=== PATIENT | female | born 1950 | race Caucasian/White ===

== ENCOUNTER → 2021-09-14 12:34 | Outpatient (CLI) | payer MEDICARE, MEDICAID, SELFPAY ==
[2021-09-14 13:04] LABS: Basophils # 0.1 K/mm3 (0-0.2); Basophils % 1.1 % (0.1-2.0); Eosinophils # 0.4 K/mm3 (0.0-0.4); Eosinophils % 4.3 % (0.1-12.0); Hemoglobin 15.9 g/dL (12.2-16.2); Lymphocytes # 2.3 K/mm3 (0.7-4.5); Lymphocytes % 23.9 % (10-50); Mean Corpuscular HGB Conc 31.3 g/dL (31.8-35.4); Mean Corpuscular Hemoglobin 30.2 pg (27.0-31.2); Mean Corpuscular Volume 96.7 fl (81-99); Mean Platelet Volume 10.1 fl (7.4-10.4); Monocytes # 0.4 K/mm3 (0.1-1.0); Neutrophils # 6.5 K/mm3 (1.8-7.8); Neutrophils % 66.7 % (37.0-80.0); Platelet Count 211 K/mm3 (142-424); Red Blood Count 5.28 M/mm3 (4.20-5.40); Red Cell Distribution Width 14.6 % (11.5-17.5); White Blood Count 9.8 K/mm3 (4.8-10.8)
[2021-09-14 14:06] LABS: Alanine Aminotransferase 13 U/L (12-78); Albumin Level 3.9 g/dl (3.5-5.0); Albumin/Globulin Ratio 1.6 (1.1-1.8); Alkaline Phosphatase 129 U/L (38-126); Aspartate Amino Transferase 21 U/L (14-36); Bilirubin,Total 0.5 mg/dl (0.2-1.3); Blood Urea Nitrogen 9 mg/dl (7-17); Calcium 9.7 mg/dl (8.4-10.2); Carbon Dioxide 24 mmol/L (22.0-30.0); Chloride 109 mmol/L (98-107); Chol/HDL Ratio 5.3 (1-3.5); Cholesterol 187 mg/dl (140-200); Estimated Glomerular Filt Rate 49 ml/min (>60); GFR (African American) 59 ML/MIN (>60); Globulin 2.4 g/dL (1.3-3.2); Glucose 119 mg/dl (74-100); HDL Cholesterol 35 mg/dl (40-60); Sodium 140 mmol/L (136-145); Total Protein,Serum 6.3 g/dl (6.3-8.2); Triglycerides 149 mg/dl (30-150); VLDL Cholesterol 30 mg/dL (0-40)
[2021-09-14 14:17] LABS: Direct LDL Cholesterol 124.01 mg/dL (100-129)
[2021-09-14 14:34] LABS: Hemoglobin A1C 5.7 % (4.0-6.0)
[2021-09-18 17:18] LABS: Thyroid Stimulating Immunoglob <0.10 IU/L (0.00-0.55)
[2021-09-19 10:49] LABS: Free Thyroxine Index 4.6 ug/dL (5.93-13.13); Triiodothryronine (T3) Uptake 35 % (23.5-40.5)
[2021-09-19 11:03] LABS: Thyroid Stimulating Hormone 2.06 uIU/mL (0.465-4.68)
== END ==
PROVIDERS: PCP Internal Medicine Adolescent Medicine; Visit Provider Internal Medicine Adolescent Medicine
DX: I50.22 Chronic systolic (congestive) heart failure (principal); E11.9 Type 2 diabetes mellitus without complications; E78.2 Mixed hyperlipidemia; E05.90 Thyrotoxicosis, unspecified without thyrotoxic crisis or storm; N18.30 Chronic kidney disease, stage 3 unspecified; Z79.84 Long term (current) use of oral hypoglycemic drugs
CPT/HCPCS: 36415; 80053; 80061; 83036; 84436; 84443; 84445; 84479; 85025

== ENCOUNTER 2021-10-17 13:30 | Inpatient (IN) | payer MEDICARE, MEDICAID, SELFPAY ==
[2021-10-17] VITALS (13 sets, daily range): BP systolic 96–142; BP diastolic 53–91; PULSE 70–97; RESP 18–24; TEMP 36.4–37.5; O2SAT 72–97; BMI 31.1; BMI 29.9
[2021-10-17 14:05] LABS: POC Glucose,Bedside 170 (70-110)
--- NOTE | 2021-10-17 14:37 | XR_ITS ---
FINAL REPORT CLINICAL HISTORY: weakness,soa, ssmoker FINDINGS: The heart size is normal. The mediastinum is normal. There are bibasilar pulmonary opacities likely representing bilateral pneumonia. There are no pleural effusions. There is no pneumothorax. There is no osseous abnormality. IMPRESSION: Bibasilar pulmonary opacities likely representing bilateral pneumonia. Reviewed, Interpreted and Dictated by Juliocesar Sanchez III, MD Transcribed by Pedro Hernandez Authenticated by Juliocesar Sanchez III, MD on 10/17/2021 03:53:15 PM [facility]
[2021-10-17 14:49] LABS: Influenza A, PCR Not Detected (NotDetected); Influenza B, PCR Not Detected (NotDetected)
[2021-10-17 14:50] LABS: Basophils # 0.1 K/mm3 (0-0.2); Basophils % 1.2 % (0.1-2.0); Eosinophils # 0.2 K/mm3 (0.0-0.4); Eosinophils % 2.6 % (0.1-12.0); Hematocrit 42.6 % (37.0-47.0); Hemoglobin 13.5 g/dL (12.2-16.2); Lymphocytes # 1.7 K/mm3 (0.7-4.5); Lymphocytes % 18.4 % (10-50); Mean Corpuscular HGB Conc 31.6 g/dL (31.8-35.4); Mean Corpuscular Hemoglobin 30.4 pg (27.0-31.2); Mean Platelet Volume 10.3 fl (7.4-10.4); Monocytes # 0.5 K/mm3 (0.1-1.0); Neutrophils # 6.7 K/mm3 (1.8-7.8); Neutrophils % 72.8 % (37.0-80.0); Platelet Count 141 K/mm3 (142-424); Red Blood Count 4.44 M/mm3 (4.20-5.40); White Blood Count 9.1 K/mm3 (4.8-10.8)
[2021-10-17 14:58] LABS: Alanine Aminotransferase 20 U/L (12-78); Albumin Level 2.9 g/dl (3.5-5.0); Albumin/Globulin Ratio 1.1 (1.1-1.8); Alkaline Phosphatase 53 U/L (38-126); Anion Gap 8.2 mEq/L (5-15); Aspartate Amino Transferase 29 U/L (14-36); Bilirubin,Total 0.7 mg/dl (0.2-1.3); Blood Urea Nitrogen 28 mg/dl (7-17); Calcium 8.8 mg/dl (8.4-10.2); Carbon Dioxide 33 mmol/L (22.0-30.0); Chloride 106 mmol/L (98-107); Creatinine Clearance Estimated 44 mL/min (50-200); Estimated Glomerular Filt Rate 37 ml/min (>60); GFR (African American) 45 ML/MIN (>60); Globulin 2.6 g/dL (1.3-3.2); Glucose 150 mg/dl (74-100); Potassium 3.2 mmoL/L (3.5-5.1); Sodium 144 mmol/L (136-145); Total Protein,Serum 5.5 g/dl (6.3-8.2)
[2021-10-17 15:05] LABS: Microscopic, Urine URINE MICROSCOPIC (MICROSCOPIC)
[2021-10-17 15:07] LABS: Appearance,Urine CLEAR (Clear); Bilirubin,Urine Negative (Negative); Blood, Urine Negative (Negative); Color,Urine YELLOW (Yellow); Glucose,Urine (UA) Negative (Negative); Ketones,Urine Negative (Negative); Leukocyte Esterase,Urine Negative (Negative); Nitrate,Urine Negative (Negative); Protein,Urine Negative (Negative); Urobilinogen,Urine 0.2 EU/dl (0.2)
[2021-10-17 15:10] LABS: Troponin I 0.07 ng/ml (0.00-0.034)
--- NOTE | 2021-10-17 15:11 | HMH.EDGENADL ---
ED Disposition Clinical Impression: Pneumonia due to COVID-19 virus Respiratory failure with hypoxia Qualifiers: Chronicity: acute on chronic Qualified Code(s): J96.21 - Acute and chronic respiratory failure with hypoxia Disposition: Admitted As Inpatient Condition on Discharge: Fair Referrals: Neto Stephen MD [Primary Care Provider] - - Critical Care Critical Care Time: No Attestation: On 10/17/21, the high probability of a clinically significant, sudden or life threatening deterioration of the following system(s) required my full and direct attention, intervention and personal management. The time I documented below is in addition to time spent performing reported procedures but includes the following listed in this critical care notation. Medical Decision Making - [place] Inquiry Pt receiving controlled substance: No Vital Signs: 10/17/21 13:31 10/17/21 13:33 10/17/21 14:00 Temperature 99.5 F Temperature Source Oral Pulse Rate 94 H Pulse Rate [Left Radial] 97 H Respiratory Rate 24 18 Blood Pressure 102/65 L Blood Pressure [Right Arm] 102/65 L Blood Pressure Mean Blood Pressure Mean [Right Arm] 77 Blood Pressure Source Automatic Cuff Blood Pressure Source [Right Arm] Automatic Cuff Blood Pressure Position Sitting Blood Pressure Position [Right Arm] Sitting 02 Sat by Pulse Oximetry 72 L 96 96 Oxygen Delivery Method Room Air Nasal Cannula Nasal Cannula Oxygen Flow Rate (LPM) 5 4 10/17/21 14:15 10/17/21 15:14 10/17/21 16:15 Temperature Temperature Source Pulse Rate 94 H 91 H 84 Pulse Rate [Left Radial] Respiratory Rate 18 18 24 Blood Pressure 110/64 110/70 124/67 Blood Pressure [Right Arm] Blood Pressure Mean Blood Pressure Mean [Right Arm] Blood Pressure Source Automatic Cuff Blood Pressure Source [Right Arm] Blood Pressure Position Sitting Sitting Blood Pressure Position [Right Arm] 02 Sat by Pulse Oximetry 94 L 97 97 Oxygen Delivery Method Nasal Cannula Nasal Cannula Nasal Cannula Oxygen Flow Rate (LPM) 4 4 4 10/17/21 16:30 10/17/21 17:01 Temperature Temperature Source Pulse Rate 80 82 Pulse Rate [Left Radial] Respiratory Rate 18 21 Blood Pressure 121/70 96/59 L Blood Pressure [Right Arm] Blood Pressure Mean 87 Blood Pressure Mean [Right Arm] Blood Pressure Source Blood Pressure Source [Right Arm] Blood Pressure Position Blood Pressure Position [Right Arm] 02 Sat by Pulse Oximetry 96 97 Oxygen Delivery Method Nasal Cannula Oxygen Flow Rate (LPM) 4 - Lab Data Lab Results 10/17/21 13:56: POC Glucose 170 H 10/17/21 14:37: Urine Color Yellow, Urine Appearance Clear, Urine pH 6.0, Ur Specific [place] 1.010, Urine Protein Negative, Urine Glucose (UA) Negative, Urine Ketones Negative, Urine Blood Negative, Urine Nitrate Negative, Urine Bilirubin Negative, Urine Urobilinogen 0.2, Ur Leukocyte Esterase Negative, Urine RBC None, Urine WBC Occasional, Ur Squamous Epith Cells 5-10, Urine Bacteria None 10/17/21 14:37: SARS-CoV-2 (PCR) Detected A, Influenza A Untype (PCR) Not detected, Influenza Type B (PCR) Not detected 10/17/21 14:38: WBC 9.1, RBC 4.44, Hgb 13.5, Hct 42.6, MCV 96.0, MCH 30.4, MCHC 31.6 L, RDW 15.0, Plt Count 141 L, MPV 10.3, Neut % (Auto) 72.8, Lymph % (Auto) 18.4, [place] % (Auto) 5.0, Eos % (Auto) 2.6, Baso % (Auto) 1.2, Neut # (Auto) 6.7, Lymph # (Auto) 1.7, [place] # (Auto) 0.5, Eos # (Auto) 0.2, Baso # (Auto) 0.1 10/17/21 14:38: Sodium 144, Potassium 3.2 L, Chloride 106, Carbon Dioxide 33 H, Anion Gap 8.2, BUN 28 H, Creatinine 1.40 H, Estimated Creat Clear 44, Estimated GFR 37 L, Est GFR ( Amer) 45 L, Glucose 150 H, Calcium 8.8, Total Bilirubin 0.7, AST 29, ALT 20, Alkaline Phosphatase 53, Troponin I 0.07 H, Total Protein 5.5 L, Albumin 2.9 L, Globulin 2.6, Albumin/Globulin Ratio 1.1 10/17/21 15:23: Specimen Source Left brachial, O2 % 4, ABG pH 7.40, ABG pCO2 51.5 H, ABG pO2 72.4 L, ABG HCO3 30.8 H, ABG
[2021-10-17 15:14] LABS: Coronavirus 19, PCR Detected (NotDetected)
[2021-10-17 15:19] LABS: WBC,Urine Occasional #/hpf (0-3)
--- NOTE | 2021-10-17 15:19 | ECG_ITS ---
APPROVED REPORT Exam: Resting ECG HR:87 bpm ECG Measurements Heart Rate 87 AXES [place] 151 P 81 QRSd 80 QRS 50 QT 439 T 35 QTc 483 Conclusion SINUS RHYTHM WITH OCCASIONAL VENTRICULAR PREMATURE COMPLEXES NONSPECIFIC ST & T-WAVE ABNORMALITY PROLONGED QT INTERVAL ABNORMAL ECG UNCONFIRMED REPORT Electronically signed by : Angel Zhong MD 10/17/2021 17:42:58
--- NOTE | 2021-10-17 15:23 | CT_ITS ---
FINAL REPORT TECHNIQUE: Then section axial CT images of the chest were obtained with contrast. Three-D reformatted images were also obtained.This study was performed with techniques to keep radiation doses as low as reasonably achievable (ALARA). Individualized dose reduction techniques using automated exposure control or adjustment of mA and/or kV according to the patient''s size were employed. CLINICAL HISTORY: covid, hypoxia COMPARISON: PE protocol from [facility] dated September 30, 2021 FINDINGS: There is a stable right thyroid nodule. There is no evidence of pulmonary embolism. There is no evidence of thoracic aortic aneurysm or dissection. There is enlargement of the central pulmonary arteries of uncertain significance that may represent pulmonary hypertension. 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 There is worsening mediastinal and hilar adenopathy that is favored to be reactive. There are worsening bilateral pulmonary opacities consistent with bilateral pneumonia. Limited images of the upper abdomen demonstrate prior cholecystectomy. IMPRESSION: No evidence of pulmonary embolism. Worsening bilateral pulmonary opacities consistent with bilateral pneumonia that may represent a viral pneumonia. Worsening mediastinal and hilar adenopathy is favored to be reactive. Enlarged central pulmonary arteries of uncertain significance that may represent pulmonary hypertension. Reviewed, Interpreted and Dictated by Juliocesar Sanchez III, MD Transcribed by Pedro Hernandez Authenticated by Juliocesar Sanchez III, MD on 10/17/2021 04:30:[address] [facility]
[2021-10-17 15:45] LABS: ABG Base Excess 5.9 mmol/L (-2.4-2.3); ABG HCO3 30.8 mmhg (22.0-26.0); ABG Oxygen Saturation 95 % (90-100); ABG PO2 72.4 mmhg (80-100); ABG TCO2 32.4 mmhg (23-27); Oxygen 4 %
[2021-10-17 15:46] LABS: ABG PCO2 51.5 mmhg (35.0-45.0); Source Left Brachial
[2021-10-17 18:25] LABS: Troponin I 0.07 ng/ml (0.00-0.034)
--- NOTE | 2021-10-17 20:41 | PC.NURSE ---
PT ARRIVED TO FLOOR VIA STRETCHER FROM ED W/STAFF @ 2039
[2021-10-17 22:13] LABS: Troponin I 0.06 ng/ml (0.00-0.034)
[2021-10-18] VITALS (11 sets, daily range): BP systolic 101–122; BP diastolic 59–76; PULSE 60–80; RESP 16–22; TEMP 36.4–37.2; O2SAT 93–100; BMI 29.8
--- NOTE | 2021-10-18 07:08 | PC.NURSE ---
Pt alert x3. When patient arrived to floor, pt was very drowsy. Pt would wake up when shaken and would answer yes/no question and fall back asleep. 2100 meds were held due to pt unable to stay awake/drink. Pt has become more alert t/o night and will now open her eyes when you say her name. Cam in place draining clear yellow urine. Pt is very excoriated t/o her bottom/coccyx, she has been washed and a new brief was applied. Pt has been provided oral care and turned q2h. Bed alarm on for safety. Call light in reach.
--- NOTE | 2021-10-18 07:15 | HMH.PHAVTE ---
[facility] VTE Monitoring - Patient Demographics Admission date: 10/17/21 Report Date: 10/18/21 Time: 07:15 Allergies/Adverse Reactions: Patient Allergies No Known Allergies Allergy (Verified 10/17/21 14:36) Height: 1.57 m Weight: 73.652 kg Patient Problems: Current Active Problems Pneumonia due to COVID-19 virus (Acute) Respiratory failure with hypoxia (Acute) - VTE Risk Labs: VTE Related Lab Results Hgb 13.5 g/dL (12.2-16.2) 10/17/21 14:38 Hct 42.6 % (37.0-47.0) 10/17/21 14:38 Plt Count 141 K/mm3 (142-424) L 10/17/21 14:38 BUN 28 mg/dl (7-17) H 10/17/21 14:38 Creatinine 1.40 mg/dl (0.52-1.04) H 10/17/21 14:38 Estimated Creat Clear 44 mL/min (50-200) 10/17/21 14:38 - Prophylaxis VTE Prophylaxis Ordered?: Yes Types of VTE Prophylaxis: TEDS Knee High Location of Applied Device: Bilateral Lower Extremeties
--- NOTE | 2021-10-18 07:32 | HMH.PHAINT ---
MEDICATION RECONCILIATION COMPLETED ON PATIENT USING EXTERNAL FILL HISTORY FROM PHARMACY. -TIMMY OROSCO, JESIKAD
[2021-10-18 08:53] LABS: Basophils % 0.3 % (0.1-2.0); Eosinophils % 0.6 % (0.1-12.0); Hematocrit 39.9 % (37.0-47.0); Hemoglobin 12.6 g/dL (12.2-16.2); Lymphocytes # 0.7 K/mm3 (0.7-4.5); Lymphocytes % 10.4 % (10-50); Mean Corpuscular HGB Conc 31.6 g/dL (31.8-35.4); Mean Corpuscular Hemoglobin 30.3 pg (27.0-31.2); Mean Corpuscular Volume 95.9 fl (81-99); Monocytes # 0.1 K/mm3 (0.1-1.0); Neutrophils # 5.5 K/mm3 (1.8-7.8); Neutrophils % 86.6 % (37.0-80.0); Platelet Count 123 K/mm3 (142-424); Red Blood Count 4.16 M/mm3 (4.20-5.40); Red Cell Distribution Width 14.9 % (11.5-17.5); White Blood Count 6.3 K/mm3 (4.8-10.8)
[2021-10-18 08:56] LABS: Chloride 107 mmol/L (98-107); Sodium 140 mmol/L (136-145)
[2021-10-18 08:57] LABS: Potassium 4.2 mmoL/L (3.5-5.1)
--- NOTE | 2021-10-18 08:57 | HMH.HP ---
*Admission Date: 10/17/21 *Chief complaint: Weakness/cough/congestion/community-acquired pneumonia *History of present illness: 71-year-old white female with history of COPD, who was diagnosed with COVID-19 on September 28 and admitted overnight at the [facility] in [place], [place]. She was diagnosed with staph epi in her blood based on 2 blood cultures and was discharged on October 02 with cefdinir to complete antibiotic course after being treated in the hospital with remdesivir, vitamins and oxygen therapy as well as steroids. She has been at home, staying with her son and has apparently not gotten better with continued coughing, worsening oxygen requirement and weakness. Her daughter brought her to the emergency department yesterday. She was found to be weak, slightly hyponatremic, pneumonic infiltrates on chest x-ray was admitted to hospital. Apparently according to ER notes there is some discord in relationship issue between the daughter and the son with whom she lives. This morning patient is not really clear about details of her medical history and states that she still feels tired. [facility] History I have reviewed the patient's past medical history: Yes Medical History: Reports:: Chronic Obstructive Pulmonary Disease (COPD) (Farhad comes hardcore this day along get a lookup in my system open her oka) *Have you ever received a pneumonia vaccine?: No *Have you received a flu vaccine this season?: No Comment:: Patient is unable to give a detailed history. Unsure why she is on Xarelto. Office records are currently unavailable. - *Social History Smoking Status: Current every day smoker Tobacco Type: cigarettes # Packs/Day (cigarettes): 1 Alcohol Intake: never *Occupational Status:: unemployed Housing: house Household Members: children *Travel in the last 8 weeks: None Family Hx:: Unable to obtain Review of Systems - Review of Systems Review of systems:: pertinent systems reviewed and negative unless documented below Shortness of air, weakness. Denies cardiac symptoms. Meds Home Medications Medication Instructions Recorded Confirmed Type Albuterol Sulfate [Proair 2 puffs IH Q4HP PRN 10/17/21 10/18/21 History Respiclick] Aspirin [Aspirin 81mg chewable 81 mg PO DAILY 10/17/21 10/17/21 History tab] Cyclobenzaprine HCl 5 mg PO TIDP PRN 10/17/21 10/17/21 History [Cyclobenzaprine 5mg Tab*] Furosemide [Furosemide 40MG tAB*] 20 mg PO DAILY 10/17/21 10/18/21 History Gabapentin 300 mg PO TID 10/17/21 10/17/21 History Glimepiride 1 mg PO DAILY 10/17/21 10/17/21 History Guaifenesin/Dextromethorphan 1 each PO DAILY 10/17/21 10/17/21 History [Mucus Relief Dm Cough Tablet] Metoprolol Succinate [Toprol XL 25 mg PO DAILY 10/17/21 10/17/21 History 25mg tablet] Montelukast Sodium 10 mg PO PM 10/17/21 10/18/21 History Ondansetron [Zofran 4mg ODT] 4 mg PO TIDP PRN 10/17/21 10/17/21 History Potassium Chloride 10 meq PO DAILY 10/17/21 10/17/21 History Pravastatin Sodium 80 mg PO HS 10/17/21 10/17/21 History Rivaroxaban [Xarelto 20mg Tablet*] 20 mg PO QPMWITHMEAL 10/17/21 10/18/21 History Sertraline HCl 50 mg PO DAILY 10/17/21 10/17/21 History allopurinoL [Allopurinol 100mg 50 mg PO DAILY 10/17/21 10/18/21 History tablet] Ergocalciferol (Vitamin D2) 50,000 unit PO WEEKLY 10/18/21 10/18/21 History [Vitamin D2] Fluticasone/Vilanterol [Breo 1 puff IH DAILY 10/18/21 10/18/21 History Ellipta 100-25 Mcg INH] Allergies Allergy/AdvReac Type Severity Reaction Status Date / Time No Known Allergies Allergy Verified 10/17/21 14:36 Exam Vital signs and Labs for Last 24 Hours: Temp Pulse Resp BP Pulse Ox 97.5 F L 60 16 122/67 95 10/18/21 08:00 10/18/21 08:00 10/18/21 08:00 10/18/21 08:00 10/18/21 08:00 Laboratory Results - last 24 hr 10/17/21 13:56: POC Glucose 170 H 10/17/21 14:37: Urine Color Yellow, Urine Appearance Clear, Urine pH 6.0, Ur Specific [place] 1.010,
[2021-10-18 08:59] LABS: Blood Urea Nitrogen 31 mg/dl (7-17); Creatinine Clearance Estimated 45 mL/min (50-200); Estimated Glomerular Filt Rate 40 ml/min (>60); GFR (African American) 49 ML/MIN (>60)
[2021-10-18 09:00] LABS: Anion Gap 9.2 mEq/L (5-15); Carbon Dioxide 28 mmol/L (22.0-30.0); Glucose 176 mg/dl (74-100); MANUAL DIFFERENTIAL MANUAL DIFFERENTIAL (MANUAL DIFF)
--- NOTE | 2021-10-18 09:14 | HMH.PTEV ---
Physical Therapy Evaluation Rehab PT IP Evaluation Start: 10/18/21 09:02 Freq: ONCE Status: Active Protocol: Document 10/18/21 09:03 PHOJENELLE (Rec: 10/18/21 09:14 PHORNE [id number]) Subjective/History History History 71 yowf adm to [facility] with generalized weakness and malaise, COVID-19 positive upon admission with likely viral PNA. She reports living with her son in mobile home with 2-3 steps to enter and using a cane for all mobility prior to adm. Subjective Subjective She has no c/o pain this am, but reports feeling very tired . Rehab PT IP Eval Objective Appearance Patient Behavior Appropriate Patient Orientation Person,Time Difficulty following instructions none Speech Pattern Clear Ambulation Patient Able to Ambulate Yes Ambulation Observation IP General Gait Pattern Observation Wide Based Gait,Shuffling Step Ambulation Distance (feet) 3 Ambulation Assistive Device None Ambulation Ability Minimal x 1 (25% assist) Balance Ability to Arise Able, uses arms to help Sitting Balance Steady, safe Standing Balance Steady, wide stance Dynamic Sitting Balance Ability Good Dynamic Standing Balance Ability Fair Transfers Bed Transfer Ability Contact Guard/Hand Hold Chair Transfer Ability Minimal x 1 (25% assist) Sit to Stand Bed Transfer Ability Minimal x 1 (25% assist) Sit to Stand Chair Transfer Ability Minimal x 1 (25% assist) ROM All Extremities PT ROM Status WFL MMT All Extremities PT MMT WFL Rehab PT IP prob,goals,plan Problems Date of Evaluation: 10/18/21 PT IP Problems Transfers,Gait Rehab Potential Rehab Potential Good Plan PT Intervention Plan Bed Mobility,Transfers,Gait, Self care,Therapeutic Exercise PT Plan Frequency BID Duration LOS Discharge Goals Bed Transfer Ability Contact Guard/Hand Hold Sit to Stand Chair Transfer Ability Contact Guard/Hand Hold Ambulation Assistive Device Straight Cane Ambulation Distance (feet) 30 Discharge Plan PT Discharge Plan Pt is currently appropriate to return hoem with family assist once medically stable. Recommend Home health therapy upon d/c. G -code Requ
[2021-10-18 10:06] LABS: Lymphocytes % 14 % (10-50); Monocytes % 1 % (2-9); Neutrophils % 85 % (42-76); Platelet Estimate Slight Decrease; RBC Morphology Normal; Total Cells Counted 100
[2021-10-18 10:07] LABS: POC Glucose,Bedside 139 (70-110)
[2021-10-19] VITALS (9 sets, daily range): BP systolic 102–135; BP diastolic 52–71; PULSE 55–85; RESP 16–22; TEMP 36.4–36.9; O2SAT 92–99; BMI 31.1
[2021-10-19 06:53] LABS: Basophils % 0.3 % (0.1-2.0); Eosinophils % 0.1 % (0.1-12.0); Hematocrit 37.7 % (37.0-47.0); Hemoglobin 11.8 g/dL (12.2-16.2); Lymphocytes % 14.8 % (10-50); Mean Corpuscular HGB Conc 31.3 g/dL (31.8-35.4); Mean Corpuscular Hemoglobin 30.1 pg (27.0-31.2); Mean Corpuscular Volume 95.9 fl (81-99); Mean Platelet Volume 10.6 fl (7.4-10.4); Monocytes # 0.3 K/mm3 (0.1-1.0); Monocytes % 3.9 % (1.7-9.3); Neutrophils # 5.6 K/mm3 (1.8-7.8); Neutrophils % 80.9 % (37.0-80.0); Platelet Count 133 K/mm3 (142-424); Red Blood Count 3.93 M/mm3 (4.20-5.40); Red Cell Distribution Width 15.1 % (11.5-17.5); White Blood Count 6.9 K/mm3 (4.8-10.8)
[2021-10-19 06:56] LABS: Chloride 113 mmol/L (98-107); Potassium 4.1 mmoL/L (3.5-5.1); Sodium 140 mmol/L (136-145)
[2021-10-19 06:59] LABS: Alanine Aminotransferase 14 U/L (12-78); Albumin Level 2.5 g/dl (3.5-5.0); Alkaline Phosphatase 55 U/L (38-126); Anion Gap 4.1 mEq/L (5-15); Aspartate Amino Transferase 25 U/L (14-36); Bilirubin,Total 0.2 mg/dl (0.2-1.3); Blood Urea Nitrogen 31 mg/dl (7-17); Carbon Dioxide 27 mmol/L (22.0-30.0); Creatinine Clearance Estimated 51 mL/min (50-200); Estimated Glomerular Filt Rate 44 ml/min (>60); GFR (African American) 53 ML/MIN (>60); Globulin 2.5 g/dL (1.3-3.2)
[2021-10-19 07:00] LABS: Glucose 94 mg/dl (74-100)
--- NOTE | 2021-10-19 08:42 | HMH.ACPN2 ---
Internal Medicine - PN: Subj *Date: 10/19/21 *Time: 08:42 Interval history: I reviewed PT/OT notes from yesterday. They felt patient would do well with a home health environment with some type of support program. Unfortunately, patient states that she has nowhere to go home to. She was living with her son and she states he does not want me back. Her daughter brought her to the emergency department, has not been here at the hospital when I have made rounds, but patient states that her daughter cannot take her back home because she lives with her girlfriend and her boyfriend and they do not have any space. Exam Vital signs and Labs for Last 24 Hours: Temp Pulse Resp BP Pulse Ox 97.7 F 57 L 16 104/52 L 99 10/19/21 04:00 10/19/21 06:40 10/19/21 04:00 10/19/21 04:00 10/19/21 06:40 Laboratory Results - last 24 hr 10/17/21 21:20: POC Glucose 139 H 10/18/21 08:41: WBC 6.3 D, RBC 4.16 L, Hgb 12.6, Hct 39.9, MCV 95.9, MCH 30.3, MCHC 31.6 L, RDW 14.9, Plt Count 123 L, MPV 10.0, Neut % (Auto) 86.6 H, Lymph % (Auto) 10.4, [place] % (Auto) 2.0, Eos % (Auto) 0.6, Baso % (Auto) 0.3, Neut # (Auto) 5.5, Lymph # (Auto) 0.7, [place] # (Auto) 0.1, Eos # (Auto) 0.0, Baso # (Auto) 0.0, Total Counted 100, Neutrophils % (Manual) 85 H, Lymphocytes % (Manual) 14, Monocytes % (Manual) 1 L, Platelet Estimate Slight decrease, RBC Morphology Normal 10/18/21 08:41: Sodium 140, Potassium 4.2 D, Chloride 107, Carbon Dioxide 28, Anion Gap 9.2, BUN 31 H, Creatinine 1.30 H, Estimated Creat Clear 45, Estimated GFR 40 L, Est GFR ( Amer) 49 L, Glucose 176 H, Calcium 8.0 L 10/19/21 06:25: WBC 6.9, RBC 3.93 L, Hgb 11.8 L, Hct 37.7, MCV 95.9, MCH 30.1, MCHC 31.3 L, RDW 15.1, Plt Count 133 L, MPV 10.6 H, Neut % (Auto) 80.9 H, Lymph % (Auto) 14.8, [place] % (Auto) 3.9, Eos % (Auto) 0.1, Baso % (Auto) 0.3, Neut # (Auto) 5.6, Lymph # (Auto) 1.0, [place] # (Auto) 0.3, Eos # (Auto) 0.0, Baso # (Auto) 0.0 10/19/21 06:25: Sodium 140, Potassium 4.1, Chloride 113 H, Carbon Dioxide 27, Anion Gap 4.1 L, BUN 31 H, Creatinine 1.20 H, Estimated Creat Clear 51, Estimated GFR 44 L, Est GFR ( Amer) 53 L, Glucose 94 D, Calcium 7.0 L, Total Bilirubin 0.2, AST 25, ALT 14 D, Alkaline Phosphatase 55, Total Protein 5.0 L, Albumin 2.5 L, Globulin 2.5, Albumin/Globulin Ratio 1.0 L I & O for Last 24 hours: Intake & Output 10/16/21 10/17/21 10/18/21 10/19/21 11:59 11:59 11:59 11:59 Intake Total 270 / 270 240 / 240 Output Total 1080 / 1080 Balance -810 / -810 240 / 240 Weight 162 lb 4.163 oz 169 lb 6 oz Narrative: Alert, much more talkative than yesterday. Wearing 2 L nasal cannula oxygen and is comfortable. Loose rhonchi in the chest, otherwise much better air entry. Heart rate regular. Abdomen soft, oropharynx clear, neurologically intact except for some memory issues. NT exam clear. Extremities warm and well-perfused. Assessment and Plan (1) Pneumonia due to COVID-19 virus Status: Acute Category: Medical Code(s): U07.1 - COVID-19; J12.82 - Pneumonia due to coronavirus disease 2019 (2) Respiratory failure with hypoxia Status: Acute Qualifiers: Chronicity: acute on chronic Qualified Code(s): J96.21 - Acute and chronic respiratory failure with hypoxia Category: Medical Code(s): J96.91 - Respiratory failure, unspecified with hypoxia - Assessment and plan all Dx Assessment and Plan for all problems:: Patient would be a reasonable candidate for discharge but apparently there are significant social concerns. Care management consult for possible long-term care/personal care bed versus consulting with family to see the veracity of the patient's report.
--- NOTE | 2021-10-19 10:12 | SW/DCPLANNER ---
Addendum entered by Janessa Lau 10/19/21 12:26: Elizabeth hernandez/ [facility] has stated that she is reviewing patient information. Roselyn hernandez/ [facility] has stated they are currently not accepting admissions at this time. Addendum entered by Janessa Lau 10/19/21 10:46: I was able to contact patients POA (Shey Key) at [phone]. Shey has stated that patient was living with her son prior to hospital admission but they are interested in short term placement once medically stable for discharge. I explained that PT stated that patient could return home with home health but I will search for placement. I also explained that due to having a managed Medicare ([employer]) they may not approve patient for SNF level of care due to PT stating patient can return home. I then had discussion if [employer] denies skilled care then patient could go under Medicaid pending: Shey was quick to deny Medicaid due to payment being all of monthly income but $40. Shey has asked that I search for a skilled bed then follow up with her. I have faxed patient information to [facility] and [facility] at this time. I have left a message for Ben hernandez/ [facility] to contact me regarding bed availability. Shey did not have a preference for a facility for this patient. Original Note: This patient is currently medically stable for discharge but stating that she has nowhere to go. Patient was living with her son prior to admission and now states that he does not want her back at his house. Patient also stated that her daughter is her POA but does not have room for her to discharge to her house. I have attempted to call number listed under patients name in chart ([phone]) w/ no answer at this hortensia. There are no other name or numbers listed for this patient. Patients nurse (Saritha Vincent) is fixing to see if patient has a cell phone in her room w/ contact numbers. I will continue trying to get ahold of patients family: if unsuccessful then [facility] referral will be considered.
[2021-10-19 12:33] LABS: POC Glucose,Bedside 86 (70-110)
[2021-10-19 17:54] LABS: POC Glucose,Bedside 90 (70-110)
--- NOTE | 2021-10-19 20:39 | SW/DCPLANNER ---
Addendum entered by Eusebia Will 10/20/21 10:34: PATIENT CAN DISCHARGE TO [facility] TODAY, WILL NOTIFY HER SON AND DAUGHTER... Addendum entered by Eusebia iWll 10/20/21 10:23: SPOKE WITH [facility] TODAY AND SHE SAID THEY ARE WAITING ON AUTHORIZATION FROM THE INSURANCE COMPANY... SHE STATED THEY ARE ATTEMPTING TO DO THE WAIVER SO HOPEFULLY SHE CAN GO TODAY.... Original Note: PATIENT INFORMATION WAS FAXED TO [facility] AND [facility]. PATIENTS SON WISHES FOR HER TO STAY IN [place] IF A BED IS OBTAINABLE. [facility] CAME TO SEE PATIENT AND APPEARS TO BE INTERESTED, IF ACCEPTED SHE MAY D/C THERE POSSIBLY [facility]. THERE IS ALSO A MEDICAID BED AVAILABLE THIS MAY ALSO BE AN OPTION IF DENIED BY HER [employer].
[2021-10-20] VITALS: BP 125/67; PULSE 70; PULSE 78; RESP 24; TEMP 36.9; O2SAT 92
[2021-10-20 03:56] VITALS: BP 160/70; PULSE 73; RESP 20; TEMP 36.9; O2SAT 95
[2021-10-20 06:00] VITALS: BMI 32.1
[2021-10-20 06:30] VITALS: PULSE 64; O2SAT 98
[2021-10-20 07:22] LABS: Chloride 111 mmol/L (98-107); Potassium 3.9 mmoL/L (3.5-5.1); Sodium 136 mmol/L (136-145)
[2021-10-20 07:25] LABS: Alanine Aminotransferase 14 U/L (12-78); Albumin Level 2.4 g/dl (3.5-5.0); Albumin/Globulin Ratio 1.1 (1.1-1.8); Alkaline Phosphatase 53 U/L (38-126); Anion Gap 4.9 mEq/L (5-15); Aspartate Amino Transferase 30 U/L (14-36); Bilirubin,Total 0.3 mg/dl (0.2-1.3); Blood Urea Nitrogen 22 mg/dl (7-17); Carbon Dioxide 24 mmol/L (22.0-30.0); Creatinine Clearance Estimated 64 mL/min (50-200); Estimated Glomerular Filt Rate 55 ml/min (>60); GFR (African American) 66 ML/MIN (>60); Globulin 2.2 g/dL (1.3-3.2); Glucose 85 mg/dl (74-100); Total Protein,Serum 4.6 g/dl (6.3-8.2)
[2021-10-20 07:26] LABS: Calcium 6.9 mg/dl (8.4-10.2)
--- NOTE | 2021-10-20 07:31 | P.PN_ITS ---
Internal Medicine - PN: Subj *Date: 10/20/21 *Time: 07:31 Exam Vital signs and Labs for Last 24 Hours: Temp Pulse Resp BP Pulse Ox 98.4 F 64 20 160/70 H 98 10/20/21 03:56 10/20/21 06:30 10/20/21 03:56 10/20/21 03:56 10/20/21 06:30 Laboratory Results - last 24 hr 10/19/21 12:25: POC Glucose 86 10/19/21 17:30: POC Glucose 90 10/20/21 06:43: Sodium 136, Potassium 3.9, Chloride 111 H I & O for Last 24 hours: Intake & Output 10/17/21 10/18/21 10/19/21 10/20/21 23:59 23:59 23:59 23:59 Intake Total 150 / 150 360 / 360 600 / 600 Output Total 780 / 780 300 / 300 Balance -630 / -630 60 / 60 600 / 600 Weight 73.652 kg 73.6 kg 76.827 kg 79.107 kg Assessment and Plan (1) Pneumonia due to COVID-19 virus Status: Acute Category: Medical Code(s): U07.1 - COVID-19; J12.82 - Pne umonia due to coronavirus disease 2019 (2) Respiratory failure with hypoxia Status: Acute Qualifiers: Chronicity: acute on chronic Qualified Code(s): J96.21 - Acute and chronic respiratory failure with hypoxia Category: Medical Code(s): J96.91 - Respiratory failure, unspecified with hypoxia
[2021-10-20 08:00] VITALS: BP 122/65; PULSE 75; PULSE 81; RESP 22; TEMP 36.7; O2SAT 96
[2021-10-20 10:28] LABS: POC Glucose,Bedside 118 (70-110)
[2021-10-20 10:28] LABS: POC Glucose,Bedside 231 (70-110)
[2021-10-20 10:28] LABS: POC Glucose,Bedside 107 (70-110)
[2021-10-20 10:28] LABS: POC Glucose,Bedside 162 (70-110)
[2021-10-20 10:28] LABS: POC Glucose,Bedside 112 (70-110)
[2021-10-20 10:28] LABS: POC Glucose,Bedside 95 (70-110)
--- NOTE | 2021-10-20 10:36 | HMH.DCSUM ---
General - General Admission date:: 10/17/21 Discharge date: 10/20/21 HPI HPI: 71-year-old white female with history of COPD, who was diagnosed with COVID-19 on September 28 and admitted overnight at the [facility] in [place], [place]. She was diagnosed with staph epi in her blood based on 2 blood cultures and was discharged on October 02 with cefdinir to complete antibiotic course after being treated in the hospital with remdesivir, vitamins and oxygen therapy as well as steroids. She has been at home, staying with her son and has apparently not gotten better with continued coughing, worsening oxygen requirement and weakness. Her daughter brought her to the emergency department yesterday. She was found to be weak, slightly hyponatremic, pneumonic infiltrates on chest x-ray was admitted to hospital. Apparently according to ER notes there is some discord in relationship issue between the daughter and the son with whom she lives. This morning patient is not really clear about details of her medical history and states that she still feels tired. Hospital Course Hospital Course: 71-year-old female with multiple comorbidities admitted for Covid pneumonia and concern for community-acquired pneumonia as she has had COVID for over 2 weeks. On arrival she was found to be more hypoxic than baseline. Also had RISHI and mild dehydration. Admitted for management of these conditions. Improved with rehydration. Kidney function normalized. Treated with remdesivir during admission. Started on treatment for COVID with vitamins, Lovenox, and breathing treatments. Antibiotics initiated with levofloxacin. Received 4 days of IV antibiotics while inpatient. Will need to complete 3 more days for total of 7 days of levofloxacin. Back to baseline oxygen requirement prior to discharge. Will discharge to nursing facility for continued skilled care as well as possible transition to long-term care. Exam on day of discharge. Medically [facility] Objective Vital signs: Temp Pulse Resp BP Pulse Ox 98.0 F 81 22 122/65 96 10/20/21 08:00 10/20/21 08:00 10/20/21 08:00 10/20/21 08:00 10/20/21 08:00 no acute distress, obese, chronically ill appearing Comments: on 2L NC O2 - *Routine HEENT Exam Head: Present: normocephalic Eye: Present: EOMI, PERRL ENT: Present: mucous membranes moist - *Routine Neck Exam Present: supple - *Routine Respiratory Exam Present: CTA bilaterally, diminished air movement. Absent: wheezes, crackles - *Routine Cardiovascular Exam Present: RRR - *Routine Abdominal Exam Present: soft, normoactive bowel sounds. Absent: tenderness - *Routine Extremities Exam Present: edema. Absent: cyanosis, clubbing - *Routine Skin Exam Present: warm. Absent: rash Results Labs on day of discharge: Labs from last 24 hours 10/20/21 10/20/21 10/19/21 06:43 06:01 21:41 Sodium 136 Potassium 3.9 Chloride 111 H Carbon Dioxide 24 Anion Gap 4.9 L BUN 22 H D Creatinine 1.00 Estimated Creat Clear 64 Estimated GFR 55 L Est GFR ( Amer) 66 D Glucose 85 POC Glucose 112 H 95 Calcium 6.9 L Total Bilirubin 0.3 AST 30 ALT 14 Alkaline Phosphatase 53 Total Protein 4.6 L Albumin 2.4 L Globulin 2.2 Albumin/Globulin Ratio 1.1 10/19/21 10/19/21 10/19/21 17:30 12:25 05:06 Sodium Potassium Chloride Carbon Dioxide Anion Gap BUN Creatinine Estimated Creat Clear Estimated GFR Est GFR ( Amer) Glucose POC Glucose 90 86 107 Calcium Total Bilirubin AST ALT Alkaline Phosphatase Total Protein Albumin Globulin Albumin/Globulin Ratio 10/18/21 10/18/21 10/18/21 21:44 17:31 11:34 Sodium Potassium Chloride Carbon Dioxide Anion Gap BUN Creatinine Estimated Creat Clear Estimated GF
[2021-10-20 12:00] VITALS: BP 158/85; PULSE 70; PULSE 79; RESP 20; TEMP 36.7; O2SAT 98
[2021-10-20 12:19] LABS: POC Glucose,Bedside 105 (70-110)
== END 2021-10-20 15:07 | DRG 177 ==
LOC: ER 18:25 → 2ND 18:50
PROVIDERS: Internal Medicine Adolescent Medicine; Admitting Provider Emergency Medicine; Emergency Provider Emergency Medicine; PCP Internal Medicine Adolescent Medicine; Visit Provider Internal Medicine Adolescent Medicine
DX: U07.1 COVID-19 (principal); J12.82 Pneumonia due to coronavirus disease 2019; J96.01 Acute respiratory failure with hypoxia; J44.0 Chronic obstructive pulmonary disease with (acute) lower respiratory infection; N17.9 Acute kidney failure, unspecified; F17.210 Nicotine dependence, cigarettes, uncomplicated; E86.0 Dehydration
CPT/HCPCS: 36415; 71045; 71275; 80048; 80053; 81001; 82803; 82962; 84484; 85007; 85025; 93005; 94640; 94761; 96365; 96375; 97110; 97116; 97162; 97165; 97530; 99285; C9803; J1956; Q9967; U0003; U0005

== ENCOUNTER → 2021-11-15 14:06 | Outpatient (CLI) | payer MEDICARE, MEDICAID, SELFPAY | PROVIDERS: PCP Emergency Medicine; Visit Provider Emergency Medicine | DX: R06.02 Shortness of breath (principal); R94.31 Abnormal electrocardiogram [ECG] [EKG] | CPT/HCPCS: 93306 ==

== ENCOUNTER → 2021-12-05 06:24 | Outpatient (CLI) | payer MEDICARE, MEDICAID, SELFPAY ==
--- NOTE | 2021-12-05 06:26 | CA_ITS ---
APPROVED REPORT Exam: Pharmacologic Technologist: Sayda Benton, Ht: 5 ft 6 in Wt: 176 lbs BSA: 1.89 m2 HR: 61 bpm BP: 181/93 mmHg Medical History Medications: Aspirin,,,,, Pravastatin,,,,, Gabapentin,,,,, Allopurinol,,,,, Glimepiride,,,,, Zoloft,,,,, XaRELTO,,,,, Albuterol,,,,, Famotidine,,,,, Singulair,,,,, Cyclobenzaprine,,,,, Levofloxacin,,,,, Stress Test Details Test: LEXISCAN HR Resting HR: 61 bpm Max Heart Rate (APMHR): 148.697154 bpm Max HR Achieved: 107 bpm Target HR (85% APMHR): 125.986100 bpm % of APMHR: 72.30 Recovery HR: 74 bpm BP Resting BP: 181.0/93.0 mmHg Max BP: 181.0/93.0 mmHg Recovery BP: 172.0/84.0 mmHg ECG Resting ECG: NSR, rightward axis Clinical Exercise duration: 04:00 min Highest Stage Achieved: Stress ECG Conclusion Pretest Manual BP 170/84 Symptoms: Mild stomach discomfort. No CP. Arrhythmias/Ectopy: Occ PAC, Occ PVC. ST-T Changes: Mild ST-T changes in lead III. Conclusion: Unremarkable Lexiscan stress. Myoview images reported separately. Test Summary RECOVERY 04:09 . . . 172/ 84 . . Stage 1 . . . . . . . Cardiolite injected Stage 1 01:00 . . 81 . . . . Stage 2 01:00 . . 86 . . . . Stage 3 01:00 . . 81 . 154/ 84 . . Stage 4 01:00 . . 78 . 152/ 80 . Stop exercise at 04:00 RECOVERY 01:00 . . 87 . . . . RECOVERY 02:00 . . 80 . 176/ 84 . . RECOVERY 03:00 . . 75 . 172/ 84 . . RECOVERY 04:00 . . 69 . 172/ 84 . . RECOVERY 04:09 . . . 172/ 84 . . Electronically signed by : Rao Rosado MD 12/05/2021 18:56:15
--- NOTE | 2021-12-05 06:26 | NM_ITS ---
APPROVED REPORT Exam: Nuclear Stress Test Indication: Chest pain, SOB, HTN, DM, High cholesterol, Tobacco use, CHF Patient Location: Outpatient Stress Tech: Sayda Carrillo [place] Tech:Deanna Major, ARRT, RT (R)(N) Ht: 5 ft 6 in Wt: 175 lbs Bra Size: 38D HR: 61 bpm BP: 181/93 mmHg BSA: 1.89 m2 BMI: 28.2 History: Chest pain, SOB, HTN, DM, High cholesterol, Tobacco use, CHF Procedure: Patient received a 0.4 mg of intravenous Lexiscan, resting heart rate 61 bpm, resting blood pressure 181/93 mmHg, with Lexiscan maximum heart rate achived was 107 bpm which is Less than 85 % of the maximum predicted heart rate and blood pressure was 181/93 mmHg. With Lexiscan, patient denied any complaint of chest pain. Electrocardiogram Resting electrocardiogram shows sinus rhythm, with Lexiscan there is less than 1.[address] segment depression noted from the baseline EKG. The EKG portion of the Lexiscan is nondiagnostic. Cardiac Stress and Resting SPECT Images: Cardiac Stress and Resting SPECT images were obtained using technetium 99m Myoview 32.4 mCi stress and 10.68 mCi at rest. Patient unable to lay on stomach for prone images. Gated SPECT for analysis of segmental wall motion and calculation of the ejection fraction also done. Cardiac stress and resting SPECT images show uniform myocardial activity without segmental perfusion abnormality, computer derived ejection fraction is 55% with no regional wall motion abnormality, right ventricle is normal size and contractility. Conclusion: 1. The EKG portion of the Lexiscan is nondiagnostic. 2. No scintigraphic evidence of reversible ischemia seen, computer derived ejection fraction 55% with no regional wall motion abnormality, right ventricle is normal size and contractility. 3. Normal Lexiscan Myoview study. Electronically signed by : Rao Rosado MD 12/05/2021 18:59:42
--- NOTE | 2021-12-05 08:38 | HMH.ITSHM ---
Current Home Medications as stated by this patient Grace Key or account services representative. []LISINOPRIL LEVOLOXACIN GABAPENTIN DAPAGLIFLOZIN ALLOPURINOL SERTRALINE RIVAROXABAN PRAVASTATIN POTASSIUM ZOFRAN MONTELUKAST METOPROLOL GLIMEPIRIDE BREO FAMOTIDINE VITAMIN D2 CYCLOBENZAPRINE ASA ALBUTEROL
== END ==
PROVIDERS: PCP Emergency Medicine; Visit Provider Physician Assistant
DX: E78.5 Hyperlipidemia, unspecified (principal); I27.20 Pulmonary hypertension, unspecified; I34.0 Nonrheumatic mitral (valve) insufficiency; I50.9 Heart failure, unspecified; R07.9 Chest pain, unspecified; I11.0 Hypertensive heart disease with heart failure
CPT/HCPCS: 78452; 93017; A9502; J2785

== ENCOUNTER → 2022-01-29 11:39 | Outpatient (CLI) | payer MEDICARE, MEDICAID, SELFPAY ==
[2022-01-29 12:07] LABS: Basophils # 0.2 K/mm3 (0-0.2); Basophils % 1.9 % (0.1-2.0); Eosinophils # 0.5 K/mm3 (0.0-0.4); Eosinophils % 5.8 % (0.1-12.0); Hematocrit 42.9 % (37.0-47.0); Hemoglobin 13.8 g/dL (12.2-16.2); Lymphocytes # 2.1 K/mm3 (0.7-4.5); Lymphocytes % 24.4 % (10-50); Mean Corpuscular HGB Conc 32.1 g/dL (31.8-35.4); Mean Corpuscular Hemoglobin 30.5 pg (27.0-31.2); Mean Corpuscular Volume 95.1 fl (81-99); Mean Platelet Volume 9.1 fl (7.4-10.4); Monocytes # 0.3 K/mm3 (0.1-1.0); Monocytes % 3.8 % (1.7-9.3); Neutrophils # 5.6 K/mm3 (1.8-7.8); Neutrophils % 64.2 % (37.0-80.0); Platelet Count 188 K/mm3 (142-424); Red Blood Count 4.51 M/mm3 (4.20-5.40); Red Cell Distribution Width 15.6 % (11.5-17.5); White Blood Count 8.6 K/mm3 (4.8-10.8)
[2022-01-29 12:41] LABS: Chloride 108 mmol/L (98-107); Potassium 4.8 mmoL/L (3.5-5.1); Sodium 141 mmol/L (136-145)
[2022-01-29 12:43] LABS: Bilirubin,Unconjugated 0.2 mg/dL (0.0-1.1); Blood Urea Nitrogen 16 mg/dl (7-17); Estimated Glomerular Filt Rate 49 ml/min (>60); GFR (African American) 59 ML/MIN (>60)
[2022-01-29 12:44] LABS: Alanine Aminotransferase 19 U/L (12-78); Albumin Level 3.7 g/dl (3.5-5.0); Alkaline Phosphatase 95 U/L (38-126); Anion Gap 7.8 mEq/L (5-15); Aspartate Amino Transferase 23 U/L (14-36); Bilirubin,Direct 0.1 mg/dl (0.0-0.4); Bilirubin,Indirect 0.3 mg/dL (0.0-0.9); Bilirubin,Total 0.4 mg/dl (0.2-1.3); Calcium 9.4 mg/dl (8.4-10.2); Carbon Dioxide 30 mmol/L (22.0-30.0); Cholesterol 137 mg/dl (140-200); Glucose 87 mg/dl (74-100); Magnesium 1.9 mg/dl (1.6-2.3); Total Protein,Serum 6.4 g/dl (6.3-8.2); Triglycerides 115 mg/dl (30-150); VLDL Cholesterol 23 mg/dL (0-40)
[2022-01-29 12:45] LABS: Chol/HDL Ratio 2.7 (1-3.5); HDL Cholesterol 51 mg/dl (40-60)
[2022-01-29 12:55] LABS: Direct LDL Cholesterol 63.96 mg/dL (100-129)
[2022-01-29 13:01] LABS: Free T4 (Free Thyroxine) 1.11 ng/dl (0.78-2.19)
[2022-01-29 13:15] LABS: Thyroid Stimulating Hormone 2.22 uIU/mL (0.465-4.68)
== END ==
PROVIDERS: Visit Provider Nurse Practitioner
DX: E78.5 Hyperlipidemia, unspecified (principal); I10 Essential (primary) hypertension; I27.20 Pulmonary hypertension, unspecified; I34.0 Nonrheumatic mitral (valve) insufficiency; I50.9 Heart failure, unspecified; R07.9 Chest pain, unspecified
CPT/HCPCS: 36415; 80048; 80061; 80076; 83735; 84439; 84443; 85025

== ENCOUNTER → 2022-02-02 13:41 | Outpatient (POV) | payer MEDICARE, MEDICAID, SELFPAY | PROVIDERS: Visit Provider Internal Medicine Nephrology | DX: Z00.00 Encounter for general adult medical examination without abnormal findings (principal) ==

== ENCOUNTER 2022-03-05 17:27 | Emergency (ER) | payer MEDICARE, MEDICAID, SELFPAY ==
[2022-03-05 17:29] VITALS: BP 168/85; PULSE 82; RESP 18; TEMP 37.1; O2SAT 93; BMI 30.7
--- NOTE | 2022-03-05 17:41 | HMH.EDLOEX ---
ED Disposition Clinical Impression: Strain of adductor muscle of thigh, Dermatitis Disposition: Home, Self-Care Condition on Discharge: Fair Instructions: Muscle Strain, Contact Dermatitis, DI for Contact Dermatitis Additional Instructions: Follow-up with your primary care doctor in about 3 to 4 days to have the skin on your genitals checked again. Meanwhile, I would recommend that you apply Desitin cream twice a day. I also recommend that you discuss the possibility for physical therapy for a muscle strain. Turn to the emergency department if you feel worse in any way. - Critical Care Critical Care Time: No Attestation: On , the high probability of a clinically significant, sudden or life threatening deterioration of the following system(s) required my full and direct attention, intervention and personal management. The time I documented below is in addition to time spent performing reported procedures but includes the following listed in this critical care notation. Medical Decision Making - Medical Records Medical records reviewed: Yes: I reviewed the patient's medical records. - [place] Inquiry Pt receiving controlled substance: Yes [place] was queried for this patient: Yes Risks and benefits of using a controlled substance: were discussed with pt by me Vital Signs: 03/05/22 17:29 Temperature 98.7 F Temperature Source Oral Pulse Rate [Left Radial] 82 Respiratory Rate 18 Blood Pressure [Right Arm] 168/85 H Blood Pressure Mean [Right Arm] 112 Blood Pressure Source [Right Arm] Automatic Cuff Blood Pressure Position [Right Arm] Sitting 02 Sat by Pulse Oximetry 93 L Oxygen Delivery Method Room Air Orders (Tests/Meds): ED MEDICATIONS Discontinued Medications Generic Name Dose Route Start Last Admin Trade Name Freq PRN Reason Stop Dose Admin Tramadol HCl 50 mg 03/05/22 17:46 03/05/22 17:51 Tramadol 50mg Tablet PO 03/05/22 17:47 50 mg ONCE ONE Administration Medical Decision Narrative: The patient's physical exam is consistent with an adductor groin strain. There is no evidence of ischemic leg or infectious process. The patient is allergic to Tylenol. Given 1 tablet of Ultram here and will be prescribed 15 tablets of Ultram. Lower Extremity Injury HPI - General Stated Complaint: pAIN LEFT LEG CAN'T WALK Time Seen by Provider: 03/05/22 17:41 Mode of Arrival: Family Vehicle Limitations: No Limitations - History of Present Illness HPI Narrative: The patient complains of medial left sided groin pain for the last 2 weeks. She denies any known injuries. - Related Data Home Medications Medication Instructions Recorded Confirmed Albuterol Sulfate [Proair 2 puffs IH Q4HP PRN 10/17/21 01/29/22 Respiclick] Aspirin [Aspirin 81mg chewable 81 mg PO DAILY 10/17/21 01/29/22 tab] Cyclobenzaprine HCl 5 mg PO TIDP PRN 10/17/21 01/29/22 [Cyclobenzaprine 5mg Tab*] Glimepiride 1 mg PO DAILY 10/17/21 01/29/22 Guaifenesin/Dextromethorphan 1 each PO DAILY 10/17/21 01/29/22 [Mucus Relief Dm Cough Tablet] Montelukast Sodium 10 mg PO PM 10/17/21 01/29/22 Ondansetron [Zofran 4mg ODT] 4 mg PO TIDP PRN 10/17/21 01/29/22 Potassium Chloride 10 meq PO DAILY 10/17/21 01/29/22 Pravastatin Sodium 80 mg PO HS 10/17/21 01/29/22 Rivaroxaban [Xarelto 20mg Tablet*] 20 mg PO QPMWITHMEAL 10/17/21 01/29/22 Sertraline HCl 50 mg PO DAILY 10/17/21 01/29/22 allopurinoL [Allopurinol 100mg 50 mg PO DAILY 10/17/21 01/29/22 tablet] Ergocalciferol (Vitamin D2) 50,000 unit PO WEEKLY 10/18/21 01/29/22 [Vitamin D2] Fluticasone/Vilanterol [Breo 1 puff IH DAILY 10/18/21 01/29/22 Ellipta 100-25 Mcg INH] Previous Rx's Medication Instructions Recorded Famotidine [Pepcid 20mg Tablet] 20 mg PO DAILY tab 10/20/21 levoFLOXacin [Levofloxacin 750MG 750 mg PO DAILY 3 Days #10 tab 10/20/21 Tablet*] dapagliflozin 10 mg tablet 10 mg PO DAILY #30 tab 11/28/21 gabapentin 300 mg capsule 300
[2022-03-05 18:00] VITALS: BP 156/70; PULSE 61; O2SAT 93
[2022-03-05 18:22] VITALS: BP 156/70; PULSE 61; RESP 18; TEMP 37.1; O2SAT 93
== END 2022-03-05 18:25 | disposition home or self-care (01) ==
LOC: ER 17:47
PROVIDERS: Emergency Provider Emergency Medicine
DX: L30.9 Dermatitis, unspecified (principal); S76.212A Strain of adductor muscle, fascia and tendon of left thigh, initial encounter; Z88.6 Allergy status to analgesic agent; Z79.82 Long term (current) use of aspirin; Z79.899 Other long term (current) drug therapy; J44.9 Chronic obstructive pulmonary disease, unspecified; I73.9 Peripheral vascular disease, unspecified; Z72.0 Tobacco use; Z79.01 Long term (current) use of anticoagulants
CPT/HCPCS: 99282

== ENCOUNTER 2022-03-10 12:37 | Inpatient (IN) | payer MEDICARE, MEDICAID, SELFPAY ==
[2022-03-10 12:31] VITALS: BP 122/80; PULSE 75; RESP 15; TEMP 37.2; O2SAT 90; BMI 27.4
[2022-03-10 12:41] VITALS: BP 122/80; PULSE 74; O2SAT 89
--- NOTE | 2022-03-10 12:50 | XR_ITS ---
PROCEDURE INFORMATION: Exam: XR Left Hip Exam date and time: 03/10/2022 1:10 PM Age: 71 years old Clinical indication: Injury or trauma; Fall; Blunt trauma (contusions or hematomas); Left; Hip; Injury date: 03/10/22; Additional info: Rolled out of bed TECHNIQUE: Imaging protocol: Radiologic exam of the Left hip. Views: 2 or 3 views hip with pelvis when performed. COMPARISON: No relevant prior studies available. FINDINGS: Bones/joints: Generalized osteopenia. Nondisplaced fracture left superior pubic ramus. Could not entirely exclude extension into the region of the left acetabulum. Soft tissues: Unremarkable. IMPRESSION: 1. Nondisplaced fracture left superior pubic ramus. Possible extension into the region of the left acetabulum. Consider follow-up with computerized tomography if appropriate. 2. Osteopenia.
--- NOTE | 2022-03-10 13:10 | HMH.EDGENADL ---
ED Disposition Clinical Impression: Pelvic fracture Qualifiers: Encounter type: initial encounter Pelvic bone location: pubis Sublocation of pubis: unspecified portion of pubis Fracture type: closed Laterality: left Qualified Code(s): S32.502A - Unspecified fracture of left pubis, initial encounter for closed fracture Disposition: Admitted As Inpatient Condition on Discharge: [facility] - Critical Care Critical Care Time: No Attestation: On , the high probability of a clinically significant, sudden or life threatening deterioration of the following system(s) required my full and direct attention, intervention and personal management. The time I documented below is in addition to time spent performing reported procedures but includes the following listed in this critical care notation. Medical Decision Making - Medical Records Medical records reviewed: Yes: I reviewed the patient's medical records. MR Comment: Reviewed emergency department note from 03/05/2022. Patient is seen in this emergency department for complaints of pain in her left groin area. Diagnosed with a muscle strain. Prescribed tramadol. No imaging performed at that time. - Chester Inquiry Pt receiving controlled substance: Yes Chester was queried for this patient: Yes Risks and benefits of using a controlled substance: were not discussed with pt by me Vital Signs: 03/10/22 12:31 03/10/22 12:41 03/10/22 14:37 Temperature 98.9 F Temperature Source Oral Pulse Rate 74 68 Pulse Rate [Right Radial] 75 Respiratory Rate 15 Blood Pressure 122/80 147/83 H Blood Pressure [Right Arm] 122/80 Blood Pressure Mean 94 102 Blood Pressure Mean [Right Arm] 94 Blood Pressure Source [Right Arm] Automatic Cuff Blood Pressure Position [Right Arm] Sitting 02 Sat by Pulse Oximetry 90 L 89 L 94 L Oxygen Delivery Method Room Air Oxygen Flow Rate (LPM) 2 - Lab Data Lab Results 03/10/22 12:58: Urine Color Yellow, Urine Appearance Clear, Urine pH 6.0, Ur Specific [place] 1.020, Urine Protein Negative, Urine Glucose (UA) 2+, Urine Ketones Negative, Urine Blood Trace-i, Urine Nitrate Negative, Urine Bilirubin Negative, Urine Urobilinogen 0.2, Ur Leukocyte Esterase Negative, Urine RBC Occasional, Urine WBC 5-10, Ur Squamous Epith Cells 10-20, Urine Bacteria 2+, Urine Mucus Trace 03/10/22 13:49: SARS-CoV-2 (PCR) Not detected, Influenza A Untype (PCR) Not detected, Influenza Type B (PCR) Not detected 03/10/22 13:58: WBC 9.9, RBC 4.88, Hgb 13.6, Hct 45.2, MCV 92.6, MCH 27.8, MCHC 30.0 L, RDW 15.6, Plt Count 191, MPV 10.0, Neut % (Auto) 65.1, Lymph % (Auto) 23.3, [place] % (Auto) 6.2, Eos % (Auto) 3.5, Baso % (Auto) 2.0, Neut # (Auto) 6.4, Lymph # (Auto) 2.3, [place] # (Auto) 0.6, Eos # (Auto) 0.4, Baso # (Auto) 0.2 03/10/22 13:58: Sodium 138, Potassium 4.4, Chloride 106, Carbon Dioxide 30, Anion Gap 6.4, BUN 18 H, Creatinine 1.30 H, Estimated Creat Clear 48, Estimated GFR 40 L, Est GFR ( Amer) 49 L, Glucose 93, Calcium 9.5 03/10/22 15:08: Specimen Source Right radial, O2 % 2 lnc, ABG pH 7.33 L, ABG pCO2 48.5 H, ABG pO2 63.3 L, ABG HCO3 25.1, ABG Total CO2 26.5, ABG O2 Saturation 90, ABG Base Excess -0.9, Valeriy Test Acceptable Result diagrams: 03/10/22 13:58 03/10/22 13:58 Orders (Tests/Meds): ED MEDICATIONS Discontinued Medications Generic Name Dose Route Start Last Admin Trade Name Bill PRN Reason Stop Dose Admin Morphine Sulfate 4 mg 03/10/22 13:43 03/10/22 14:28 Morphine 4mg/Ml Syringe IV 03/10/22 13:44 4 mg ONCE ONE Administration Ondansetron HCl 4 mg 03/10/22 13:43 03/10/22 14:28 Ondansetron 4mg/2ml Vial IV 03/10/22 13:44 4 mg ONCE ONE Administration ORDERS Category Date Time Status Urine Culture Stat Micro 03/10/22 12:58 Received - Radiology Data #1 Image(s): Hip Image Reviewed: Yes I reviewed the patient's radiology image, Yes I have reviewed radiologist's interpretation PROCEDURE INFORMATION: Exam:
[2022-03-10 13:37] LABS: Microscopic, Urine URINE MICROSCOPIC (MICROSCOPIC)
[2022-03-10 13:41] LABS: Appearance,Urine CLEAR (Clear); Bilirubin,Urine Negative (Negative); Blood, Urine TRACE-I (Negative); Color,Urine YELLOW (Yellow); Glucose,Urine (UA) 2+ (Negative); Ketones,Urine Negative (Negative); Leukocyte Esterase,Urine Negative (Negative); Nitrate,Urine Negative (Negative); Protein,Urine Negative (Negative); Urobilinogen,Urine 0.2 EU/dl (0.2)
--- NOTE | 2022-03-10 13:42 | CT_ITS ---
PROCEDURE INFORMATION: Exam: CT Left Lower Extremity Without Contrast, Hip Exam date and time: 03/10/2022 2:01 PM Age: 71 years old Clinical indication: Pain; Hip; Left; Additional info: FX pubic ramus, poss ext into acetabulum TECHNIQUE: Imaging protocol: CT of the Left lower extremity without contrast was performed. Exam focused on the hip. Radiation optimization: All CT scans at this facility use at least one of these dose optimization techniques: automated exposure control; mA and/or kV adjustment per patient size (includes targeted exams where dose is matched to clinical indication); or iterative reconstruction. COMPARISON: CR XR HIP LT 2-3V W/PELVIS 03/10/2022 1:10 PM FINDINGS: Bones/joints: Nondisplaced fracture of the superior pubic ramus. No evidence of extension of the fracture plane into the acetabulum. An extremely subtle fracture of the inferior pubic ramus is also demonstrated (series 4, image number 81). Incomplete visualization of L4 compression fracture deformity. Age indeterminate. Soft tissues: Normal. IMPRESSION: 1. Nondisplaced fracture left superior pubic ramus. No evidence of extension into the acetabulum. 2. Nondisplaced subtle fracture inferior pubic ramus. 3. Incomplete visualization of L4 compression fracture deformity. Age indeterminate.
--- NOTE | 2022-03-10 13:42 | CT_ITS ---
PROCEDURE INFORMATION: Exam: CT Pelvis Without Contrast; Skeletal Exam date and time: 03/10/2022 1:59 PM Age: 71 years old Clinical indication: Hip pain; Left hip; Additional info: FX pubic ramus, poss ext into acetabulum TECHNIQUE: Imaging protocol: Computed tomography of the pelvis without contrast. Exam focused on the skeleton. Radiation optimization: All CT scans at this facility use at least one of these dose optimization techniques: automated exposure control; mA and/or kV adjustment per patient size (includes targeted exams where dose is matched to clinical indication); or iterative reconstruction. COMPARISON: CR XR HIP LT 2-3V W/PELVIS 03/10/2022 1:10 PM, CT left hip 03/10/2022 2:01 p.m. FINDINGS: Stomach and bowel: Colonic diverticulosis involving the sigmoid colon. No evidence of diverticulitis. Bones/joints: Incomplete visualization of L4 compression fracture deformity again demonstrated. Nondisplaced fracture left superior and inferior pubic ramus. Mild osteopenia. Soft tissues: Small bilateral fat filled inguinal hernias. IMPRESSION: 1. Nondisplaced fractures left superior and inferior pubic rami. 2. Incomplete visualization L4 compression fracture deformity again demonstrated. 3. Osteopenia.
--- NOTE | 2022-03-10 13:44 | XR_ITS ---
PROCEDURE INFORMATION: Exam: XR Chest Exam date and time: 03/10/2022 2:07 PM Age: 71 years old Clinical indication: Screening exam; Other screening; Additional info: FX pubic ramus, poss ext into acetabulum. Screening TECHNIQUE: Imaging protocol: Radiologic exam of the chest. Views: 4 or more views. COMPARISON: CR XR CHEST PORTABLE 10/17/2021 2:45 PM FINDINGS: Lungs: See Heart/Mediastinum finding. Pleural spaces: Unremarkable. No pleural effusion. No pneumothorax. Heart/Mediastinum: Mild prominence of the main pulmonary arteries. Clinically correlate regarding pulmonary arterial hypertension. Vasculature: Ectasia of the aortic arch. Atherosclerotic calcification involving the arch again demonstrated. Bones/joints: Unremarkable. IMPRESSION: No evidence of acute cardiopulmonary disease.
[2022-03-10 13:56] LABS: Coronavirus 19, PCR Not Detected (NotDetected); Influenza A, PCR Not Detected (NotDetected); Influenza B, PCR Not Detected (NotDetected)
[2022-03-10 13:56] LABS: Bacteria,Urine 2+ /lpf; Mucus,Urine Trace /lpf; RBC,Urine Occasional #/hpf (0-3)
--- NOTE | 2022-03-10 14:01 | PC.NURSE ---
Pt to rad
[2022-03-10 14:15] LABS: Chloride 106 mmol/L (98-107); Sodium 138 mmol/L (136-145)
[2022-03-10 14:16] LABS: Potassium 4.4 mmoL/L (3.5-5.1)
[2022-03-10 14:18] LABS: Blood Urea Nitrogen 18 mg/dl (7-17); Creatinine Clearance Estimated 48 mL/min (50-200); Estimated Glomerular Filt Rate 40 ml/min (>60); GFR (African American) 49 ML/MIN (>60)
[2022-03-10 14:19] LABS: Anion Gap 6.4 mEq/L (5-15); Calcium 9.5 mg/dl (8.4-10.2); Carbon Dioxide 30 mmol/L (22.0-30.0); Glucose 93 mg/dl (74-100)
[2022-03-10 14:33] LABS: Basophils # 0.2 K/mm3 (0-0.2); Eosinophils # 0.4 K/mm3 (0.0-0.4); Eosinophils % 3.5 % (0.1-12.0); Hematocrit 45.2 % (37.0-47.0); Hemoglobin 13.6 g/dL (12.2-16.2); Lymphocytes # 2.3 K/mm3 (0.7-4.5); Lymphocytes % 23.3 % (10-50); Mean Corpuscular Hemoglobin 27.8 pg (27.0-31.2); Mean Corpuscular Volume 92.6 fl (81-99); Monocytes # 0.6 K/mm3 (0.1-1.0); Monocytes % 6.2 % (1.7-9.3); Neutrophils # 6.4 K/mm3 (1.8-7.8); Neutrophils % 65.1 % (37.0-80.0); Platelet Count 191 K/mm3 (142-424); Red Blood Count 4.88 M/mm3 (4.20-5.40); Red Cell Distribution Width 15.6 % (11.5-17.5); White Blood Count 9.9 K/mm3 (4.8-10.8)
--- NOTE | 2022-03-10 14:34 | PC.NURSE ---
PT now on 2L O2
[2022-03-10 14:37] VITALS: BP 147/83; PULSE 68; O2SAT 94
--- NOTE | 2022-03-10 14:42 | PC.NURSE ---
Update on pt condition given to Alice at [facility]
--- NOTE | 2022-03-10 15:00 | PC.NURSE ---
Pt's daughter arrived, whom states that she is also her POA, and requested to speak with the manager of warehouse regarding dissatisfaction with pt's last ED visit. heavy equipment supervisor notified and on way to speak with person.
[2022-03-10 15:49] VITALS: BMI 30.4
[2022-03-10 16:09] LABS: ABG Base Excess -0.9 mmol/L (-2.4-2.3); ABG HCO3 25.1 mmhg (22.0-26.0); ABG Oxygen Saturation 90 % (90-100); ABG PCO2 48.5 mmhg (35.0-45.0); ABG PH 7.33 mmol/L (7.35-7.45); ABG PO2 63.3 mmhg (80-100); ABG TCO2 26.5 mmhg (23-27)
[2022-03-10 16:10] LABS: Allen's Test Acceptable; Oxygen 2 LNC %; Source Right Radial
--- NOTE | 2022-03-10 16:20 | PC.NURSE ---
Received a call from ED at 1455 that pt's daughter was requesting to speak to the greenhouse grower. I have been down to pt's room 3 times attempting to locate her daughter without success. I talked with the patient and she denied any complaints but did state her daughter wanted to talk to me. Pt is to be admitted so I will check back to see it pt's daughter has came back.
--- NOTE | 2022-03-10 16:29 | PC.NURSE ---
report called to ravinder borrego
--- NOTE | 2022-03-10 16:36 | PC.NURSE ---
PT ASSIGNMENT HAS BEEN CHANGED. REPORT GIVEN TO Luisa DAO RN AT THIS TIME WHO WILL ASSUME CARE OF THIS PT WHEN THEY ARRIVE TO FLOOR. PT HAS NOT ARRIVED FROM ER AT THIS TIME. ER NURSE Antelmo GRIFFIN SAID SHE WOULD CALL WHEN ER MD WAS FINISHED PUTTING IN ORDERS.
--- NOTE | 2022-03-10 17:44 | PC.NURSE ---
Spoke with Rafia Mart in the ER who stated Dr. Zhong said, Dr. Snider does not have to be contacted until the AM.
--- NOTE | 2022-03-10 17:50 | PC.NURSE ---
Pt going to room 211 [id number]
[2022-03-10 17:56] VITALS: BP 135/81; PULSE 70; RESP 17; TEMP 37.2; O2SAT 95
--- NOTE | 2022-03-10 17:57 | PC.NURSE ---
Pt arrived to the floor at this time
[2022-03-10 18:55] VITALS: BP 144/84; PULSE 68; RESP 20; TEMP 36.3; O2SAT 93
[2022-03-10 20:00] VITALS: BP 136/93; PULSE 69; RESP 16; TEMP 36.9; O2SAT 94
[2022-03-10 21:40] LABS: POC Glucose,Bedside 122 (70-110)
[2022-03-11 04:00] VITALS: BP 156/93; PULSE 83; RESP 18; TEMP 37.1; O2SAT 93
--- NOTE | 2022-03-11 04:59 | PC.NURSE ---
Addendum entered by Yue Howard RN 03/11/22 06:18: pt on o2 at 2L pnc, pt noted with bilateral wheezing, o2 sats 93-94% on o2 at 2L PNC Original Note: pt has rested well through the night, no complaints of pain, pt with purewick in place, bilateral pedal pulses and cap refill< 3 sec noted to BLE, no changes from previous assessment
[2022-03-11 05:00] VITALS: BMI 29.9
[2022-03-11 08:00] VITALS: BP 154/82; PULSE 70; RESP 16; TEMP 36.8; O2SAT 93
--- NOTE | 2022-03-11 08:04 | PC.NURSE ---
DR. Snider notified of consult.
--- NOTE | 2022-03-11 08:19 | HMH.ORTHOCON ---
*Admission Date: 03/10/22 *Reason for consult:: Left SPR/IPR fracture *History of present illness: 71-year-old female with complaints of left-sided groin pain for 2 months. She denies antecedent trauma. She is also complaining of back pain. She was admitted overnight after CT scan demonstrated left superior/inferior pubic ramus fracture. [facility] History Medical History: Reports:: Congestive Heart Failure, Chronic Obstructive Pulmonary Disease (COPD), Deep Vein Thrombosis, Diabetes Mellitus Type 2, Hyperlipidemia, Hypertension *Have you ever received a pneumonia vaccine?: Yes *Have you received a flu vaccine this season?: Yes - *Social History Smoking Status: Current every day smoker Tobacco Type: cigarettes # Packs/Day (cigarettes): 1 Alcohol Intake: never *Occupational Status:: retired Housing: assisted living facility Household Members: other *Travel in the last 8 weeks: None Family Hx:: Unable to obtain Review of Systems - *Cardiovascular Denies chest pain - *Respiratory Denies shortness of breath - *Gastrointestinal Denies abdominal pain - *Genitourinary Reports pelvic pain - *Musculoskeletal Reports back pain - *Neurologic Denies abnormal walking, Denies localized weakness, Denies headache(s), Denies weakness Meds Home Medications Medication Instructions Recorded Confirmed Type Albuterol Sulfate [Proair 2 puffs IH Q4HP PRN 10/17/21 03/10/22 History Respiclick] Aspirin [Aspirin 81mg chewable 81 mg PO DAILY 10/17/21 03/10/22 History tab] Cyclobenzaprine HCl 5 mg PO TIDP PRN 10/17/21 03/10/22 History [Cyclobenzaprine 5mg Tab*] Glimepiride 1 mg PO DAILY 10/17/21 03/10/22 History Guaifenesin/Dextromethorphan 1 each PO DAILY 10/17/21 03/10/22 History [Mucus Relief Dm Cough Tablet] Montelukast Sodium 10 mg PO PM 10/17/21 03/10/22 History Potassium Chloride 10 meq PO DAILY 10/17/21 03/10/22 History Pravastatin Sodium 80 mg PO HS 10/17/21 03/10/22 History Rivaroxaban [Xarelto 20mg Tablet*] 20 mg PO QPMWITHMEAL 10/17/21 03/10/22 History Sertraline HCl 50 mg PO DAILY 10/17/21 03/10/22 History allopurinoL [Allopurinol 100mg 50 mg PO DAILY 10/17/21 03/10/22 History tablet] Ergocalciferol (Vitamin D2) 50,000 unit PO WEEKLY 10/18/21 03/10/22 History [Vitamin D2] Fluticasone/Vilanterol [Breo 1 puff IH DAILY 10/18/21 03/10/22 History Ellipta 100-25 Mcg INH] gabapentin 300 mg capsule 300 mg PO TID #90 cap 12/20/21 03/10/22 Rx Dapagliflozin Propanediol [Farxiga] 10 mg PO DAILY 03/10/22 03/10/22 History Famotidine [Pepcid 20mg Tablet] 20 mg PO DAILY 03/10/22 03/10/22 History Metoprolol Succinate [Metoprolol 50 mg PO DAILY 03/10/22 03/10/22 History Succinate 50mg Tablet*] lisinopriL [Lisinopril 30mg Tablet] 30 mg PO DAILY 03/10/22 03/10/22 History Allergies Allergy/AdvReac Type Severity Reaction Status Date / Time No Known Allergies Allergy Verified 01/29/22 11:14 Exam Vital signs and Labs for Last 24 Hours: Temp Pulse Resp BP Pulse Ox 98.8 F 83 18 156/93 H 93 L 03/11/22 04:00 03/11/22 04:00 03/11/22 04:00 03/11/22 04:00 03/11/22 04:00 Laboratory Results - last 24 hr 03/10/22 12:58: Urine Color Yellow, Urine Appearance Clear, Urine pH 6.0, Ur Specific [place] 1.020, Urine Protein Negative, Urine Glucose (UA) 2+, Urine Ketones Negative, Urine Blood Trace-i, Urine Nitrate Negative, Urine Bilirubin Negative, Urine Urobilinogen 0.2, Ur Leukocyte Esterase Negative, Urine RBC Occasional, Urine WBC 5-10, Ur Squamous Epith Cells 10-20, Urine Bacteria 2+, Urine Mucus Trace 03/10/22 13:49: SARS-CoV-2 (PCR) Not detected, Influenza A Untype (PCR) Not detected, Influenza Type B (PCR) Not detected 03/10/22 13:58: WBC 9.9, RBC 4.88, Hgb 13.6, Hct 45.2, MCV 92.6, MCH 27.8, MCHC 30.0 L, RDW 15.6, Plt Count 191, MPV 10.0, Neut % (Auto) 65.1, Lymph % (Auto) 23.3, Thayer % (Auto) 6.2, Eos % (Auto) 3.5, Baso % (Auto) 2.0, Neut # (Auto) 6.4, Lymph # (Auto) 2.3, Thayer # (Auto) 0.6, Eos #
--- NOTE | 2022-03-11 08:30 | HMH.ITSTN ---
Spoke to patients nurse Cathy. patient also has a pubic rami fracture- unable to stand or transfer, she said Tylor wants done at noon today so we have lifting help available. Will bring patient down at noon
--- NOTE | 2022-03-11 09:40 | HMH.PHAVTE ---
[facility] Pharmacy VTE Monitoring - Patient Demographics Admission date: 03/10/22 Report Date: 03/11/22 Time: 09:40 Allergies/Adverse Reactions: Patient Allergies No Known Allergies Allergy (Verified 01/29/22 11:14) Height: 1.68 m Weight: 84.55 kg Patient Problems: Current Active Problems Pelvic fracture (Acute) Fracture of lumbar spine (Acute) - VTE Risk Labs: VTE Related Lab Results Hgb 13.6 g/dL (12.2-16.2) 03/10/22 13:58 Hct 45.2 % (37.0-47.0) 03/10/22 13:58 Plt Count 191 K/mm3 (142-424) 03/10/22 13:58 BUN 18 mg/dl (7-17) H 03/10/22 13:58 Creatinine 1.30 mg/dl (0.52-1.04) H 03/10/22 13:58 Estimated Creat Clear 48 mL/min (50-200) 03/10/22 13:58 Was VTE Risk Assessment Performed: Yes VTE Score: 4 VTE Risk Level: Low Risk - Prophylaxis VTE Prophylaxis Ordered?: Yes Types of VTE Prophylaxis: TEDS Knee High, Pharmacological Location of Applied Device: Bilateral Lower Extremeties Pharmacologic Type: Other (XARELTO)
--- NOTE | 2022-03-11 09:44 | HMH.PHAINT ---
MEDICATION RECONCILIATION COMPLETED ON PATIENT USING EXTERNAL FILL HISTORY FROM PHARMACY. -TIMMY OROSCO, JESIKAD
--- NOTE | 2022-03-11 10:59 | HMH.HP ---
*Admission Date: 03/10/22 *Chief complaint: fall *History of present illness: this patient presented to ed states that she rolled out of bed this AM. Denies any new pain from fall. States that she has chronic left groin pain r/t a pulled muscle. Pt states that she has had some burning with urination x1 month. Patient is brought in by ambulance from [facility]. Complains of pain in her left groin/inguinal area. She says it has been present for 2 months. Pain worsens when she moves her left lower extremity at the hip. States that she has been able to ambulate without difficulty. She says that there was no inciting fall or trauma. However, she says she rolled out of bed today and could not get back up into bed and therefore EMS was called. She denies any other new injuries. Denies head or neck injury. Denies any injury to abdomen or back. She says she otherwise feels well except that she has burning dysuria for 1 month. pt was unable to ambulate and admitted for eval by ortho and treatment [facility] History I have reviewed the patient's past medical history: Yes Medical History: Reports:: Congestive Heart Failure, Chronic Obstructive Pulmonary Disease (COPD), Deep Vein Thrombosis, Diabetes Mellitus Type 2, Hyperlipidemia, Hypertension *Have you ever received a pneumonia vaccine?: Yes *Have you received a flu vaccine this season?: Yes - *Social History Smoking Status: Current every day smoker Tobacco Type: cigarettes # Packs/Day (cigarettes): 1 Alcohol Intake: never *Occupational Status:: retired Housing: assisted living facility Household Members: other *Travel in the last 8 weeks: None Family Hx:: Unable to obtain Review of Systems - Review of Systems Review of systems:: pertinent systems reviewed and negative unless documented below - Constitutional Denies fever(s) - Eyes Denies change in vision - ENT Denies sore throat - *Cardiovascular Denies chest pain - *Respiratory Denies cough - *Gastrointestinal Denies abdominal pain - *Genitourinary Reports pelvic pain, Reports urinary urgency, Denies blood in urine - *Musculoskeletal Denies joint pain, Denies neck pain - Integumentary/Breasts Denies rash - *Neurologic Denies abnormal walking, Denies localized weakness, Denies headache(s), Denies weakness - Psychiatric Reports anxiety Meds Home Medications Medication Instructions Recorded Confirmed Type Albuterol Sulfate [Proair 2 puffs IH Q4HP PRN 10/17/21 03/10/22 History Respiclick] Aspirin [Aspirin 81mg chewable 81 mg PO DAILY 10/17/21 03/10/22 History tab] Cyclobenzaprine HCl 5 mg PO TIDP PRN 10/17/21 03/10/22 History [Cyclobenzaprine 5mg Tab*] Glimepiride 1 mg PO DAILY 10/17/21 03/10/22 History Guaifenesin/Dextromethorphan 1 each PO DAILY 10/17/21 03/10/22 History [Mucus Relief Dm Cough Tablet] Montelukast Sodium 10 mg PO PM 10/17/21 03/10/22 History Potassium Chloride 10 meq PO DAILY 10/17/21 03/10/22 History Pravastatin Sodium 80 mg PO HS 10/17/21 03/10/22 History Rivaroxaban [Xarelto 20mg Tablet*] 20 mg PO QPMWITHMEAL 10/17/21 03/10/22 History Sertraline HCl 50 mg PO DAILY 10/17/21 03/10/22 History allopurinoL [Allopurinol 100mg 50 mg PO DAILY 10/17/21 03/10/22 History tablet] Ergocalciferol (Vitamin D2) 50,000 unit PO WEEKLY 10/18/21 03/10/22 History [Vitamin D2] Fluticasone/Vilanterol [Breo 1 puff IH DAILY 10/18/21 03/10/22 History Ellipta 100-25 Mcg INH] gabapentin 300 mg capsule 300 mg PO TID #90 cap 12/20/21 03/10/22 Rx Dapagliflozin Propanediol [Farxiga] 10 mg PO DAILY 03/10/22 03/10/22 History Famotidine [Pepcid 20mg Tablet] 20 mg PO DAILY 03/10/22 03/10/22 History Metoprolol Succinate [Metoprolol 50 mg PO DAILY 03/10/22 03/10/22 History Succinate 50mg Tablet*] lisinopriL [Lisinopril 30mg Tablet] 30 mg PO DAILY 03/10/22 03/10/22 History Allergies Allergy/AdvReac Type Severity Reaction Status Date / Time No Known Allergies Allergy
[2022-03-11 12:00] VITALS: BP 146/77; PULSE 114; RESP 16; TEMP 36.8; O2SAT 95
--- NOTE | 2022-03-11 12:30 | HMH.PTEV ---
Physical Therapy Evaluation Rehab PT IP Evaluation Start: 03/10/22 16:31 Freq: .once Status: Active Protocol: Document 03/11/22 12:23 PHORNE (Rec: 03/11/22 12:30 PHORNE [id number]) Subjective/History History History 71 yowf adm to [facility] after fall out of bed at home. Pt presents with L sup/inf pubic rami fxs (possibly chronic as she has suffered inguinal pain after previous admission beginning ~ 2 mos ago) and L4 compression fx. Ortho unsure if comp fx is acute or chronic and therefore treating as acute. Pt reports she lives with a roomate, no step to enter the home and she uses a RW for all mobility. She was independent with all ADLs prior to adm. Currently MD orders are to protect pt spine with any mobility, but she does not have LSO at this time and would requires one prior to OOB activity to maintain this protection. Subjective Subjective Pt reports pain in L ingunial area and low back with any movement. She was sleeping upon entering the room, easily aroused, and agrees to treatment. Rehab PT IP Eval Objective Appearance Patient Behavior Appropriate Patient Orientation Person,Place,Time Difficulty following instructions none Speech Pattern Clear Ambulation Patient Able to Ambulate No Transfers Bed Transfer Ability Moderate x 1 (50% assist) MMT All Extremities PT MMT WFL Abnormal MMT Grade tested supine Rehab PT IP prob,goals,plan Problems Date of Evaluation: 03/11/22 PT IP Problems Bed Mobility,Transfers,Gait Rehab Potential Rehab Potential Good Plan PT Intervention Plan Bed Mobility,Transfers,Gait, Self care,Therapeutic Exercise PT Plan Frequency BID Duration LOS Discharge Goals Bed Transfer Ability Minimal x 1 (25% assist) Sit to Stand Chair Transfer Ability Moderate x 1 (50% assist) Ambulation Assistive Device Rolling Walker Ambulation Distance (feet)
--- NOTE | 2022-03-11 13:00 | CT_ITS ---
PROCEDURE INFORMATION: Exam: CT Lumbar Spine Without Contrast Exam date and time: 03/11/2022 12:17 PM Age: 71 years old Clinical indication: Injury or trauma; Fall; Blunt trauma (contusions or hematomas); Additional info: Fracture-- compression fractures TECHNIQUE: Imaging protocol: Computed tomography of the lumbar spine without contrast. Radiation optimization: All CT scans at this facility use at least one of these dose optimization techniques: automated exposure control; mA and/or kV adjustment per patient size (includes targeted exams where dose is matched to clinical indication); or iterative reconstruction. COMPARISON: CT HIP LT WO CON 03/10/2022 2:01 PM FINDINGS: Bones/joints: Osteopenia. T12 compression fracture deformity with retropulsion of the posterosuperior vertebral endplate. Resultant encroachment upon the spinal canal and thoracic cord. Moderate compression deformity involving the anterior mid aspect of L4. Approximate 30% decrease in vertebral body height. Severe hypertrophic facet changes at L5-S1. 3.5-4 mm broad based on lateral combined disc bulge and osteophytic ridge. Mild-moderate bilateral neural foraminal stenosis. Discs/Spinal canal/Neural foramina: Mild developmental tapering of the spinal canal. At L1-2: 2.5-3 mm broad based and left lateral disc bulge. Mild bilateral neural foraminal stenosis. At L2-3: 3.5-4 mm broad-based left greater than right lateral disc protrusion. Mild-moderate spinal stenosis secondary to accompanying ligamentum flavum hypertrophy and developmental tapering. Mild bilateral neural foraminal stenosis. At L3-4: 4 mm broad-based in lateral disc protrusion. AP dimensions of the spinal canal: 8 mm. Mild-moderate left greater than right neural foraminal stenosis. Lungs: Incomplete visualization of regions of subsegmental atelectasis at the lung bases. Kidneys and ureters: Postoperative changes involving the right kidney are also partially visualized. Clinically correlate. Soft tissues: At L4-5: Moderate ligamentum flavum hypertrophy. 4.5-5 mm broad-based left greater than right lateral disc protrusion. Moderately severe left mild right neural foraminal stenosis. Moderate spinal stenosis suggested. IMPRESSION: 1. L4 compression fracture deformity. Approximate 30% decrease in vertebral body height. 2. T12 compression fracture deformity with retropulsion of the posterosuperior vertebral endplate. Findings suggesting thoracic cord effacement. 3. At L2-3: 3.5-4 mm broad-based left greater than right lateral disc protrusion. Mild-moderate spinal stenosis and mild bilateral neural foraminal stenosis. 4. At L5-S1: 3.5-4 mm broad based on lateral combined disc bulge and osteophytic ridge. Mild-moderate bilateral neural foraminal stenosis. 5. At L3-4: 4 mm broad-based in lateral disc protrusion. Mild-moderate left greater than right neural foraminal stenosis. Mild spinal stenosis. 6. At L4-5: 4.5-5 mm broad-based left greater than right lateral disc protrusion. Moderately severe left, mild right neural foraminal stenosis. Moderate spinal stenosis. 7. At L5-S1: 3.5-4 mm broad based on lateral combined disc bulge and osteophytic ridge. Mild-moderate bilateral neural foraminal stenosis.
--- NOTE | 2022-03-11 13:00 | XR_ITS ---
PROCEDURE INFORMATION: Exam: XR Lumbosacral Spine Exam date and time: 03/11/2022 12:23 PM Age: 71 years old Clinical indication: Injury or trauma; Fall; Blunt trauma (contusions or hematomas); Additional info: Fracture- compression - TECHNIQUE: Imaging protocol: Radiologic exam of the lumbosacral spine. Views: 2 or 3 views. COMPARISON: CT LUMBAR SPINE WO CON 03/11/2022 12:17 PM FINDINGS: Bones/joints: Osteopenia. Mild scoliosis of the lumbar spine convexity to the right. Compression fracture deformity T12. L4. Findings suboptimally visualized. Soft tissues: Unremarkable. IMPRESSION: 1. Compression fracture deformities T12 and L4. 2. Osteopenia. 3. Recommendations: Follow-up with magnetic resonance imaging to further evaluate for an acute compression fracture deformity.
[2022-03-11 14:25] LABS: POC Glucose,Bedside 83 (70-110)
[2022-03-11 15:51] VITALS: BP 134/84; PULSE 75; RESP 16; TEMP 36.9; O2SAT 95
--- NOTE | 2022-03-11 16:00 | PC.NURSE ---
Pt had an uneventful day during my shift. She had a good BM using the bedpan. No change since last assessment.
[2022-03-11 17:35] LABS: POC Glucose,Bedside 111 (70-110)
[2022-03-11 20:00] VITALS: BP 146/76; PULSE 75; RESP 16; TEMP 37.5; O2SAT 92
[2022-03-11 21:15] LABS: POC Glucose,Bedside 141 (70-110)
[2022-03-12 03:57] VITALS: BP 139/69; PULSE 76; RESP 17; TEMP 38; O2SAT 92
[2022-03-12 05:00] VITALS: BMI 29.9
[2022-03-12 05:57] LABS: POC Glucose,Bedside 113 (70-110)
--- NOTE | 2022-03-12 06:21 | PC.NURSE ---
Pt a+o. Pt c/o ROQUE, 650 mg tylenol administered. Pt tolerating 2L nc well with sats >90%. Call light within reach.
[2022-03-12 07:42] VITALS: BP 138/83; PULSE 84; RESP 18; TEMP 37; O2SAT 90
--- NOTE | 2022-03-12 09:16 | HMH.ACPN2 ---
Internal Medicine - PN: Subj *Date: 03/13/22 *Time: 06:48 Interval history: more alert but has pain with mov - more on left - Exam Vital signs and Labs for Last 24 Hours: Temp Pulse Resp BP Pulse Ox 98.6 F 84 18 138/83 90 L 03/12/22 07:42 03/12/22 07:42 03/12/22 07:42 03/12/22 07:42 03/12/22 07:42 Laboratory Results - last 24 hr 03/10/22 12:58: Urine Color Yellow, Urine Appearance Clear, Urine pH 6.0, Ur Specific [place] 1.020, Urine Protein Negative, Urine Glucose (UA) 2+, Urine Ketones Negative, Urine Blood Trace-i, Urine Nitrate Negative, Urine Bilirubin Negative, Urine Urobilinogen 0.2, Ur Leukocyte Esterase Negative, Urine RBC Occasional, Urine WBC 5-10, Ur Squamous Epith Cells 10-20, Urine Bacteria 2+, Urine Mucus Trace 03/11/22 11:32: POC Glucose 83 03/11/22 17:01: POC Glucose 111 H 03/11/22 21:04: POC Glucose 141 H 03/12/22 05:43: POC Glucose 113 H I & O for Last 24 hours: Intake & Output 03/09/22 03/10/22 03/11/22 03/12/22 11:59 11:59 11:59 11:59 Intake Total 840 / 840 Output Total 1500 / 1500 Balance -660 / -660 Weight 186 lb 6.4 oz 186 lb 4.65 oz Microbiology Reports for the Last 24 Hours: Microbiology 03/10/22 12:58 Urine,Clean Catch Urine Culture - Preliminary Gram Negative Rods Gram Negative Rods#2 - Constitutional no acute distress - *Routine HEENT Exam Head: Present: normocephalic Eye: Present: EOMI, PERRL ENT: Present: mucous membranes dry - *Routine Neck Exam Absent: JVD - *Routine Respiratory Exam Present: decreased breath sounds - *Routine Cardiovascular Exam Present: RRR - *Routine Abdominal Exam Present: soft - *Routine Extremities Exam Absent: calf tenderness - *Routine Skin Exam Present: intact - *Routine Neurological Exam Present: alert, CN II-XII intact. Absent: motor deficit - Routine Psychiatric Exam Present: cooperative Assessment and Plan (1) Pelvic fracture Status: Acute Qualifiers: Encounter type: initial encounter Pelvic bone location: pubis Sublocation of pubis: unspecified portion of pubis Fracture type: closed Laterality: left Qualified Code(s): S32.502A - Unspecified fracture of left pubis, initial encounter for closed fracture Category: Medical Code(s): S32.9XXA - Fracture of unspecified parts of lumbosacral spine and pelvis, initial encounter for closed fracture (2) Fracture of lumbar spine Status: Acute Category: Medical Code(s): S32.009A - Unspecified fracture of unspecified lumbar vertebra, initial encounter for closed fracture (3) Renal insufficiency Status: Acute Category: Medical Code(s): N28.9 - Disorder of kidney and ureter, unspecified (4) Osteopenia Status: Acute Qualifiers: Osteopenia location: lumbar spine Qualified Code(s): M85.88 - Other specified disorders of bone density and structure, other site Category: Medical Code(s): M85.80 - Other specified disorders of bone density and structure, unspecified site (5) Thoracic spine fracture Status: Acute Qualifiers: Thoracic vertebra fracture level: T12 Fracture type: closed Fracture morphology: wedge compression Fracture healing: with routine healing Category: Medical Code(s): S22.009A - Unspecified fracture of unspecified thoracic vertebra, initial encounter for closed fracture (6) Lumbar compression fracture Status: Acute Qualifiers: Encounter type: initial encounter Lumbar vertebra fracture level: L4 Qualified Code(s): S32.040A - Wedge compression fracture of fourth lumbar vertebra, initial encounter for closed fracture Category: Medical Code(s): S32.000A - Wedge compression fracture of unspecified lumbar vertebra, initial encounter for closed fracture (7) Lumbar facet arthropathy Status: Acute Category: Medical Code(s): M47.816 - Spondylosis without myelopathy or radiculopathy, lumbar reg
[2022-03-12 10:25] LABS: Basophils # 0.1 K/mm3 (0-0.2); Eosinophils # 0.4 K/mm3 (0.0-0.4); Hematocrit 42.1 % (37.0-47.0); Hemoglobin 12.1 g/dL (12.2-16.2); Lymphocytes # 1.6 K/mm3 (0.7-4.5); Lymphocytes % 18.6 % (10-50); Mean Corpuscular HGB Conc 28.8 g/dL (31.8-35.4); Mean Corpuscular Volume 93.9 fl (81-99); Monocytes # 0.5 K/mm3 (0.1-1.0); Monocytes % 6.4 % (1.7-9.3); Neutrophils # 5.7 K/mm3 (1.8-7.8); Platelet Count 161 K/mm3 (142-424); Red Blood Count 4.49 M/mm3 (4.20-5.40); Red Cell Distribution Width 15.5 % (11.5-17.5); White Blood Count 8.3 K/mm3 (4.8-10.8)
[2022-03-12 10:39] LABS: Alanine Aminotransferase 13 U/L (12-78); Albumin/Globulin Ratio 1.1 (1.1-1.8); Alkaline Phosphatase 95 U/L (38-126); Anion Gap 6.9 mEq/L (5-15); Aspartate Amino Transferase 22 U/L (14-36); Blood Urea Nitrogen 20 mg/dl (7-17); Calcium 8.7 mg/dl (8.4-10.2); Carbon Dioxide 32 mmol/L (22.0-30.0); Chloride 104 mmol/L (98-107); Creatinine Clearance Estimated 57 mL/min (50-200); Estimated Glomerular Filt Rate 44 ml/min (>60); GFR (African American) 53 ML/MIN (>60); Globulin 2.8 g/dL (1.3-3.2); Glucose 153 mg/dl (74-100); Potassium 3.9 mmoL/L (3.5-5.1); Sodium 139 mmol/L (136-145); Total Protein,Serum 5.8 g/dl (6.3-8.2)
[2022-03-12 10:45] LABS: Bilirubin,Total 0.1 mg/dl (0.2-1.3)
[2022-03-12 12:11] LABS: POC Glucose,Bedside 150 (70-110)
--- NOTE | 2022-03-12 15:02 | P.PN_ITS ---
Subjective Date: 03/12/22 Time: 15:02 Interval history: Resting comfortably. Working with PT. PN: Obj Ex Vital signs: Temp Pulse Resp BP Pulse Ox 98.6 F 84 18 138/83 90 L 03/12/22 07:42 03/12/22 07:42 03/12/22 07:42 03/12/22 07:42 03/12/22 07:42 - Constitutional no acute distress - Routine HEENT Exam Head: Present: normocephalic, atraumatic Eye: Present: EOMI - Routine Neck Exam Present: supple - Routine Respiratory Exam Absent: accessory muscle use - Routine Cardiovascular Exam Present: RRR - Routine Abdominal Exam Present: soft. Absent: distended - Routine Back/Spine/Pelvis Exam Comments: 5/5 L2-S1. SILT L2-S1. Normal reflexes, no clonus. Progress Note: A&P (1) Pelvic fracture Status: Acute (2) Fracture of lumbar spine Status: Acute (3) Renal insufficiency Status: Acute (4) Osteopenia Status: Acute (5) Thoracic spine fracture Status: Acute (6) Lumbar compression fracture Status: Acute (7) Lumbar facet arthropathy Status: Acute (8) Lumbar foraminal stenosis Status: Acute (9) Lumbar spinal stenosis Status: Acute (10) UTI (urinary tract infection) Status: Acute (11) Tobacco use Status: Acute (12) Fracture of thoracic spine Status: Acute Assessment and Plan for All Diagnoses:: 71 year old female with left SPR/IPR fracture, L4, T12 fracture. When compared to CTA earlier this year, T12 fracture is unchanged. Plan for lumbar MRI. Initially though LSO would be appropriate for isolated L4 fracture. With CT L- spine reult of T12 fracture, suspected she would need TLSO. Given chronicity of fracture when compared to CTA chest, LSO is appropriate. Plan for LSO application when available. MRI lumbar spine to evaluate chronicity of L4 fracture. T/L precautions. Protected WBAT LLE. Plan for 4 week follow up for repeat radiographs. Will follow.
[2022-03-12 16:00] VITALS: BP 152/71; PULSE 79; RESP 18; TEMP 37.3; O2SAT 92
[2022-03-12 17:02] LABS: POC Glucose,Bedside 152 (70-110)
--- NOTE | 2022-03-12 18:17 | PC.NURSE ---
Patient complained of pain when turning, morphine given and relief noted. VS stable and patient remained on 2LNC. No insulin given as patient on borderline of insulin dosage and patient stated she did not want insulin as she was not very hungry at meal times. No other complaints noted.
[2022-03-12 19:55] VITALS: BP 154/86; PULSE 90; RESP 18; TEMP 37.9; O2SAT 90
[2022-03-12 20:00] VITALS: O2SAT 90
[2022-03-12 20:37] LABS: POC Glucose,Bedside 136 (70-110)
[2022-03-13 04:00] VITALS: BP 122/76; PULSE 68; RESP 18; TEMP 36.6; O2SAT 96
[2022-03-13 05:00] VITALS: BMI 29.6
--- NOTE | 2022-03-13 07:17 | PC.NURSE ---
No acute changes. Pt tolerating 2 L nc well with sats >90%. No complaints voiced to staff. Call light within reach.
[2022-03-13 07:29] LABS: Blood Urea Nitrogen 19 mg/dl (7-17); Calcium 8.9 mg/dl (8.4-10.2); Carbon Dioxide 33 mmol/L (22.0-30.0); Chloride 104 mmol/L (98-107); Creatinine Clearance Estimated 45 mL/min (50-200); Estimated Glomerular Filt Rate 34 ml/min (>60); GFR (African American) 41 ML/MIN (>60); Glucose 118 mg/dl (74-100); Potassium 4.5 mmoL/L (3.5-5.1)
[2022-03-13 07:32] LABS: Anion Gap 6.5 mEq/L (5-15); Sodium 139 mmol/L (136-145)
[2022-03-13 07:34] LABS: Basophils % 0.4 % (0.1-2.0); Eosinophils # 0.3 K/mm3 (0.0-0.4); Eosinophils % 4.1 % (0.1-12.0); Hematocrit 38.8 % (37.0-47.0); Hemoglobin 12.3 g/dL (12.2-16.2); Lymphocytes # 1.8 K/mm3 (0.7-4.5); Lymphocytes % 21.1 % (10-50); Mean Corpuscular HGB Conc 31.8 g/dL (31.8-35.4); Mean Corpuscular Hemoglobin 27.7 pg (27.0-31.2); Mean Corpuscular Volume 87.2 fl (81-99); Mean Platelet Volume 9.2 fl (7.4-10.4); Monocytes # 0.7 K/mm3 (0.1-1.0); Monocytes % 8.2 % (1.7-9.3); Neutrophils # 5.5 K/mm3 (1.8-7.8); Neutrophils % 66.3 % (37.0-80.0); Platelet Count 144 K/mm3 (142-424); Red Blood Count 4.45 M/mm3 (4.20-5.40); Red Cell Distribution Width 14.9 % (11.5-17.5); White Blood Count 8.3 K/mm3 (4.8-10.8)
[2022-03-13 08:00] VITALS: BP 123/75; PULSE 73; RESP 20; TEMP 37.2; O2SAT 92
--- NOTE | 2022-03-13 08:00 | MR_ITS ---
FINAL REPORT CLINICAL HISTORY: fracture, FINDINGS: MRI LUMBAR SPINE W/O CONTRAST Multiplanar MR imaging of the lumbar spine was performed without contrast. On the sagittal T2-weighted images, disc degeneration is seen at multiple levels. There is mild anterolisthesis of L5 on S1. There is a moderate chronic T12 compression fracture with about 50% loss of height. There is a mild L4 inferior endplate compression fracture with 30% loss of height, favor subacute. There is bone marrow edema in the inferior L4 and superior L5 vertebral bodies. There is a Schmorl's node at the inferior endplate of L4. The conus has an unremarkable appearance. T12-L1: An annular bulge is present with vertebral osteophytes. There is mild right neural foraminal narrowing. L1-2: No significant central canal stenosis or neural foraminal narrowing. L2-3: There is an annular disc bulge with facet arthropathy. There is a left foraminal disc protrusion. There is mild right and moderate left neural foraminal narrowing. L3-4: There is an annular disc bulge with facet arthropathy. There is a left foraminal disc protrusion. There is mild right and moderate left neural foraminal narrowing. L4-5: There is an annular disc bulge with facet arthropathy and vertebral osteophytes. There is severe bilateral neural foraminal narrowing. L5-S1: There is an annular disc bulge with facet arthropathy. There is mild bilateral neural foraminal narrowing. IMPRESSION: Multilevel disc degeneration and spondylosis with areas of neural foraminal narrowing which is worse at L4-5 level. Moderate chronic T12 compression fracture with about 50% loss of height. Mild L4 inferior endplate compression fracture with 30% loss of height, favor subacute. Left foraminal disc protrusion at L2-3 and L3-4. Reviewed, Interpreted and Dictated by Juliocesar Sanchez III, MD Transcribed by Gypsy De Leon Authenticated and . [facility]
--- NOTE | 2022-03-13 09:21 | HMH.ACPN2 ---
Internal Medicine - PN: Subj *Date: 03/13/22 *Time: 11:46 Interval history: 71-year-old female patient resting quietly in bed with eyes open, she denies any concerns or needs at present. Ortho was seen and ordered MRI of lumbar spine to evaluate L4 fracture. UA culture and sensitivity showing Klebsiella pneumonia and E. coli, both are sensitive to ceftriaxone Exam Vital signs and Labs for Last 24 Hours: Temp Pulse Resp BP Pulse Ox 98.9 F 73 20 123/75 92 L 03/13/22 08:00 03/13/22 08:00 03/13/22 08:00 03/13/22 08:00 03/13/22 08:00 Laboratory Results - last 24 hr 03/12/22 09:35: WBC 8.3, RBC 4.49, Hgb 12.1 L, Hct 42.1, MCV 93.9, MCH 27.0, MCHC 28.8 L, RDW 15.5, Plt Count 161, MPV 10.0, Neut % (Auto) 69.0, Lymph % (Auto) 18.6, [place] % (Auto) 6.4, Eos % (Auto) 5.0, Baso % (Auto) 1.0, Neut # (Auto) 5.7, Lymph # (Auto) 1.6, [place] # (Auto) 0.5, Eos # (Auto) 0.4, Baso # (Auto) 0.1 03/12/22 09:35: Sodium 139, Potassium 3.9, Chloride 104, Carbon Dioxide 32 H, Anion Gap 6.9, BUN 20 H, Creatinine 1.20 H, Estimated Creat Clear 57, Estimated GFR 44 L, Est GFR ( Amer) 53 L, Glucose 153 H, Calcium 8.7, Total Bilirubin 0.1 L, AST 22, ALT 13, Alkaline Phosphatase 95, Total Protein 5.8 L, Albumin 3.0 L, Globulin 2.8, Albumin/Globulin Ratio 1.1 03/12/22 11:22: POC Glucose 150 H 03/12/22 16:33: POC Glucose 152 H 03/12/22 20:22: POC Glucose 136 H 03/13/22 06:10: WBC 8.3, RBC 4.45, Hgb 12.3, Hct 38.8, MCV 87.2, MCH 27.7, MCHC 31.8, RDW 14.9, Plt Count 144, MPV 9.2, Neut % (Auto) 66.3, Lymph % (Auto) 21.1, [place] % (Auto) 8.2, Eos % (Auto) 4.1, Baso % (Auto) 0.4, Neut # (Auto) 5.5, Lymph # (Auto) 1.8, [place] # (Auto) 0.7, Eos # (Auto) 0.3, Baso # (Auto) 0.0 03/13/22 06:10: Sodium 139, Potassium 4.5, Chloride 104, Carbon Dioxide 33 H, Anion Gap 6.5, BUN 19 H, Creatinine 1.50 H D, Estimated Creat Clear 45, Estimated GFR 34 L, Est GFR ( Amer) 41 L D, Glucose 118 H D, Calcium 8.9 I & O for Last 24 hours: Intake & Output 03/10/22 03/11/22 03/12/22 03/13/22 23:59 23:59 23:59 23:59 Intake Total 600 / 600 720 / 840 180 / 180 Output Total 500 / 1500 1500 / 1850 350 / 350 Balance 100 / -900 -780 / -1010 -170 / -170 Weight 188 lb 4 oz 186 lb 6.4 oz 186 lb 4.65 oz 184 lb 8 oz Microbiology Reports for the Last 24 Hours: Microbiology 03/10/22 12:58 Urine,Clean Catch Urine Culture - Preliminary Gram Negative Rods Gram Negative Rods#2 - Constitutional no acute distress - *Routine HEENT Exam Head: Present: normocephalic Eye: Present: EOMI ENT: Present: mucous membranes moist - *Routine Neck Exam Present: trachea midline. Absent: tracheal deviation - *Routine Respiratory Exam Present: CTA bilaterally. Absent: accessory muscle use - *Routine Cardiovascular Exam Present: RRR - *Routine Abdominal Exam Present: soft, normoactive bowel sounds. Absent: tenderness, firm - *Routine Extremities Exam Present: full ROM, pulses intact. Absent: cyanosis, clubbing, calf tenderness - *Routine Skin Exam Present: intact, dry. Absent: cyanosis, erythema - *Routine Neurological Exam Present: alert, oriented X3. Absent: motor deficit - Routine Psychiatric Exam Present: unable to assess Assessment and Plan (1) Pelvic fracture Status: Acute Qualifiers: Encounter type: initial encounter Pelvic bone location: pubis Sublocation of pubis: unspecified portion of pubis Fracture type: closed Laterality: left Qualified Code(s): S32.502A - Unspecified fracture of left pubis, initial encounter for closed fracture Category: Medical Code(s): S32.9XXA - Fracture of unspecified parts of lumbosacral spine and pelvis, initial encounter for closed fracture (2) Fracture of lumbar spine Status: Acute Category: Medical Code(s): S32.009A - Unspecified fracture of unspecified lumbar vertebra, initial encounter for closed fracture (3) Renal insufficie
--- NOTE | 2022-03-13 09:51 | SW/DCPLANNER ---
Addendum entered by [facility] 03/16/22 09:39: This patient has been approved to discharge to [facility] today per [place]. Patient will require a COVID swab prior to discharge. I will update patient's daughter. Addendum entered by [facility] 03/15/22 14:43: [facility]/ [facility] has started precert at this time. Addendum entered by [facility] 03/15/22 14:26: CORRECTION: [facility] is still reviewing patient information/precert has not been started at this time. Addendum entered by [facility] 03/15/22 14:24: [facility] has started a precert on this patient. I will continue to update MD/patient/family. Addendum entered by [facility] 03/15/22 13:23: Bryan (/ [employer]) contacted [employer] (Jono Schwartz) and stated that [facility] is not in network with patient's insurance and that [facility] has revoked precert. I have attempted to contact [facility] hernandez/ [facility]: no answer at this time. I spoke with patient and her daughter regarding facilities in network: mostly [facility] and [facility] along with a few others. Daughter stated that she would prefer [facility]. [facility]/ [facility] stated that she does have female beds available at this time. Patient information has been faxed and I will continue to follow up with facilities. Addendum entered by [facility] 03/15/22 09:16: [facility] has requested additional information per insurance: information has been faxed. Addendum entered by [facility] 03/14/22 09:54: [facility] stated that she can accept this patient and precert will be started today. I have called and updated patient's daughter and she is agreeable with plan. I will also updated Charmaine Cale hernandez/ [facility]. Addendum entered by [facility] 03/13/22 15:48: I spoke with patient about discharge plans as well and she has requested that I speak with daughter regarding discharge plans. [facility]/ [facility] has stated that she is able to accept this patient pending precert. I called and updated patient's daughter regarding situation and explained to daughter that I have not heard back from [facility] at this time (attempted to call multiple times). Daughter aggressively requested that precert not be started at [facility] until I hear back from [facility]. I attempted to contact [facility]ol several times with no answer at this time. I will continue to follow up with [facility] and patient/family. Addendum entered by Janessa Lau 03/13/22 10:18: Patient information has been faxed to [facility] and [facility]. Original Note: I called and spoke with patient's daughter regarding plans once medically stable for discharge. Daughter stated that she understands that patient will need SNF level of care prior to returning to [facility]. Daughter prefer that patient information be faxed to [facility] or [facility]: if not a candidate for these facilities then daughter prefers [facility]. I will continue to follow up with: , patient's family and facilities.
[2022-03-13 15:00] VITALS: BMI 29.6
--- NOTE | 2022-03-13 15:27 | HMH.OTEV ---
OT Inpatient Evaluation Rehab OT IP Evaluation Start: 03/11/22 08:28 Freq: ONCE Status: Complete Protocol: Document 03/13/22 15:18 ZION (Rec: 03/13/22 15:27 [id number] Rehab OT IP Assessment Subjective History Pt oriented x 3 on arrival. Pt agreeable to engage in therapy evaluation. Pt admitted via ED on 03/10/22 after a fall out of her bed resulting in Pelvic fx. Prior to her fall, pt was living at [facility]. Pt claims she was independent with dressing, feeding, and bathing. Pt was dependent upon staff to complete cleaning and cooking. Pt did use a walker during ambulation. The following information was copied from history and physical report: this patient presented to ed states that she rolled out of bed this AM. Denies any new pain from fall. States that she has chronic left groin pain r/t a pulled muscle. Pt states that she has had some burning with urination x1 month. Patient is brought in by ambulance from [facility] . Complains of pain in her left groin/inguinal area. She says it has been present for 2 months. Pain worsens when she moves her left lower extremity at the hip. States that she has been able to ambulate without difficulty. She says that there was no inciting fall or trauma. However, she says she rolled out of bed today and could not get back up into bed and therefore EMS was called. She denies any other new injuries . Denies head or neck injury. Denies any injury to abdomen or back. She says she
[2022-03-13 16:00] VITALS: BP 133/74; PULSE 93; RESP 21; TEMP 36.6; O2SAT 89
--- NOTE | 2022-03-13 16:00 | HMH.ORTHPN ---
Subjective Date: 03/13/22 Time: 15:45 Principal diagnosis: Left superior/inferior pubic rami fractures, T12 and L4 fractures Interval history: Patient is a 71-year-old female admitted to the inpatient service 03/11/2022 after rolling out of bed at [facility] living [facility]. Evaluation in the [facility] emergency department demonstrates left superior/inferior pubic rami fractures. Subsequent evaluation demonstrates a chronic T12 compression fracture and likely subacute L4 compression fracture. This afternoon the patient is sitting comfortably in a chair at the bedside. She reports she has been transferring to the bedside chair with the assistance of physical therapy. She states that she has intermittent hip/back pain but that it is well controlled with rest and as needed pain medication. She denies any history of distal tingling/numbness. She denies any other symptoms or concerns at this time. PN: Obj Ex Vital signs: Temp Pulse Resp BP Pulse Ox 98.9 F 73 20 123/75 92 L 03/13/22 08:00 03/13/22 08:00 03/13/22 08:00 03/13/22 08:00 03/13/22 08:00 - Constitutional no acute distress, cooperative - Routine HEENT Exam Head: Present: normocephalic, atraumatic Eye: Present: EOMI, PERRL ENT: Present: mucous membranes moist - Routine Neck Exam Present: supple, full ROM, trachea midline. Absent: JVD, lymphadenopathy - Routine Respiratory Exam Absent: accessory muscle use, respiratory distress Comments: Symmetric chest movement, able to speak in complete sentences - Routine Cardiovascular Exam Present: RRR Comments: Normal peripheral pulses - Routine Abdominal Exam Present: soft. Absent: tenderness - Routine Extremities Exam Comments: Upon examination of the left lower extremity: The skin is intact. No lacerations, abrasions, ulcerations, or erythema evident. Anterior hip joint is mildly tender to palpation. Attempted movements of the left hip are somewhat painful. Thigh and calf are soft nontender; Homans' sign is negative. No clinical evidence of DVT noted. Good muscle strength demonstrated upon exam, 5/5 L2/S1. Posterior tibial pulse 1+; capillary refill is brisk. Distal neurovascular status is intact; sensation to light touch is grossly intact throughout. Diagnostic imaging: MRI of the lumbar spine performed today at [facility] reviewed along with radiologist report. MRI of the lumbar spine demonstrates a chronic T12 compression fracture and mild L4 compression fracture, likely subacute. Radiologist report is as follows: IMPRESSION: Multilevel disc degeneration and spondylosis with areas of neural foraminal narrowing which is worse at L4-5 level. Moderate chronic T12 compression fracture with about 50% loss of height. Mild L4 inferior endplate compression fracture with 30% loss of height, favor subacute. Left foraminal disc protrusion at L2-3 and L3-4. Reviewed, Interpreted and Dictated by Juliocesar Sanchez III, MD Transcribed by Gypsy De Leon Authenticated and . [facility] - Routine Skin Exam Present: intact, warm, normal turgor. Absent: cyanosis, erythema, lesions, jaundice - Routine Neurological Exam Present: alert, oriented X3, moving all extremities, normal tone, normal speech. Absent: sensory deficit, motor deficit, altered mental status - Routine Psychiatric Exam Present: normal affect, cooperative Progress Note: A&P (1) Pelvic fracture Status: Acute (2) Fracture of lumbar spine Status: Acute (3) Renal insufficiency Status: Acute (4) Osteopenia Status: Acute (5) Thoracic spine fracture Status: Acute (6) Lumbar compression fracture Status: Acute (7) Lumbar facet arthropathy Status: Acute (8) Lumbar foraminal stenosis Status: Acute (9) Lumbar spinal stenosis Status: Acute (10) UTI (urinary tract inf
[2022-03-13 17:16] LABS: POC Glucose,Bedside 117 (70-110)
[2022-03-13 20:00] VITALS: BP 133/68; PULSE 77; RESP 18; TEMP 37.3; O2SAT 88; O2SAT 91
[2022-03-14 00:59] LABS: POC Glucose,Bedside 151 (70-110)
[2022-03-14 04:00] VITALS: BP 134/84; PULSE 86; RESP 18; TEMP 37.1; O2SAT 95
[2022-03-14 04:09] VITALS: BMI 29.6
[2022-03-14 06:45] VITALS: O2SAT 94
[2022-03-14 06:55] LABS: POC Glucose,Bedside 101 (70-110)
--- NOTE | 2022-03-14 07:30 | PC.NURSE ---
No acute changes. Pt tolerating 2L nc well with sats >90%. No complaints voiced to staff. Call light within reach
[2022-03-14 07:33] LABS: Basophils # 0.1 K/mm3 (0-0.2); Basophils % 1.1 % (0.1-2.0); Eosinophils # 0.5 K/mm3 (0.0-0.4); Eosinophils % 6.2 % (0.1-12.0); Hemoglobin 12.6 g/dL (12.2-16.2); Lymphocytes # 1.6 K/mm3 (0.7-4.5); Mean Corpuscular HGB Conc 29.3 g/dL (31.8-35.4); Mean Corpuscular Volume 92.2 fl (81-99); Mean Platelet Volume 9.8 fl (7.4-10.4); Monocytes # 0.5 K/mm3 (0.1-1.0); Monocytes % 5.6 % (1.7-9.3); Neutrophils # 5.7 K/mm3 (1.8-7.8); Neutrophils % 68.1 % (37.0-80.0); Platelet Count 153 K/mm3 (142-424); Red Blood Count 4.67 M/mm3 (4.20-5.40); Red Cell Distribution Width 15.6 % (11.5-17.5); White Blood Count 8.4 K/mm3 (4.8-10.8)
--- NOTE | 2022-03-14 07:40 | HMH.ORTHPN ---
Subjective Date: 03/14/22 Time: 07:15 Principal diagnosis: Left superior/inferior pubic rami fractures, T12 and L4 fractures Interval history: Patient is a 71-year-old female admitted to the inpatient service 03/11/2022 after sustaining left superior and inferior pubic rami fractures after rolling out of bed at [facility]. Subsequent evaluation demonstrates a chronic T12 compression fracture and likely subacute L4 compression fracture. This morning the patient is sitting up comfortably in bed. She reports she has been working with physical therapy and that this is going well. She states that she has intermittent hip/back pain but that it is well controlled with rest and as needed pain medication. She denies any history of distal tingling/numbness. Her biggest complaint this morning is dysuria, she is being treated for a UTI with ceftriaxone. She denies any other symptoms or concerns at this time. PN: Obj Ex Vital signs: Temp Pulse Resp BP Pulse Ox 98.7 F 86 18 134/84 95 03/14/22 04:00 03/14/22 04:00 03/14/22 04:00 03/14/22 04:00 03/14/22 04:00 - Constitutional no acute distress, cooperative - Routine HEENT Exam Head: Present: normocephalic, atraumatic Eye: Present: EOMI, PERRL ENT: Present: mucous membranes moist - Routine Neck Exam Present: supple, full ROM, trachea midline. Absent: JVD, lymphadenopathy - Routine Respiratory Exam Absent: accessory muscle use, respiratory distress Comments: symmetric chest movement, able to speak in complete sentences - Routine Cardiovascular Exam Present: RRR Comments: normal peripheral pulses - Routine Abdominal Exam Present: soft. Absent: tenderness - Routine Extremities Exam Comments: Upon examination of the left lower extremity: The skin is intact. No lacerations, abrasions, ulcerations, or erythema evident. The anterior hip joint is mildly tender to palpation. Attempted movements of the left hip are somewhat painful. Thigh and calf are soft nontender; Homans' sign is negative. No clinical evidence of DVT noted. Good muscle strength demonstrated upon exam, 5/5 L2/S1. Posterior tibial pulse 1+; capillary refill is brisk. Distal neurovascular status is intact; sensation to light touch is grossly intact throughout. - Routine Skin Exam Present: intact, warm, normal turgor. Absent: cyanosis, erythema, lesions, jaundice - Routine Neurological Exam Present: alert, oriented X3, CN II-XII intact, altered mental status, moving all extremities, normal tone, normal speech. Absent: sensory deficit, motor deficit - Routine Psychiatric Exam Present: normal affect, cooperative Progress Note: A&P (1) Pelvic fracture Status: Acute (2) Fracture of lumbar spine Status: Acute (3) Renal insufficiency Status: Acute (4) Osteopenia Status: Acute (5) Thoracic spine fracture Status: Acute (6) Lumbar compression fracture Status: Acute (7) Lumbar facet arthropathy Status: Acute (8) Lumbar foraminal stenosis Status: Acute (9) Lumbar spinal stenosis Status: Acute (10) UTI (urinary tract infection) Status: Acute (11) Tobacco use Status: Acute Assessment and Plan for All Diagnoses:: Patient is a 71-year-old female with left superior and inferior pubic rami fractures, chronic appearing T12 fracture, and subacute L4 fracture. I have discussed the clinical findings and diagnostic imaging with the patient. Lumbar spine MRI demonstrates a chronic T12 compression fracture and mild L4 compression fracture, likely subacute. Plan for lumbar spine orthotic application when available. Plan to continue PT/OT; thoracic spine/lumbar spine precautions. Patient may continue to mobilize weightbearing as tolerated on the left lower extremity. Continue rest and as needed pain medication. She will be seen in our office for her first follow-up appointment in 4 weeks for repeat pelvic/spine x-rays and reev
[2022-03-14 07:48] LABS: Anion Gap 7.3 mEq/L (5-15); Blood Urea Nitrogen 24 mg/dl (7-17); Calcium 9.1 mg/dl (8.4-10.2); Carbon Dioxide 33 mmol/L (22.0-30.0); Chloride 105 mmol/L (98-107); Creatinine Clearance Estimated 56 mL/min (50-200); Estimated Glomerular Filt Rate 44 ml/min (>60); GFR (African American) 53 ML/MIN (>60); Glucose 119 mg/dl (74-100); Potassium 4.3 mmoL/L (3.5-5.1); Sodium 141 mmol/L (136-145)
[2022-03-14 08:00] VITALS: BP 146/76; PULSE 82; RESP 16; TEMP 36.8; O2SAT 92
--- NOTE | 2022-03-14 09:20 | PC.NURSE ---
2L NC O2 turned OFF. O2 sat 89% on RA.
--- NOTE | 2022-03-14 09:31 | PC.NURSE ---
O2 sat now 80% on RA. Pleth is good. Pt denies dyspnea. Does not appear in distress. 2L NC reapplied. Case management (Pacheco Lau) updated.
--- NOTE | 2022-03-14 09:50 | PC.NURSE ---
O2 sat now 92% on 2L NC. Pt sitting in chair
[2022-03-14 12:00] VITALS: BP 149/87; PULSE 65; RESP 16; TEMP 37.1; O2SAT 95
[2022-03-14 12:02] LABS: POC Glucose,Bedside 116 (70-110)
--- NOTE | 2022-03-14 13:21 | HMH.ACPN2 ---
Internal Medicine - PN: Subj *Date: 03/14/22 *Time: 15:11 Interval history: 71-year-old female patient sitting up in bed, she denies any concerns/needs at present. Urine has resulted in Klebsiella pneumonia a and E. coli, she is receiving ceftriaxone IV. We will plan on discharge to halfway tomorrow awaiting precertification Exam Vital signs and Labs for Last 24 Hours: Temp Pulse Resp BP Pulse Ox 98.8 F 65 16 149/87 H 95 03/14/22 12:00 03/14/22 12:00 03/14/22 12:00 03/14/22 12:00 03/14/22 12:00 Laboratory Results - last 24 hr 03/13/22 16:39: POC Glucose 117 H 03/13/22 19:54: POC Glucose 151 H 03/14/22 06:46: POC Glucose 101 03/14/22 07:20: WBC 8.4, RBC 4.67, Hgb 12.6, Hct 43.0, MCV 92.2, MCH 27.0, MCHC 29.3 L, RDW 15.6, Plt Count 153, MPV 9.8, Neut % (Auto) 68.1, Lymph % (Auto) 19.0, [place] % (Auto) 5.6, Eos % (Auto) 6.2, Baso % (Auto) 1.1, Neut # (Auto) 5.7, Lymph # (Auto) 1.6, [facility] # (Auto) 0.5, Eos # (Auto) 0.5 H, Baso # (Auto) 0.1 03/14/22 07:20: Sodium 141, Potassium 4.3, Chloride 105, Carbon Dioxide 33 H, Anion Gap 7.3, BUN 24 H D, Creatinine 1.20 H, Estimated Creat Clear 56, Estimated GFR 44 L, Est GFR ( Amer) 53 L D, Glucose 119 H, Calcium 9.1 03/14/22 11:55: POC Glucose 116 H I & O for Last 24 hours: Intake & Output 03/11/22 03/12/22 03/13/22 03/14/22 23:59 23:59 23:59 23:59 Intake Total 600 / 600 720 / 840 300 / 300 240 / 240 Output Total 500 / 1500 1500 / 1850 350 / 350 0 / 0 Balance 100 / -900 -780 / -1010 -50 / -50 240 / 240 Weight 186 lb 6.4 oz 186 lb 4.65 oz 184 lb 7.725 oz 184 lb 9 oz Microbiology Reports for the Last 24 Hours: Microbiology 03/10/22 12:58 Urine,Clean Catch Urine Culture - Final Klebsiella pneumoniae Escherichia coli - Constitutional no acute distress - *Routine HEENT Exam Head: Present: normocephalic Eye: Present: EOMI ENT: Present: mucous membranes moist - *Routine Neck Exam Present: trachea midline. Absent: tracheal deviation - *Routine Respiratory Exam Present: CTA bilaterally. Absent: accessory muscle use - *Routine Cardiovascular Exam Present: RRR - *Routine Abdominal Exam Present: soft, normoactive bowel sounds. Absent: tenderness, distended - *Routine Extremities Exam Present: full ROM, pulses intact. Absent: cyanosis, clubbing, calf tenderness - *Routine Skin Exam Present: intact, dry. Absent: cyanosis, erythema, jaundice - *Routine Neurological Exam Present: alert, oriented X3. Absent: motor deficit - Routine Psychiatric Exam Present: normal affect, normal thought process. Absent: auditory hallucinations Assessment and Plan (1) Pelvic fracture Status: Acute Qualifiers: Encounter type: initial encounter Pelvic bone location: pubis Sublocation of pubis: unspecified portion of pubis Fracture type: closed Laterality: left Qualified Code(s): S32.502A - Unspecified fracture of left pubis, initial encounter for closed fracture Category: Medical Code(s): S32.9XXA - Fracture of unspecified parts of lumbosacral spine and pelvis, initial encounter for closed fracture (2) Fracture of lumbar spine Status: Acute Category: Medical Code(s): S32.009A - Unspecified fracture of unspecified lumbar vertebra, initial encounter for closed fracture (3) Renal insufficiency Status: Acute Category: Medical Code(s): N28.9 - Disorder of kidney and ureter, unspecified (4) Osteopenia Status: Acute Qualifiers: Osteopenia location: lumbar spine Qualified Code(s): M85.88 - Other specified disorders of bone density and structure, other site Category: Medical Code(s): M85.80 - Other specified disorders of bone density and structure, unspecified site (5) Thoracic spine fracture Status: Acute Qualifiers: Thoracic vertebra fracture level: T12 Fracture type: closed Fracture morphology: wedge compression Fracture heali
[2022-03-14 16:00] VITALS: BP 148/74; PULSE 73; RESP 17; TEMP 36.6; O2SAT 95
--- NOTE | 2022-03-14 18:27 | PC.NURSE ---
pt has done well t/o shift, no complaints of pain. GCS 14 with mild confusion. iv 20g R forearm SL, patent. O2 at 3 L via NC, O2 sat 97%. excoriation for groin area, cleaned and applied nystatin powder. purewick in place with clear yellow urine. plans of d/c tomorrow to [facility]. no questions or concerns at this time.
[2022-03-14 20:00] VITALS: BP 143/78; PULSE 69; RESP 20; TEMP 36.7; O2SAT 2; O2SAT 94
[2022-03-14 21:07] LABS: POC Glucose,Bedside 187 (70-110)
--- NOTE | 2022-03-14 21:30 | PC.NURSE ---
report received from RENÉ Riddle
--- NOTE | 2022-03-14 21:45 | PC.NURSE ---
2145 Patient to OB unit room 280 with belongings at this time. .
[2022-03-15 00:58] LABS: POC Glucose,Bedside 108 (70-110)
[2022-03-15 04:00] VITALS: BP 164/76; PULSE 70; RESP 18; TEMP 36.8; O2SAT 90
[2022-03-15 07:04] LABS: POC Glucose,Bedside 113 (70-110)
[2022-03-15 07:39] LABS: Basophils % 0.3 % (0.1-2.0); Eosinophils # 0.4 K/mm3 (0.0-0.4); Eosinophils % 5.5 % (0.1-12.0); Hematocrit 38.8 % (37.0-47.0); Hemoglobin 12.3 g/dL (12.2-16.2); Lymphocytes # 1.7 K/mm3 (0.7-4.5); Lymphocytes % 22.8 % (10-50); Mean Corpuscular HGB Conc 31.8 g/dL (31.8-35.4); Mean Corpuscular Hemoglobin 27.7 pg (27.0-31.2); Mean Platelet Volume 9.5 fl (7.4-10.4); Monocytes # 0.5 K/mm3 (0.1-1.0); Monocytes % 6.5 % (1.7-9.3); Neutrophils # 4.9 K/mm3 (1.8-7.8); Neutrophils % 64.9 % (37.0-80.0); Platelet Count 144 K/mm3 (142-424); Red Blood Count 4.45 M/mm3 (4.20-5.40); Red Cell Distribution Width 14.7 % (11.5-17.5); White Blood Count 7.5 K/mm3 (4.8-10.8)
[2022-03-15 07:49] LABS: Anion Gap 10.3 mEq/L (5-15); Blood Urea Nitrogen 26 mg/dl (7-17); Carbon Dioxide 29 mmol/L (22.0-30.0); Chloride 105 mmol/L (98-107); Creatinine Clearance Estimated 61 mL/min (50-200); Estimated Glomerular Filt Rate 49 ml/min (>60); GFR (African American) 59 ML/MIN (>60); Glucose 121 mg/dl (74-100); Potassium 4.3 mmoL/L (3.5-5.1); Sodium 140 mmol/L (136-145)
[2022-03-15 08:00] VITALS: BP 160/88; PULSE 67; RESP 18; TEMP 36.7; O2SAT 83
--- NOTE | 2022-03-15 08:54 | HMH.ACPN ---
Internal Medicine - PN: Subj *Date: 03/15/22 *Time: 08:54 Exam Vital signs and Labs for Last 24 Hours: Temp Pulse Resp BP Pulse Ox 98.3 F 70 18 164/76 H 90 L 03/15/22 04:00 03/15/22 04:00 03/15/22 04:00 03/15/22 04:00 03/15/22 04:00 Laboratory Results - last 24 hr 03/14/22 11:55: POC Glucose 116 H 03/14/22 16:32: POC Glucose 187 H 03/14/22 21:03: POC Glucose 108 03/15/22 06:56: POC Glucose 113 H 03/15/22 07:24: WBC 7.5, RBC 4.45, Hgb 12.3, Hct 38.8, MCV 87.0, MCH 27.7, MCHC 31.8, RDW 14.7, Plt Count 144, MPV 9.5, Neut % (Auto) 64.9, Lymph % (Auto) 22.8, Hamblen % (Auto) 6.5, Eos % (Auto) 5.5, Baso % (Auto) 0.3, Neut # (Auto) 4.9, Lymph # (Auto) 1.7, Hamblen # (Auto) 0.5, Eos # (Auto) 0.4, Baso # (Auto) 0.0 03/15/22 07:24: Sodium 140, Potassium 4.3, Chloride 105, Carbon Dioxide 29, Anion Gap 10.3, BUN 26 H, Creatinine 1.10 H, Estimated Creat Clear 61, Estimated GFR 49 L, Est GFR ( Amer) 59, Glucose 121 H, Calcium 9.0 I & O for Last 24 hours: Intake & Output 03/12/22 03/13/22 03/14/22 03/15/22 23:59 23:59 23:59 23:59 Intake Total 720 / 840 300 / 300 600 / 600 120 / 120 Output Total 1500 / 1850 350 / 350 700 / 700 400 / 400 Balance -780 / -1010 -50 / -50 -100 / -100 -280 / -280 Weight 84.5 kg 83.68 kg 83.716 kg Assessment and Plan (1) Pelvic fracture Status: Acute Qualifiers: Encounter type: initial encounter Pelvic bone location: pubis Sublocation of pubis: unspecified portion of pubis Fracture type: closed Laterality: left Qualified Code(s): S32.502A - Unspecified fracture of left pubis, initial encounter for closed fracture Category: Medical Code(s): S32.9XXA - Fracture of unspecified parts of lumbosacral spine and pelvis, initial encounter for closed fracture (2) Fracture of lumbar spine Status: Acute Category: Medical Code(s): S32.009A - Unspecified fracture of unspecified lumbar vertebra, initial encounter for closed fracture (3) Renal insufficiency Status: Acute Category: Medical Code(s): N28.9 - Disorder of kidney and ureter, unspecified (4) Osteopenia Status: Acute Qualifiers: Osteopenia location: lumbar spine Qualified Code(s): M85.88 - Other specified disorders of bone density and structure, other site Category: Medical Code(s): M85.80 - Other specified disorders of bone density and structure, unspecified site (5) Thoracic spine fracture Status: Acute Qualifiers: Thoracic vertebra fracture level: T12 Fracture type: closed Fracture morphology: wedge compression Fracture healing: with routine healing Category: Medical Code(s): S22.009A - Unspecified fracture of unspecified thoracic vertebra, initial encounter for closed fracture (6) Lumbar compression fracture Status: Acute Qualifiers: Encounter type: initial encounter Lumbar vertebra fracture level: L4 Qualified Code(s): S32.040A - Wedge compression fracture of fourth lumbar vertebra, initial encounter for closed fracture Category: Medical Code(s): S32.000A - Wedge compression fracture of unspecified lumbar vertebra, initial encounter for closed fracture (7) Lumbar facet arthropathy Status: Acute Category: Medical Code(s): M47.816 - Spondylosis without myelopathy or radiculopathy, lumbar region (8) Lumbar foraminal stenosis Status: Acute Category: Medical Code(s): M48.061 - Spinal stenosis, lumbar region without neurogenic claudication (9) Lumbar spinal stenosis Status: Acute Qualifiers: Neurogenic claudication status: without neurogenic claudication Qualified Code(s): M48.061 - Spinal stenosis, lumbar region without neurogenic claudication Category: Medical Code(s): M48.061 - Spinal stenosis, lumbar region without neurogenic claudication (10) UTI (urinary tract infection) Status: Acute Qualifiers: Urinary tract infection type: site unspecified Hematuria presence: without hematuria Qualified Code(s): N39.0
--- NOTE | 2022-03-15 09:19 | PC.NURSE ---
Pt. noted to have O2 off, room air O2 sats noted to be at 83%. O2 applied at 2L via NC O2 sats up to 88%, O2 turned to 3L via NC O2 sats up to 93%. Pt. tolerated well.
--- NOTE | 2022-03-15 10:13 | HMH.DCSUM ---
General - General Admission date:: 03/10/22 Discharge date: 03/15/22 HPI HPI: this patient presented to ed states that she rolled out of bed this AM. Denies any new pain from fall. States that she has chronic left groin pain r/t a pulled muscle. Pt states that she has had some burning with urination x1 month. Patient is brought in by ambulance from [facility]. Complains of pain in her left groin/inguinal area. She says it has been present for 2 months. Pain worsens when she moves her left lower extremity at the hip. States that she has been able to ambulate without difficulty. She says that there was no inciting fall or trauma. However, she says she rolled out of bed today and could not get back up into bed and therefore EMS was called. She denies any other new injuries. Denies head or neck injury. Denies any injury to abdomen or back. She says she otherwise feels well except that she has burning dysuria for 1 month. pt was unable to ambulate and admitted for eval by ortho and treatment Hospital Course Hospital Course: this patient presented to ed states that she rolled out of bed this AM. Denies any new pain from fall. States that she has chronic left groin pain r/t a pulled muscle. Pt states that she has had some burning with urination x1 month. Patient is brought in by ambulance from [facility]. Complains of pain in her left groin/inguinal area. She says it has been present for 2 months. Pain worsens when she moves her left lower extremity at the hip. States that she has been able to ambulate without difficulty. She says that there was no inciting fall or trauma. However, she says she rolled out of bed today and could not get back up into bed and therefore EMS was called. She denies any other new injuries. Denies head or neck injury. Denies any injury to abdomen or back. She says she otherwise feels well except that she has burning dysuria for 1 month. pt was unable to ambulate and admitted for eval by ortho and treatment 03/10/[address]: FINDINGS: Bones/joints: Nondisplaced fracture of the superior pubic ramus. No evidence of extension of the fracture plane into the acetabulum. An extremely subtle fracture of the inferior pubic ramus is also demonstrated (series 4, image number 81). Incomplete visualization of L4 compression fracture deformity. Age indeterminate. Soft tissues: Normal. IMPRESSION: 1. Nondisplaced fracture left superior pubic ramus. No evidence of extension into the acetabulum. 2. Nondisplaced subtle fracture inferior pubic ramus. 3. Incomplete visualization of L4 compression fracture deformity. Age indeterminate. Electronically signed by Pavithra Erazo MD 03/11/[address]: FINDINGS: Bones/joints: Osteopenia. T12 compression fracture deformity with retropulsion of the posterosuperior vertebral endplate. Resultant encroachment upon the spinal canal and thoracic cord. Moderate compression deformity involving the anterior mid aspect of L4. Approximate 30% decrease in vertebral body height. Severe hypertrophic facet changes at L5-S1. 3.5-4 mm broad based on lateral combined disc bulge and osteophytic ridge. Mild-moderate bilateral neural foraminal stenosis. Discs/Spinal canal/Neural foramina: Mild developmental tapering of the spinal canal. At L1-2: 2.5-3 mm broad based and left lateral disc bulge. Mild bilateral neural foraminal stenosis. At L2-3: 3.5-4 mm broad-based left greater than right lateral disc protrusion. Mild-moderate spinal stenosis secondary to accompanying ligamentum flavum hypertrophy and developmental tapering. Mild bilateral neural foraminal stenosis. At L3-4: 4 mm broad-based in lateral disc protrusion. AP dimensions of the spinal canal: 8 mm. Mild-moderate left greater than right neural foraminal stenosis. Lungs: Incomplete visualization of regions of subsegmental atelectasis at the lung bases. Kidneys and ure
--- NOTE | 2022-03-15 10:17 | HMH.ORTHPN ---
Subjective Date: 03/15/22 Time: 09:55 Principal diagnosis: Left superior/inferior pubic rami fractures, T12 and L4 fractures Interval history: Patient is a 71-year-old female admitted to the inpatient service 03/11/2022 after sustaining left superior and inferior pubic rami fractures after rolling out of bed at [facility]. Subsequent evaluation demonstrates a chronic T12 compression fracture and likely subacute L4 compression fracture. This morning the patient is sitting up comfortably in a chair at the bedside. She reports she has been working with physical therapy and that this is going well. She received her LSO yesterday and reports her back feels better. She states that she has intermittent hip pain but states that it is well controlled with rest and as needed pain medication. She denies any history of distal tingling/numbness. She denies any other symptoms or concerns at this time. PN: Obj Ex Vital signs: Temp Pulse Resp BP Pulse Ox 98.1 F 67 18 160/88 H 83 L 03/15/22 08:00 03/15/22 08:00 03/15/22 08:00 03/15/22 08:00 03/15/22 08:00 - Constitutional no acute distress, cooperative - Routine HEENT Exam Head: Present: normocephalic, atraumatic Eye: Present: EOMI, PERRL ENT: Present: mucous membranes moist - Routine Neck Exam Present: supple, full ROM, trachea midline. Absent: JVD, lymphadenopathy - Routine Respiratory Exam Absent: accessory muscle use, respiratory distress Comments: Symmetric chest movement, able to speak in complete sentences - Routine Cardiovascular Exam Present: RRR Comments: Normal peripheral pulses - Routine Abdominal Exam Present: soft. Absent: tenderness - Routine Extremities Exam Comments: Upon examination of the left lower extremity: The skin is intact. No lacerations, abrasions, ulcerations, or erythema evident. The anterior hip joint is mildly tender to palpation. Attempted movements of the left hip are somewhat painful. Thigh and calf are soft nontender; Homans' sign is negative. No clinical evidence of DVT noted. Good muscle strength demonstrated upon exam, 5/5 L2/S1. Posterior tibial pulse 1+; capillary refill is brisk. Distal neurovascular status is intact; sensation to light touch is grossly intact throughout. - Routine Skin Exam Present: intact, warm, normal turgor. Absent: cyanosis, erythema, lesions, jaundice - Routine Neurological Exam Present: alert, oriented X3, moving all extremities, normal tone, normal speech. Absent: sensory deficit, motor deficit, altered mental status - Routine Psychiatric Exam Present: normal affect, cooperative Progress Note: A&P (1) Pelvic fracture Status: Acute (2) Fracture of lumbar spine Status: Acute (3) Renal insufficiency Status: Acute (4) Osteopenia Status: Acute (5) Thoracic spine fracture Status: Acute (6) Lumbar compression fracture Status: Acute (7) Lumbar facet arthropathy Status: Acute (8) Lumbar foraminal stenosis Status: Acute (9) Lumbar spinal stenosis Status: Acute (10) UTI (urinary tract infection) Status: Acute (11) Tobacco use Status: Acute (12) E-coli UTI Status: Acute (13) UTI due to Klebsiella species Status: Acute Assessment and Plan for All Diagnoses:: Patient is a 71-year-old female with left superior and inferior pubic rami fractures, chronic appearing T12 fracture, and subacute L4 fracture. I have discussed the clinical findings and diagnostic imaging with the patient. Continue LSO for L4 fracture. Plan to continue PT/OT; thoracic spine/lumbar spine precautions. Patient may continue to mobilize weightbearing as tolerated on the left lower extremity. Continue rest and as needed pain medication. She will be seen in our office for her first follow-up appointment in 4 weeks for repeat pelvic/spine x-rays and reevaluation; the patient has an appointment in our office with Dr. Snider on
--- NOTE | 2022-03-15 11:09 | PC.NURSE ---
Discharge order noted, Spoke with Janessa [facility], still awaiting Precertification for [facility]. Will await notification from Care management to discharge pt.
[2022-03-15 11:25] LABS: POC Glucose,Bedside 123 (70-110)
--- NOTE | 2022-03-15 14:30 | PC.NURSE ---
Spoke with [facility] management, [facility] not in-network with insurance, Reports discharge order is to be cancelled per Amrit Starks, and awaiting precert for another [facility] Facility.
[2022-03-15 16:00] VITALS: BP 168/84; PULSE 71; RESP 18; TEMP 36.8; O2SAT 97
--- NOTE | 2022-03-15 16:30 | PC.NURSE ---
Routine reassessment completed. No acute changes noted, Pt. denies pain, pt. denies needs, will continue to monitor.
[2022-03-15 17:34] LABS: POC Glucose,Bedside 133 (70-110)
[2022-03-15 20:00] VITALS: BP 182/90; PULSE 61; RESP 17; TEMP 36.6; O2SAT 98
[2022-03-15 20:15] VITALS: BP 154/84; O2SAT 98
[2022-03-15 21:27] LABS: POC Glucose,Bedside 115 (70-110)
[2022-03-16 04:20] VITALS: BP 157/82; PULSE 68; RESP 20; TEMP 36.8
--- NOTE | 2022-03-16 04:20 | PC.NURSE ---
pt has rested well this shift. A&O x4 with periods of mild confusion about place at times, but reorients quickly. Pt has reported minimal pain throughout shift. VSS. Lugs CTAB, bowels active X4 quadrants. Purewick in place for urine collection, output 750ml this shift. IV to R arm intact and flushes well. Pt remains on 3L NC with sats greater than 96%. Call light within reach.
[2022-03-16 05:55] LABS: POC Glucose,Bedside 111 (70-110)
[2022-03-16 07:19] LABS: Basophils # 0.1 K/mm3 (0-0.2); Eosinophils # 0.5 K/mm3 (0.0-0.4); Eosinophils % 7.3 % (0.1-12.0); Hematocrit 43.4 % (37.0-47.0); Hemoglobin 13.3 g/dL (12.2-16.2); Lymphocytes # 1.4 K/mm3 (0.7-4.5); Lymphocytes % 20.7 % (10-50); Mean Corpuscular HGB Conc 30.7 g/dL (31.8-35.4); Mean Corpuscular Volume 91.3 fl (81-99); Monocytes # 0.4 K/mm3 (0.1-1.0); Monocytes % 5.4 % (1.7-9.3); Neutrophils # 4.5 K/mm3 (1.8-7.8); Neutrophils % 64.6 % (37.0-80.0); Platelet Count 110 K/mm3 (142-424); Red Blood Count 4.75 M/mm3 (4.20-5.40); Red Cell Distribution Width 15.4 % (11.5-17.5); White Blood Count 6.9 K/mm3 (4.8-10.8)
[2022-03-16 08:03] LABS: Chloride 107 mmol/L (98-107); Potassium 4.6 mmoL/L (3.5-5.1); Sodium 139 mmol/L (136-145)
[2022-03-16 08:06] LABS: Anion Gap 8.6 mEq/L (5-15); Blood Urea Nitrogen 25 mg/dl (7-17); Calcium 9.5 mg/dl (8.4-10.2); Carbon Dioxide 28 mmol/L (22.0-30.0); Creatinine Clearance Estimated 67 mL/min (50-200); Estimated Glomerular Filt Rate 62 ml/min (>60); GFR (African American) 74 ML/MIN (>60); Glucose 118 mg/dl (74-100)
[2022-03-16 09:26] LABS: Coronavirus 19, PCR Not Detected (NotDetected); Influenza A, PCR Not Detected (NotDetected); Influenza B, PCR Not Detected (NotDetected)
--- NOTE | 2022-03-16 11:23 | PC.NURSE ---
Janessa (CM) at [facility] to see pt
--- NOTE | 2022-03-16 16:35 | PC.NURSE ---
Called received from Elaina at [facility] stating that transport is good to go and daughter since papers.
--- NOTE | 2022-03-16 17:00 | PC.NURSE ---
Msg left with [facility] to return call concerning transport.
--- NOTE | 2022-03-16 17:30 | PC.NURSE ---
Report called to [facility].
--- NOTE | 2022-03-16 18:19 | PC.NURSE ---
[facility] notified of need for transport. V/U.
--- NOTE | 2022-03-16 18:53 | PC.NURSE ---
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
== END 2022-03-16 19:10 | DRG 536 ==
LOC: ER 14:21 → 2ND 15:50 → OB 03-14 20:45
PROVIDERS: Nurse Practitioner Family; Admitting Provider Internal Medicine Adolescent Medicine; Emergency Provider Emergency Medicine; PCP Emergency Medicine; Visit Provider Emergency Medicine
DX: S32.512A Fracture of superior rim of left pubis, initial encounter for closed fracture (principal); S22.080A Wedge compression fracture of T11-T12 vertebra, initial encounter for closed fracture; S32.040A Wedge compression fracture of fourth lumbar vertebra, initial encounter for closed fracture; N39.0 Urinary tract infection, site not specified; Z79.01 Long term (current) use of anticoagulants; Z79.899 Other long term (current) drug therapy; F17.210 Nicotine dependence, cigarettes, uncomplicated; M47.816 Spondylosis without myelopathy or radiculopathy, lumbar region; M48.061 Spinal stenosis, lumbar region without neurogenic claudication; I11.0 Hypertensive heart disease with heart failure; I50.9 Heart failure, unspecified; J44.9 Chronic obstructive pulmonary disease, unspecified
CPT/HCPCS: 36415; 71045; 72100; 72131; 72148; 72192; 73502; 73700; 76376; 80048; 80053; 81001; 82803; 82962; 85025; 87086; 87088; 87186; 94760; 94761; 97110; 97116; 97163; 97166; 97530; 97760; 99285; C9803; J0696; J2405; U0003; U0005

== ENCOUNTER → 2022-05-04 13:04 | Outpatient (CLI) | payer MEDICARE, MEDICAID, SELFPAY ==
--- NOTE | 2022-05-04 13:12 | XR_ITS ---
FINAL REPORT CLINICAL HISTORY: pubic rami fracture f/u COMPARISON: Prior CT dated March 10, 2022 FINDINGS: SINGLE VIEW PELVIS: A single view of the pelvis was obtained. There is increased callus formation at the lateral left superior pubic ramus fracture and at the medial left inferior pubic ramus fracture. No acute bony abnormality is identified. Soft tissues are unremarkable. IMPRESSION: Findings consistent with healing fractures. Reviewed, Interpreted and Dictated by Eloy Clay MD Transcribed by Gypsy De Leon Authenticated and [facility]
--- NOTE | 2022-05-04 13:12 | XR_ITS ---
FINAL REPORT CLINICAL HISTORY: l4 fracture f/u COMPARISON: MRI dated March 13, 2022 FINDINGS: LUMBAR SPINE Three views were obtained. There is no acute fracture. There is no malalignment. There is moderate disc space narrowing. There is 50% loss of height of T12 vertebra, stable. There is abnormal loss of height of L4 anteriorly. Loss of height measures approximately 40%, which is similar to previous. A Schmorl's node is noted in the endplate of L4. There is moderate facet sclerosis in the lower lumbar spine. There is no soft tissue abnormality. IMPRESSION: Compression deformities of T12 and L4 which is similar to previous. Moderate degenerative changes at L5-S1. Reviewed, Interpreted and Dictated by Eloy Clay MD Transcribed by Gypsy De Leon Authenticated and [facility]
== END ==
LOC: RAD 13:06
PROVIDERS: PCP Emergency Medicine; Visit Provider Orthopaedic Surgery
DX: S32.009A Unspecified fracture of unspecified lumbar vertebra, initial encounter for closed fracture (principal); S32.9XXA Fracture of unspecified parts of lumbosacral spine and pelvis, initial encounter for closed fracture
CPT/HCPCS: 72100; 72170

== ENCOUNTER 2022-06-23 18:25 | Observation (INO) | payer MEDICARE, MEDICAID, SELFPAY ==
--- NOTE | 2022-06-23 18:29 | CT_ITS ---
PROCEDURE INFORMATION: Exam: CT Head Without Contrast Exam date and time: 06/23/2022 6:31 PM Age: 71 years old Clinical indication: Injury or trauma; Fall; Blunt trauma (contusions or hematomas); Additional info: Fall, blood thinner TECHNIQUE: Imaging protocol: Computed tomography of the head without contrast. Radiation optimization: All CT scans at this facility use at least one of these dose optimization techniques: automated exposure control; mA and/or kV adjustment per patient size (includes targeted exams where dose is matched to clinical indication); or iterative reconstruction. COMPARISON: No relevant prior studies available. FINDINGS: Brain: Moderate bilateral white matter hypodensities which are nonspecific but most commonly associated with chronic microvascular ischemia in this age group. The IACs are grossly normal. No extra-axial fluid collections. No evidence of acute intracranial hemorrhage. No CT evidence of large territory acute or subacute intracranial ischemia/infarct. No intracranial mass lesions. No midline shift or herniation. Cerebral ventricles: Moderate compensatory ventriculomegaly secondary to central atrophy. Pituitary gland and sella: The sella is grossly normal. Paranasal sinuses: Visualized paranasal sinuses are clear. Mastoid air cells: Visualized mastoid air cells are clear. Orbital cavities: No acute intraorbital findings. Bones/joints: The calvarium and visualized facial bones are intact. Soft tissues: Occipital and high midline frontal scalp soft tissue swelling with no underlying fracture or foreign body. Vasculature: Moderate calcific atherosclerosis. No asymmetric vascular hyperdensities suggestive of thrombosis are identified. Other findings: Moderate generalized atrophy. Mohamud-white differentiation is well maintained. IMPRESSION: 1. No acute intracranial process. No intracranial hemorrhage or mass effect. 2. Mild scalp soft tissue swelling in the high midline frontal scalp and occipital scalp, with no underlying fracture or foreign body. 3. Atrophy and nonspecific white matter hypodensities, most commonly related to chronic microvascular ischemia in this age group. 4. Moderate calcific atherosclerosis.
--- NOTE | 2022-06-23 18:29 | ECG_ITS ---
APPROVED REPORT Exam: Resting ECG HR:70 bpm ECG Measurements Heart Rate 70 AXES VT 159 P 80 QRSd 84 QRS 90 QT 396 T 72 QTc 417 Conclusion SINUS RHYTHM NORMAL ECG UNCONFIRMED REPORT Electronically signed by : Angel Zhong MD 06/24/2022 08:55:35
--- NOTE | 2022-06-23 18:29 | XR_ITS ---
PROCEDURE INFORMATION: Exam: XR Chest Exam date and time: 06/23/2022 6:55 PM Age: 71 years old Clinical indication: Injury or trauma; Fall; Blunt trauma (contusions or hematomas) TECHNIQUE: Imaging protocol: Radiologic exam of the chest. Views: 1 view. COMPARISON: CR XR CHEST AP 03/10/2022 2:07 PM FINDINGS: Lungs: Pulmonary vasculature grossly normal. No gross pulmonary infiltrates or edema pattern. Mild peripheral scarring in the left mid lung. There are few scattered perihilar granulomatous calcifications. Pleural spaces: No pleural effusion. No pneumothorax. Heart/Mediastinum: Heart size normal. No tracheal/mediastinal shift. Vasculature: Moderate aortic ectasia/tortuosity and calcific atherosclerosis. Bones/joints: No acute osseous abnormalities are identified. Osteopenia. Moderate thoracic spondylosis. IMPRESSION: No acute thoracic process.
--- NOTE | 2022-06-23 18:31 | HMH.EDGENADL ---
Discharge Plan Disposition Patient Disposition: Admitted as Observation Condition: Fair Prescriptions Prescriptions: No Action gabapentin 300 mg capsule 300 mg PO TID Qty: 90 5RF rivaroxaban 20 MG tablet 20 mg PO QPMWITHMEAL potassium chloride 10 MEQ tablet extended release 10 meq PO DAILY allopurinol 100 MG tablet 50 mg PO DAILY glimepiride 1 MG tablet 1 mg PO DAILY pravastatin 80 MG tablet 80 mg PO HS aspirin 81 MG tablet,chewable 81 mg PO DAILY montelukast 10 MG tablet 10 mg PO PM sertraline 50 MG tablet 50 mg PO DAILY cyclobenzaprine 5 MG tablet 5 mg PO TIDP PRN (Reason: Muscle Spasm) dextromethorphan-guaifenesin 1 EACH tablet 1 each PO DAILY albuterol sulfate 90 MCG aerosol powdr breath activated 2 puffs IH Q4HP PRN (Reason: Shortness Of Breath) ergocalciferol (vitamin D2) 50,000 UNIT capsule 50,000 unit PO WEEKLY fluticasone furoate-vilanterol 1 EACH blister with device 1 puff IH DAILY Label Comments: INHALE 1 PUFF BY MOUTH ONCE DAILY metoprolol succinate 50 MG tablet extended release 24 hr 50 mg PO DAILY famotidine 20 MG tablet 20 mg PO DAILY lisinopril 30 MG tablet 30 mg PO DAILY dapagliflozin 10 MG tablet 10 mg PO DAILY cefdinir 300 MG capsule 300 mg PO BID 6 Days Qty: 12 0RF Referrals Follow up/Referrals: Michael Dunn MD [Primary Care Provider] - See instructions Clinical Impressions Clinical Impression: Acute kidney injury, Fall, Generalized weakness Discharge ED Provider: Daisy Cramer Adult HPI General Chief complaint: Fall Stated complaint: Fall Time Seen by Provider: 06/23/22 18:29 Mode of Arrival: EMS Source of Information: Patient and EMS Limitations: No Limitations History of Present Illness HPI narrative: 71-year-old female presenting to the emergency department after fall. Patient resides at [facility]. EMS was called after she had a fall in her room. Unsure exactly what happened. She denies injuries from the fall. Does not think she struck her head. Currently does not have headache, neck pain, chest pain, abdominal pain, pain in her extremities. When EMS arrived she was able to walk to the ambulance. However, initial vital signs showed hypotension. She has had a good day today, went out with her son. Denies recent illness, cough, shortness of breath, fevers, chills. She has had diarrhea intermittently over the last few weeks. No abdominal pain. No recent antibiotic use. She takes blood thinner. Takes medicine for high blood pressure Related Data Home Medications Medication Instructions Recorded Confirmed albuterol sulfate 90 mcg/actuation 2 puffs inhalation Q4HP PRN 10/17/21 05/04/22 breath activated powder inhaler Shortness Of Breath allopurinol 100 mg tablet 50 mg PO DAILY GOUT 10/17/21 05/04/22 aspirin 81 mg chewable tablet 81 mg PO DAILY heart health 10/17/21 05/04/22 cyclobenzaprine 5 mg tablet 5 mg PO TIDP PRN Muscle Spasm 10/17/21 05/04/22 dextromethorphan-guaifenesin 20 1 each PO DAILY Cough 10/17/21 05/04/22 mg-400 mg tablet glimepiride 1 mg tablet 1 mg PO DAILY Diabetes 10/17/21 05/04/22 montelukast 10 mg tablet 10 mg PO PM Allergy symptoms 10/17/21 05/04/22 potassium chloride 10 mEq 10 meq PO DAILY Supplement 10/17/21 05/04/22 tablet,extended release pravastatin 80 mg tablet 80 mg PO HS Cholesterol 10/17/21 05/04/22 rivaroxaban 20 mg tablet 20 mg PO QPMWITHMEAL Blood thinner 10/17/21 05/04/22 sertraline 50 mg tablet 50 mg PO DAILY MOOD 10/17/21 05/04/22 ergocalciferol (vitamin D2) 1,250 50,000 unit PO WEEKLY Supplement 10/18/21 05/04/22 mcg (50,000 unit) capsule fluticasone furoate 100 1 puff inhalation DAILY Breathing 10/18/21 05/04/22 mcg-vilanterol 25 mcg/dose problems inhalation powder dapagliflozin 10 mg tablet 10 mg PO DAILY Diabetes 03/10/22 05/04/22 famotidine 20 mg tablet 20 mg PO DAILY GERD 0
--- NOTE | 2022-06-23 18:36 | XR_ITS ---
PROCEDURE INFORMATION: Exam: XR Left Hip Exam date and time: 06/23/2022 6:55 PM Age: 71 years old Clinical indication: Injury or trauma; Fall; Blunt trauma (contusions or hematomas); Left; Hip TECHNIQUE: Imaging protocol: Radiologic exam of the Left hip. Views: 2 or 3 views hip with pelvis when performed. COMPARISON: CR XR PELVIS 1-2V 05/04/2022 1:24 PM FINDINGS: Bones/joints: Osteopenia. Chronic fractures of the left superior and inferior pubic rami are unchanged from 05/04/2022. No new fractures. Hip joints are well aligned. Pubic symphysis and SI joints are unremarkable, with no evidence of diastasis. Moderate disc degenerative changes L4-L5 and L5-S1. Soft tissues: No gross soft tissue abnormalities. Vasculature: Moderate calcific atherosclerosis. IMPRESSION: 1. No acute fractures. 2. Chronic fractures of the left superior and inferior pubic rami are unchanged 3. Osteopenia and lower lumbar osteoarthritic changes.
[2022-06-23 18:52] VITALS: BP 83/48; PULSE 68; RESP 17; TEMP 36.8; O2SAT 98; BMI 25.0
[2022-06-23 18:52] LABS: Basophils # 0.1 K/mm3 (0-0.2); Basophils % 1.2 % (0.1-2.0); Eosinophils # 0.4 K/mm3 (0.0-0.4); Hematocrit 45.9 % (37.0-47.0); Hemoglobin 14.3 g/dL (12.2-16.2); Lymphocytes # 3.5 K/mm3 (0.7-4.5); Lymphocytes % 31.6 % (10-50); Mean Corpuscular HGB Conc 31.1 g/dL (31.8-35.4); Mean Corpuscular Hemoglobin 27.5 pg (27.0-31.2); Mean Corpuscular Volume 88.4 fl (81-99); Mean Platelet Volume 10.7 fl (7.4-10.4); Monocytes # 0.5 K/mm3 (0.1-1.0); Monocytes % 4.9 % (1.7-9.3); Neutrophils # 6.5 K/mm3 (1.8-7.8); Neutrophils % 58.4 % (37.0-80.0); Platelet Count 190 K/mm3 (142-424); Red Cell Distribution Width 17.4 % (11.5-17.5); White Blood Count 11.1 K/mm3 (4.8-10.8)
[2022-06-23 18:57] LABS: Chloride 105 mmol/L (98-107); Sodium 137 mmol/L (136-145)
[2022-06-23 18:58] LABS: Potassium 4.5 mmoL/L (3.5-5.1)
[2022-06-23 19:00] LABS: Alanine Aminotransferase 14 U/L (12-78); Alkaline Phosphatase 139 U/L (38-126); Aspartate Amino Transferase 26 U/L (14-36); Bilirubin,Total 0.4 mg/dl (0.2-1.3); Blood Urea Nitrogen 29 mg/dl (7-17); Creatinine Clearance Estimated 25 mL/min (50-200); Estimated Glomerular Filt Rate 22 ml/min (>60); GFR (African American) 27 ML/MIN (>60)
[2022-06-23 19:01] VITALS: BP 112/46; PULSE 63; RESP 16; O2SAT 95
[2022-06-23 19:01] LABS: Albumin Level 3.4 g/dl (3.5-5.0); Albumin/Globulin Ratio 1.1 (1.1-1.8); Anion Gap 13.5 mEq/L (5-15); Calcium 9.2 mg/dl (8.4-10.2); Carbon Dioxide 23 mmol/L (22.0-30.0); Globulin 3.1 g/dL (1.3-3.2); Glucose 112 mg/dl (74-100); Total Protein,Serum 6.5 g/dl (6.3-8.2)
[2022-06-23 19:19] LABS: Coronavirus 19, PCR Not Detected (NotDetected); Influenza A, PCR Not Detected (NotDetected); Influenza B, PCR Not Detected (NotDetected)
[2022-06-23 19:30] VITALS: BP 103/57; PULSE 73; RESP 18; O2SAT 95
[2022-06-23 20:25] VITALS: BP 114/71; PULSE 74; RESP 19; O2SAT 96
--- NOTE | 2022-06-23 20:30 | PC.NURSE ---
Pt is aware of plan to admit. Pt agreeable. No needs or concerns voiced at this time.
--- NOTE | 2022-06-23 20:33 | EXP.HP ---
History of Present Illness *Admission Date: 06/23/22 *Reason for visit:: syncope *History of present illness: This is a 71-year-old female with past medical history of DVT on Xarelto, CHF, DM, hypertension, hyperlipidemia, renal insufficiency who resides at [facility] who presents emergency department today for syncopal episode. EMS was called when patient was found in her room at [facility]. At the time of arrival to the emergency department, unknown circumstances surrounding syncopal episode. She was able to ambulate with EMS but was noted to have blood pressure in the 70s. After initiation of IV fluids that she had an increase in her systolic blood pressure. Emergency department work-up significant for RISHI with a creatinine of 2.2, baseline of 0.6. CT head negative. All other laboratory evaluation unremarkable, urinalysis pending at the time of admission. Due to her RISHI and syncopal episode, she will be admitted to the hospital service for further evaluation and management On my exam patient does endorse some intermittent diarrhea over the last several days and feeling generally unwell. She also endorses episode of vomiting after syncopal episode. She denies any pain at this time. She is normostolic, resting comfortably. [facility] Medical History Cancer of kidney Congestive heart failure COPD (chronic obstructive pulmonary disease) History of DVT (deep vein thrombosis) Hypertension Surgical History (Updated 06/23/22 @ 23:13 by Irasema Lobo RN) H/O tubal ligation History of kidney surgery Family History Mother Family history of cancer Sister Family history of cancer Social History Smoking Status: Current every day smoker tobacco type: cigarettes packs per day: 1 alcohol intake: never current occupational status: retired Travel in the last 8 weeks: None household members: other housing: assisted living facility Review of Systems Review of Systems Review of systems:: pertinent systems reviewed and negative unless documented below Constitutional Constitutional: Denies weakness *Musculoskeletal Musculoskeletal: Denies numbness and Denies tingling *Neurologic Neurologic: Denies numbness, Denies tingling and Denies weakness Meds Home Medications and Allergies Home Medications Medication Instructions Recorded Confirmed Type albuterol sulfate 90 mcg/actuation 2 puffs inhalation Q4HP PRN 10/17/21 06/23/22 History breath activated powder inhaler Shortness Of Breath allopurinol 100 mg tablet 50 mg PO DAILY GOUT 10/17/21 06/23/22 History aspirin 81 mg chewable tablet 81 mg PO DAILY heart health 10/17/21 06/23/22 History cyclobenzaprine 5 mg tablet 5 mg PO Q8HP PRN Muscle Spasm 10/17/21 06/23/22 History glimepiride 1 mg tablet 1 mg PO DAILYDM Diabetes 10/17/21 06/24/22 History montelukast 10 mg tablet 10 mg PO PM Allergy symptoms 10/17/21 06/24/22 History potassium chloride 10 mEq 10 meq PO DAILY Supplement 10/17/21 06/23/22 History tablet,extended release pravastatin 80 mg tablet 80 mg PO HS Cholesterol 10/17/21 06/23/22 History rivaroxaban 20 mg tablet 20 mg PO QPMWITHMEAL Blood 10/17/21 06/23/22 History thinner/DVT history sertraline 50 mg tablet 50 mg PO DAILY Depression 10/17/21 06/23/22 History fluticasone furoate 100 1 puff inhalation DAILY Breathing 10/18/21 06/23/22 History mcg-vilanterol 25 mcg/dose problems inhalation powder dapagliflozin 10 mg tablet 10 mg PO DAILYDM Diabetes 03/10/22 06/24/22 History famotidine 20 mg tablet 20 mg PO DAILY acid reflux 03/10/22 06/23/22 History lisinopril 30 mg tablet 30 mg PO DAILY Hypertension 03/10/22 06/23/22 History metoprolol succinate 50 mg 50 mg PO DAILY Hypertension 03/10/22 06/24/22 History tablet,extended release 24 hr gabapentin 300 mg capsule 300 mg PO TID Pain #90 caps 06/14/22 10
[2022-06-23 20:46] VITALS: BP 109/58; PULSE 80; RESP 16; TEMP 36.6; O2SAT 96
--- NOTE | 2022-06-23 20:52 | PC.NURSE ---
Report called to Margaret Villalpando at this time
--- NOTE | 2022-06-23 21:13 | PC.NURSE ---
PT ARRIVED TO FLOOR VIA WHEELCHAIR @ 2126.
[2022-06-23 21:40] VITALS: BP 103/51; PULSE 76; RESP 20; TEMP 37; O2SAT 93
[2022-06-23 22:58] LABS: POC Glucose,Bedside 66 (70-110)
[2022-06-23 23:10] VITALS: BMI 23.8
[2022-06-24 01:29] LABS: Appearance,Urine CLEAR (Clear); Blood, Urine Negative (Negative); Color,Urine YELLOW (Yellow); Glucose,Urine (UA) 1+ (Negative); Ketones,Urine Negative (Negative); Leukocyte Esterase,Urine Negative (Negative); Microscopic, Urine URINE MICROSCOPIC (MICROSCOPIC); Nitrate,Urine Negative (Negative); Protein,Urine Negative (Negative); Specific Gravity, Urine 1.025 (1.005-1.030); Urobilinogen,Urine 0.2 EU/dl (0.2)
[2022-06-24 01:32] LABS: Bilirubin,Urine Negative (Negative)
[2022-06-24 01:33] LABS: Amorphous Sediment,Urine 4+ /lpf
--- NOTE | 2022-06-24 03:17 | PC.NURSE ---
AT 2245, GLUCOSE 66. PT ASYMPTOMATIC. JUICE AND SNACK GIVEN TO PT. PT DRANK JUICE AND ATE SNACK, STATES SHE FEELS FINE.
[2022-06-24 04:00] VITALS: BP 116/54; PULSE 98; RESP 18; TEMP 37.5; O2SAT 93
--- NOTE | 2022-06-24 04:17 | PC.NURSE ---
When pt first came to floor some rectal bleeding reported by PEDRO when she helped pt to bathroom. Dried blood on depends noted. Pt states she has had diarrhea for 2 weeks. IV fluids infusing per order. Pt straight cathed earlier for urine specimen and sent to lab. Pt has been sleeping in intervals. No c/o verbalized by patient. Pt has had some episodes of incontinence. Pt has been alert and oriented. No needs voiced at this time. Bed alarm on for safety. Call light in reach.
--- NOTE | 2022-06-24 04:24 | PC.NURSE ---
pt refused SCDs. Explained to pt purpose of SCDs and risks of not using. Pt verbalized understanding.
[2022-06-24 05:57] LABS: POC Glucose,Bedside 68 (70-110)
[2022-06-24 07:02] LABS: Chloride 110 mmol/L (98-107)
[2022-06-24 07:03] LABS: Potassium 4.2 mmoL/L (3.5-5.1); Sodium 139 mmol/L (136-145)
[2022-06-24 07:06] LABS: Anion Gap 11.2 mEq/L (5-15); Basophils # 0.1 K/mm3 (0-0.2); Blood Urea Nitrogen 24 mg/dl (7-17); Calcium 8.1 mg/dl (8.4-10.2); Carbon Dioxide 22 mmol/L (22.0-30.0); Creatinine Clearance Estimated 32 mL/min (50-200); Eosinophils # 0.4 K/mm3 (0.0-0.4); Eosinophils % 4.8 % (0.1-12.0); Estimated Glomerular Filt Rate 30 ml/min (>60); GFR (African American) 36 ML/MIN (>60); Glucose 80 mg/dl (74-100); Hematocrit 41.3 % (37.0-47.0); Hemoglobin 12.7 g/dL (12.2-16.2); Lymphocytes # 2.4 K/mm3 (0.7-4.5); Lymphocytes % 32.3 % (10-50); Magnesium 1.6 mg/dl (1.6-2.3); Mean Corpuscular HGB Conc 30.6 g/dL (31.8-35.4); Mean Corpuscular Hemoglobin 27.2 pg (27.0-31.2); Mean Corpuscular Volume 88.9 fl (81-99); Mean Platelet Volume 10.8 fl (7.4-10.4); Monocytes # 0.4 K/mm3 (0.1-1.0); Monocytes % 5.5 % (1.7-9.3); Neutrophils # 4.2 K/mm3 (1.8-7.8); Neutrophils % 56.4 % (37.0-80.0); Platelet Count 163 K/mm3 (142-424); Red Blood Count 4.65 M/mm3 (4.20-5.40); Red Cell Distribution Width 17.6 % (11.5-17.5); White Blood Count 7.4 K/mm3 (4.8-10.8)
[2022-06-24 08:00] VITALS: BP 109/58; PULSE 89; RESP 16; TEMP 37.1; O2SAT 93
--- NOTE | 2022-06-24 09:17 | HMH.PHAINT1 ---
Pharmacy Intervention Comments: home medication list verified using list from previous admission
[2022-06-24 10:09] LABS: POC Glucose,Bedside 84 (70-110)
[2022-06-24 12:06] LABS: POC Glucose,Bedside 77 (70-110)
[2022-06-24 13:10] LABS: Hemoglobin A1C 5.3 % (4.0-6.0)
--- NOTE | 2022-06-24 14:59 | EXP.PN ---
Subjective *Date: 06/24/22 *Time: 14:59 Interval history: Patient cannot remember syncopal episode from yesterday. She reports her son took her out for pizza and she got back to her room and was standing up about to use the bathroom and then she was suddenly on the floor. Overall she feels weak. She reports using a walker to get around at her residence, [facility]. Exam Data for Last 24 hours Vital signs and Labs for Last 24 Hours: Temp Pulse Resp BP Pulse Ox 98.8 F 89 16 109/58 L 93 L 06/24/22 08:00 06/24/22 08:00 06/24/22 08:00 06/24/22 08:00 06/24/22 08:00 Laboratory Results - last 24 hr 06/23/22 18:34: WBC 11.1 H, RBC 5.20, Hgb 14.3, Hct 45.9, MCV 88.4, MCH 27.5, MCHC 31.1 L, RDW 17.4, Plt Count 190, MPV 10.7 H, Neut % (Auto) 58.4, Lymph % (Auto) 31.6, [place] % (Auto) 4.9, Eos % (Auto) 4.0, Baso % (Auto) 1.2, Neut # (Auto) 6.5, Lymph # (Auto) 3.5, [place] # (Auto) 0.5, Eos # (Auto) 0.4, Baso # (Auto) 0.1 06/23/22 18:34: Sodium 137, Potassium 4.5, Chloride 105, Carbon Dioxide 23, Anion Gap 13.5, BUN 29 H, Creatinine 2.20 H, Estimated Creat Clear 25, Estimated GFR 22 L, Est GFR ( Amer) 27 L, Glucose 112 H, Calcium 9.2, Total Bilirubin 0.4, AST 26, ALT 14, Alkaline Phosphatase 139 H, Total Protein 6.5, Albumin 3.4 L, Globulin 3.1, Albumin/Globulin Ratio 1.1 06/23/22 19:13: SARS-CoV-2 (PCR) Not detected, Influenza A Untype (PCR) Not detected, Influenza Type B (PCR) Not detected 06/23/22 22:45: POC Glucose 66 L 06/24/22 01:20: Urine Color Yellow, Urine Appearance Clear, Urine pH 6.0, Ur Specific [place] 1.025, Urine Protein Negative, Urine Glucose (UA) 1+, Urine Ketones Negative, Urine Blood Negative, Urine Nitrate Negative, Urine Bilirubin Negative, Urine Urobilinogen 0.2, Ur Leukocyte Esterase Negative, Urine WBC 3-5, Ur Squamous Epith Cells 5-10, Amorphous Sediment 4+ 06/24/22 05:23: POC Glucose 68 L 06/24/22 06:25: WBC 7.4 D, RBC 4.65, Hgb 12.7 D, Hct 41.3, MCV 88.9, MCH 27.2, MCHC 30.6 L, RDW 17.6 H, Plt Count 163, MPV 10.8 H, Neut % (Auto) 56.4, Lymph % (Auto) 32.3, [place] % (Auto) 5.5, Eos % (Auto) 4.8, Baso % (Auto) 1.0, Neut # (Auto) 4.2, Lymph # (Auto) 2.4, [place] # (Auto) 0.4, Eos # (Auto) 0.4, Baso # (Auto) 0.1 06/24/22 06:25: Sodium 139, Potassium 4.2, Chloride 110 H, Carbon Dioxide 22, Anion Gap 11.2, BUN 24 H, Creatinine 1.70 H D, Estimated Creat Clear 32, Estimated GFR 30 L, Est GFR ( Amer) 36 L D, Glucose 80 D, Calcium 8.1 L, Magnesium 1.6 06/24/22 06:25: Hemoglobin A1c 5.3 06/24/22 09:52: POC Glucose 84 06/24/22 11:51: POC Glucose 77 I & O for Last 24 hours: Intake & Output 06/21/22 06/22/22 06/23/22 06/24/22 23:59 23:59 23:59 23:59 Intake Total 950 / 950 Output Total 150 / 150 Balance 800 / 800 Weight 66.95 kg Constitutional Constitutional: no acute distress, chronically ill appearing and cooperative Comments: fatigued appearing *Routine HEENT Exam Head: Present normocephalic and atraumatic Eye: Present EOMI and PERRL ENT: Present mucous membranes dry and oropharynx clear *Routine Neck Exam Neck: Present supple and full ROM *Routine Respiratory Exam Respiratory: Present crackles (bibasilar ); Absent accessory muscle use or respiratory distress *Routine Cardiovascular Exam Cardiovascular: Present RRR, Normal S1 and Normal S2; Absent murmur *Routine Abdominal Exam Abdominal: Present soft and normoactive bowel sounds; Absent tenderness, distended, rebound or guarding *Routine Extremities Exam Extremities: Present full ROM, pulses intact and normal capillary refill; Absent edema or tenderness *Routine Neurological Exam Neurological: Present alert, oriented X3, CN II-XII intact, altered mental status (oriented to name and place only, at baseline ), abnormal gait (labored walking, somewhat unstable ), moving all extremities and normal speech; Absent sensory deficit, motor deficit or normal tone (decreased tone) Routine Psychiatric Exam Psychiatric: Present normal affect, normal thought
[2022-06-24 16:00] VITALS: BP 116/76; PULSE 70; RESP 14; TEMP 37.2; O2SAT 97
--- NOTE | 2022-06-24 16:02 | PC.NURSE ---
Patient able to ambulate to bathroom several times during shift. IVF given throughout shift. VS stable and patient remained on room air with no complaints. Patient stated she felt better than when she was admitted but still felt tired.
[2022-06-24 17:11] LABS: POC Glucose,Bedside 84 (70-110)
[2022-06-24 20:00] VITALS: BP 136/64; PULSE 68; RESP 16; TEMP 36.7; O2SAT 97
[2022-06-25 03:53] VITALS: BP 134/60; PULSE 64; RESP 16; TEMP 36.6; O2SAT 96
--- NOTE | 2022-06-25 04:52 | PC.NURSE ---
Pt alert and oriented x 4. Pt has rested well this shift. Iv infusing per order. Pt educated on need for stool sample - pt verbalized understanding but has not had BM thus far during my shift. BS active x 4. Lungs CTA. Assist x 1 w/ walker to bathroom. Pull alarm on for safety. Call light in reach.
[2022-06-25 05:00] VITALS: BMI 25.3
[2022-06-25 08:00] VITALS: BP 116/78; PULSE 85; RESP 18; TEMP 36.9; O2SAT 94
[2022-06-25 08:12] LABS: Basophils % 0.5 % (0.1-2.0); Eosinophils # 0.5 K/mm3 (0.0-0.4); Eosinophils % 7.9 % (0.1-12.0); Hematocrit 43.1 % (37.0-47.0); Hemoglobin 13.5 g/dL (12.2-16.2); Lymphocytes # 2.4 K/mm3 (0.7-4.5); Lymphocytes % 37.6 % (10-50); Mean Corpuscular HGB Conc 31.3 g/dL (31.8-35.4); Mean Corpuscular Hemoglobin 28.2 pg (27.0-31.2); Mean Corpuscular Volume 90.1 fl (81-99); Mean Platelet Volume 10.8 fl (7.4-10.4); Monocytes # 0.3 K/mm3 (0.1-1.0); Monocytes % 4.4 % (1.7-9.3); Neutrophils # 3.1 K/mm3 (1.8-7.8); Neutrophils % 49.6 % (37.0-80.0); Platelet Count 152 K/mm3 (142-424); Red Blood Count 4.79 M/mm3 (4.20-5.40); Red Cell Distribution Width 17.4 % (11.5-17.5); White Blood Count 6.3 K/mm3 (4.8-10.8)
[2022-06-25 08:22] LABS: Chloride 113 mmol/L (98-107)
[2022-06-25 08:23] LABS: Potassium 4.3 mmoL/L (3.5-5.1); Sodium 142 mmol/L (136-145)
[2022-06-25 08:25] LABS: Alanine Aminotransferase 10 U/L (12-78); Alkaline Phosphatase 131 U/L (38-126); Aspartate Amino Transferase 21 U/L (14-36); Bilirubin,Total 0.3 mg/dl (0.2-1.3); Blood Urea Nitrogen 16 mg/dl (7-17); Creatinine Clearance Estimated 48 mL/min (50-200); Estimated Glomerular Filt Rate 44 ml/min (>60); GFR (African American) 53 ML/MIN (>60)
[2022-06-25 08:26] LABS: Albumin Level 2.9 g/dl (3.5-5.0); Anion Gap 10.3 mEq/L (5-15); Calcium 8.2 mg/dl (8.4-10.2); Carbon Dioxide 23 mmol/L (22.0-30.0); Globulin 2.9 g/dL (1.3-3.2); Glucose 84 mg/dl (74-100); Total Protein,Serum 5.8 g/dl (6.3-8.2)
--- NOTE | 2022-06-25 10:09 | HMH.OTEV ---
OT Inpatient Evaluation Rehab OT IP Evaluation Start: 06/25/22 08:35 Freq: ONCE Status: Complete Protocol: Document 06/25/22 10:04 ZION (Rec: 06/25/22 10:09 [facility] [id number]) Rehab OT IP Assessment Subjective History Pt oriented x 3 on arrival. Pt agreeable to engage in therapy evaluation. Pt was admitted via ED on 06/23/22 due to a syncope episode. Prior to being in the hospital patient was residing at [facility]. Pt claims she was independent with all ADLs such as dressing, bathing, and feeding. However, she was dependent upon staff for completion of IADLs. Pt was using a rolling walker during ambulation. Subjective I don't really know why I'm here. Objective Patient Orientation Person,Place,Birthday Upper Extremity Gross ROM WFL Bed Mobility bed mobility-scooting,bed mobility - supine/sit,bed mobility - rolling Assist Level Independent Transfer Training Sit/Stand Transfer Assist Level Supervision/Stand by Lower Body Dressing Ability Standby Assistance Performing Toilet Hygiene Ability Standby Assistance Overall Commode/Toilet Transfer Ability Standby Assistance Commode/Toilet Transfer Technique Sit to/from Ambulatory Rehab OT IP prob,goals,plan Problems Date of Evaluation: 06/25/22 Rehab Potential Rehab Potential Innapropriate for Skilled Therapy Discharge Plan OT Discharge Plan At this time, pt appears to be at her baseline with functional transfers and ADL independence. Pt can return back to [facility] once she is medically stable per physician. Eval Complexity Eval Charge Codes 84772 - Low Complexity G Codes G -code Required No PHYSICIAN CERTIFICATION: I certify the specified therapy services for [facility] are required, authorized, and reviewed every 30 days.
--- NOTE | 2022-06-25 10:33 | HMH.PTEV ---
Physical Therapy Evaluation Rehab PT IP Evaluation Start: 06/25/22 08:35 Freq: ONCE Status: Active Protocol: Document 06/25/22 10:31 SHAWN (Rec: 06/25/22 10:33 SHAWN [id number]) Subjective/History History History 71 yowf adm to [facility] with syncopal episode and RISHI. She reports no memory of being found down at the personal half-way. She reports she uses a RW for all ambulation at baseline. Subjective Subjective Currently no c/o. Rehab PT IP Eval Objective Appearance Patient Behavior Appropriate Patient Orientation Person,Place,Time Difficulty following instructions none Speech Pattern Clear Ambulation Patient Able to Ambulate Yes Ambulation Observation IP General Gait Pattern Observation No Deviations/Normal Ambulation Distance (feet) 30 Ambulation Assistive Device Rolling Walker Ambulation Ability Supervision/Stand by Balance Ability to Arise Able, uses arms to help Sitting Balance Steady, safe Standing Balance Steady, wide stance Dynamic Sitting Balance Ability Normal Dynamic Standing Balance Ability Good Transfers Bed Transfer Ability Independent Chair Transfer Ability Supervision/Stand by Sit to Stand Bed Transfer Ability Supervision/Stand by Sit to Stand Chair Transfer Ability Supervision/Stand by ROM All Extremities PT ROM Status WFL MMT All Extremities PT MMT WFL Rehab PT IP prob,goals,plan Problems Date of Evaluation: 06/25/22 Discharge Plan PT Discharge Plan Pt appears to be at baseline for all mobility at this time and she is appropriate to return to personal half-way once medically stable. G -code Required No Eval Complexity Eval Charge Codes 49560 - Moderate Complexity PHYSICIAN CERTIFICATION: I certify the specified therapy services for [facility] are required, authorized, and reviewed every 30 days.
--- NOTE | 2022-06-25 11:11 | EXP.DC.SUM ---
General Admission date:: 06/23/22 Discharge date: 06/25/22 HPI HPI HPI: This is a 71-year-old female with past medical history of DVT on Xarelto, CHF, DM, hypertension, hyperlipidemia, renal insufficiency who resides at [facility] who presents emergency department today for syncopal episode. EMS was called when patient was found in her room at [facility]. At the time of arrival to the emergency department, unknown circumstances surrounding syncopal episode. She was able to ambulate with EMS but was noted to have blood pressure in the 70s. After initiation of IV fluids that she had an increase in her systolic blood pressure. Emergency department work-up significant for RISHI with a creatinine of 2.2, baseline of 0.6. CT head negative. All other laboratory evaluation unremarkable, urinalysis pending at the time of admission. Due to her RISHI and syncopal episode, she will be admitted to the hospital service for further evaluation and management On my exam patient does endorse some intermittent diarrhea over the last several days and feeling generally unwell. She also endorses episode of vomiting after syncopal episode. She denies any pain at this time. She is normostolic, resting comfortably. Hospital Course Hospital Course Hospital Course: This is a 71-year-old female with past medical history of DVT on Xarelto, CHF, DM, hypertension, hyperlipidemia, renal insufficiency who was admitted for syncope that was likely secondary to dehydration and hypoglycemia. Patient is prescribed glimepiride and Farxiga for diabetes, however her A1c in September was 5.7, and was 5.3 yesterday. Additionally patient has chronic kidney disease and Farxiga is contraindicated in chronic kidney disease. Glimepiride and Farxiga are therefore both discontinued. Patient had an RISHI on admission with creatinine of 2.2 this improved to 1.7 yesterday morning and then again two 1.2 this morning. Overall patient appears to be at her medical, functional, and mental baseline and is therefore ready for discharge back to [facility]. Exam Data for Last 24 hours Vital signs and Labs for Last 24 Hours: Temp Pulse Resp BP Pulse Ox 98.4 F 85 18 116/78 94 L 06/25/22 08:00 06/25/22 08:00 06/25/22 08:00 06/25/22 08:00 06/25/22 08:00 Laboratory Results - last 24 hr 06/24/22 06:25: Hemoglobin A1c 5.3 06/24/22 11:51: POC Glucose 77 06/24/22 17:02: POC Glucose 84 06/25/22 08:03: WBC 6.3, RBC 4.79, Hgb 13.5, Hct 43.1, MCV 90.1, MCH 28.2, MCHC 31.3 L, RDW 17.4, Plt Count 152, MPV 10.8 H, Neut % (Auto) 49.6, Lymph % (Auto) 37.6, [place] % (Auto) 4.4, Eos % (Auto) 7.9, Baso % (Auto) 0.5, Neut # (Auto) 3.1, Lymph # (Auto) 2.4, [place] # (Auto) 0.3, Eos # (Auto) 0.5 H, Baso # (Auto) 0.0 06/25/22 08:03: Sodium 142, Potassium 4.3, Chloride 113 H, Carbon Dioxide 23, Anion Gap 10.3, BUN 16 D, Creatinine 1.20 H D, Estimated Creat Clear 48, Estimated GFR 44 L, Est GFR ( Amer) 53 L D, Glucose 84, Calcium 8.2 L, Total Bilirubin 0.3, AST 21, ALT 10 L D, Alkaline Phosphatase 131 H, Total Protein 5.8 L, Albumin 2.9 L, Globulin 2.9, Albumin/Globulin Ratio 1.0 L I & O for Last 24 hours: Intake & Output 06/22/22 06/23/22 06/24/22 06/25/22 23:59 23:59 23:59 23:59 Intake Total 2829 / 2829 1871 / 1871 Output Total 450 / 450 400 / 400 Balance 2379 / 2379 1471 / 1471 Weight 66.95 kg 71.486 kg Constitutional Constitutional: no acute distress, chronically ill appearing and cooperative Comments: more energetic appearing today *Routine HEENT Exam Head: Present normocephalic and atraumatic Eye: Present EOMI and PERRL ENT: Present mucous membranes dry and oropharynx clear *Routine Neck Exam Neck: Present supple and full ROM *Routine Respiratory Exam Respiratory: Present crackles (bibasilar ); Absent accessory muscle use or respiratory distress *Routine Cardiovascular Exam Cardiovascular: Present RRR, Normal S1 and Normal S2; Absent murmur *Routine Abdominal Exam Abdominal:
--- NOTE | 2022-06-25 14:13 | SW/DCPLANNER ---
I have arranged [employer] for this patient back to [facility]: reference number [id number].
--- NOTE | 2022-06-26 12:58 | CARE MANAGER ---
Attempted to contact patient at [facility] and had no VM option.
== END 2022-06-25 15:25 | disposition home or self-care (01) ==
LOC: ER 19:45 → 2ND 20:25
PROVIDERS: Internal Medicine Adolescent Medicine; Nurse Practitioner Acute Care; Admitting Provider Emergency Medicine; Emergency Provider Emergency Medicine; PCP Emergency Medicine; Visit Provider Emergency Medicine
DX: N17.9 Acute kidney failure, unspecified (principal); I13.0 Hypertensive heart and chronic kidney disease with heart failure and stage 1 through stage 4 chronic kidney disease, or unspecified chronic kidney disease; E78.5 Hyperlipidemia, unspecified; Z79.01 Long term (current) use of anticoagulants; E11.22 Type 2 diabetes mellitus with diabetic chronic kidney disease; I50.32 Chronic diastolic (congestive) heart failure; Z86.718 Personal history of other venous thrombosis and embolism; N18.9 Chronic kidney disease, unspecified; E86.0 Dehydration
CPT/HCPCS: G0378; 36415; 70450; 71045; 73502; 80048; 80053; 81001; 82962; 83036; 83735; 85025; 93005; 97162; 97165; 99285; C9803; U0003; U0005

== ENCOUNTER → 2022-07-24 10:20 | Outpatient (CLI) | payer MEDICARE, MEDICAID, SELFPAY ==
--- NOTE | 2022-07-24 10:26 | XR_ITS ---
FINAL REPORT CLINICAL HISTORY: knee pain, right FINDINGS: Right knee Three views were obtained. There is no acute fracture or dislocation. The joint spaces appear normal. The bones are osteopenic. There is mild vascular calcification. IMPRESSION: No acute process. Reviewed, Interpreted and Dictated by Eloy Clay MD Transcribed by Ryanne Newman Authenticated and [facility]
--- NOTE | 2022-07-24 10:26 | XR_ITS ---
FINAL REPORT CLINICAL HISTORY: knee pain, left FINDINGS: Left knee Three views were obtained. There is no acute fracture or dislocation. The joint spaces appear normal. The bones are osteopenic. There is mild vascular calcification. IMPRESSION: No acute process. Reviewed, Interpreted and Dictated by Eloy Clay MD Transcribed by Ryanne Newman Authenticated and [facility]
== END ==
PROVIDERS: PCP Emergency Medicine; Visit Provider Orthopaedic Surgery
DX: M25.561 Pain in right knee (principal); M25.562 Pain in left knee
CPT/HCPCS: 73562

== ENCOUNTER 2022-08-08 10:40 | Observation (INO) | payer MEDICARE, MEDICAID, SELFPAY ==
[2022-08-08] VITALS (10 sets, daily range): BP systolic 130–178; BP diastolic 70–99; PULSE 82–101; RESP 18–20; TEMP 36.8–37.2; O2SAT 91–99; BMI 26.6; BMI 26.0
--- NOTE | 2022-08-08 | ECG_ITS ---
APPROVED REPORT Exam: Resting ECG HR:93 bpm ECG Measurements Heart Rate 93 AXES DC 143 P 80 QRSd 71 QRS 87 QT 361 T 78 QTc 411 Conclusion SINUS RHYTHM NORMAL ECG UNCONFIRMED REPORT Electronically signed by : Angel Zhong MD 08/08/2022 13:08:27
--- NOTE | 2022-08-08 10:56 | PC.NURSE ---
lab to collect type and screen
--- NOTE | 2022-08-08 11:25 | CT_ITS ---
FINAL REPORT TECHNIQUE: Axial imaging of the head was obtained without contrast. This study was performed with techniques to keep radiation doses as low as reasonably achievable, (ALARA). Individualized dose reduction techniques using automated exposure control or adjustment of mA and/or kV according to the patient''s size were employed. CLINICAL HISTORY: falls X 2, on anticoagulation COMPARISON: June 2022 FINDINGS: There is advanced atrophy with proportionate ventriculomegaly. There is extensive chronic microvascular ischemia. There is no evidence of hemorrhage. No masses are identified. No extra-axial fluid is seen. There is mild mucoperiosteal thickening in the maxillary sinuses. There are no air-fluid levels. There is no acute osseous abnormality. IMPRESSION: Advanced atrophy with extensive changes of chronic microvascular ischemia. No acute intracranial abnormality. Reviewed, Interpreted and Dictated by Eloy Clay MD Transcribed by Pedro Hernandez Authenticated and [facility]
--- NOTE | 2022-08-08 11:25 | XR_ITS ---
FINAL REPORT CLINICAL HISTORY: hypoxia COMPARISON: June 2022 FINDINGS: There is mild cardiomegaly. The mediastinum is within normal limits. There are chronic changes in the lung bases. There is no acute cardiopulmonary process. There is no pleural effusion. There is no pneumothorax. The bony thorax is intact. IMPRESSION: No acute cardiopulmonary process. Reviewed, Interpreted and Dictated by Eloy Clay MD Transcribed by Pedro Hernandez Authenticated and [facility]
--- NOTE | 2022-08-08 11:28 | HMH.EDGENADL ---
Discharge Plan Disposition Patient Disposition: Admitted as Observation Condition: Fair Clinical Impressions Clinical Impression: Influenza A, Acute respiratory failure with hypoxia Discharge ED Provider: Al Whittington General Adult HPI General Chief complaint: Fall Stated complaint: fall Time Seen by Provider: 08/08/22 11:10 Mode of Arrival: EMS Source of Information: Patient Limitations: No Limitations Description of Symptoms (Recalled from ER Triage Doc. by RN): pt to ed r/t fall yesterday. pt states she has no complaints. pt denies pain. History of Present Illness HPI narrative: Patient is brought in by ambulance from [facility]. She is a poor historian. Additional history obtained by visiting professor calling [facility] for information. [facility] reports the patient fell yesterday and this morning. The patient tells me that she fell off the toilet yesterday, but did not injure herself. She says she has no complaints today and coming to the emergency department was not my idea . She says that personnel at [facility] called for her to be brought in and she is not sure why. She says she did not have a syncopal episode to follow-up with toilet. She does not know why she fell off the toilet but says it has happened in the past. She denies being currently ill. Denies URI symptoms, chest pain, shortness of breath, fever, vomiting, diarrhea, urinary symptoms. Related Data Home Medications Medication Instructions Recorded Confirmed albuterol sulfate 90 mcg/actuation 2 puffs inhalation Q4HP PRN 10/17/21 07/24/22 breath activated powder inhaler Shortness Of Breath allopurinol 100 mg tablet 50 mg PO DAILY GOUT 10/17/21 07/24/22 aspirin 81 mg chewable tablet 81 mg PO DAILY heart health 10/17/21 07/24/22 cyclobenzaprine 5 mg tablet 5 mg PO Q8HP PRN Muscle Spasm 10/17/21 07/24/22 montelukast 10 mg tablet 10 mg PO PM Allergy symptoms 10/17/21 07/24/22 potassium chloride 10 mEq 10 meq PO DAILY Supplement 10/17/21 07/24/22 tablet,extended release pravastatin 80 mg tablet 80 mg PO HS Cholesterol 10/17/21 07/24/22 rivaroxaban 20 mg tablet 20 mg PO QPMWITHMEAL Blood 10/17/21 07/24/22 thinner/DVT history sertraline 50 mg tablet 50 mg PO DAILY Depression 10/17/21 07/24/22 fluticasone furoate 100 1 puff inhalation DAILY Breathing 10/18/21 07/24/22 mcg-vilanterol 25 mcg/dose problems inhalation powder famotidine 20 mg tablet 20 mg PO DAILY acid reflux 03/10/22 07/24/22 lisinopril 30 mg tablet 30 mg PO DAILY Hypertension 03/10/22 07/24/22 metoprolol succinate 50 mg 50 mg PO DAILY Hypertension 03/10/22 07/24/22 tablet,extended release 24 hr Previous Rx's Medication Instructions Recorded gabapentin 300 mg capsule 300 mg PO TID Pain #90 caps 06/27/22 celecoxib 200 mg capsule (Celebrex) 200 mg PO DAILY #30 caps 07/24/22 Allergies Allergy/AdvReac Type Severity Reaction Status Date / Time acetaminophen [From Tylenol] Allergy Unknown Verified 07/24/22 11:35 PFSH PFSH Medical History Cancer of kidney Congestive heart failure COPD (chronic obstructive pulmonary disease) History of DVT (deep vein thrombosis) Continue Xarelto Hypertension Surgical History H/O tubal ligation History of kidney surgery Family History Mother Family history of cancer Sister Family history of cancer Social History Smoking Status: Never smoker alcohol intake: never current occupational status: retired Travel in the last 8 weeks: None household members: other housing: assisted living facility ROS Obtained: Yes Systems reviewed as appropriate & no additional complaints except as documented Constitutional Constitutional: Denies fever(s), Denies headache(s) and Denies weakness ENT Ears, Nose, Mouth, a
[2022-08-08 12:09] LABS: ABG Base Excess 1.6 mmol/L (-2.4-2.3); ABG HCO3 26.2 mmhg (22.0-26.0); ABG Oxygen Saturation 90 % (90-100); ABG PH 7.41 mmol/L (7.35-7.45); ABG PO2 53.5 mmhg (80-100); ABG TCO2 27.5 mmhg (23-27)
[2022-08-08 12:16] LABS: Allen's Test ACCEPTABLE; Oxygen 2LPM %; Source R RADIAL
[2022-08-08 12:16] LABS: Coronavirus 19, PCR Not Detected (NotDetected); Influenza B, PCR Not Detected (NotDetected)
[2022-08-08 12:32] LABS: Chloride 103 mmol/L (98-107)
[2022-08-08 12:33] LABS: Sodium 135 mmol/L (136-145)
[2022-08-08 12:35] LABS: Alanine Aminotransferase 14 U/L (12-78); Alkaline Phosphatase 131 U/L (38-126); Aspartate Amino Transferase 24 U/L (14-36); Bilirubin,Total 0.5 mg/dl (0.2-1.3); Blood Urea Nitrogen 10 mg/dl (7-17); Creatinine Clearance Estimated 49 mL/min (50-200); Estimated Glomerular Filt Rate 44 ml/min (>60); GFR (African American) 53 ML/MIN (>60)
[2022-08-08 12:36] LABS: Albumin Level 3.4 g/dl (3.5-5.0); Albumin/Globulin Ratio 1.1 (1.1-1.8); Calcium 9.1 mg/dl (8.4-10.2); Carbon Dioxide 29 mmol/L (22.0-30.0); Globulin 3.1 g/dL (1.3-3.2); Glucose 95 mg/dl (74-100); Total Protein,Serum 6.5 g/dl (6.3-8.2)
[2022-08-08 12:39] LABS: Basophils # 0.1 K/mm3 (0-0.2); Eosinophils # 0.2 K/mm3 (0.0-0.4); Eosinophils % 2.5 % (0.1-12.0); Hematocrit 44.9 % (37.0-47.0); Hemoglobin 13.4 g/dL (12.2-16.2); Influenza A, PCR Detected (NotDetected); Lymphocytes # 1.5 K/mm3 (0.7-4.5); Lymphocytes % 24.1 % (10-50); Mean Corpuscular HGB Conc 29.9 g/dL (31.8-35.4); Mean Corpuscular Hemoglobin 28.1 pg (27.0-31.2); Mean Corpuscular Volume 94.1 fl (81-99); Mean Platelet Volume 10.1 fl (7.4-10.4); Monocytes # 0.5 K/mm3 (0.1-1.0); Monocytes % 7.8 % (1.7-9.3); Neutrophils % 64.6 % (37.0-80.0); Platelet Count 141 K/mm3 (142-424); Red Blood Count 4.77 M/mm3 (4.20-5.40); Red Cell Distribution Width 17.7 % (11.5-17.5); White Blood Count 6.1 K/mm3 (4.8-10.8)
[2022-08-08 12:45] LABS: NT Pro Brain Natriuretic Pep. 2520 pg/mL (0-125)
[2022-08-08 12:56] LABS: Troponin I < 0.01 ng/ml (0.00-0.034)
[2022-08-08 13:34] LABS: D-Dimer 0.97 ug/mL (0.0-0.5)
--- NOTE | 2022-08-08 13:42 | CT_ITS ---
FINAL REPORT TECHNIQUE: Thin section axial CT images were obtained from the lung apices to the upper abdomen. IV contrast was administered. MIP 3-D reformats were obtained. This study was performed with techniques to keep radiation doses as low as reasonably achievable (ALARA). Individualized dose reduction techniques using automated exposure control or adjustment of mA and/or kV according to the patient's size were employed. CLINICAL HISTORY: hypoxia, h/o dvt, elev d-dimer FINDINGS: The mediastinal vasculature is well opacified. There is a 1.7 cm heterogeneous nodule in the right lobe of the thyroid. The heart size is normal. There is no adenopathy. There is no filling defect to suggest PE. There is an aberrant right subclavian artery. There is no aortic dissection. There is no pericardial effusion. There is scarring in the lung bases. There is no suspicious infiltrate or nodule. No pleural effusion. Limited images of the upper abdomen demonstrate a 2.8 x 2.3 cm heterogeneous partially enhancing nodule in the left adrenal gland. There are partially visualized benign-appearing cysts in both kidneys. IMPRESSION: No pulmonary embolism or aortic dissection. Indeterminate heterogeneous right thyroid nodule. Recommend thyroid ultrasound. 2.8 cm left adrenal nodule does not have the appearance of an adenoma. Better characterization with dedicated adrenal protocol CT is recommended. Reviewed, Interpreted and Dictated by Eloy Clay MD Transcribed by Pedro Hernandez Authenticated and [facility]
[2022-08-08 14:56] LABS: Microscopic, Urine URINE MICROSCOPIC (MICROSCOPIC)
[2022-08-08 15:01] LABS: Appearance,Urine CLEAR (Clear); Bilirubin,Urine Negative (Negative); Blood, Urine TRACE-I (Negative); Color,Urine YELLOW (Yellow); Glucose,Urine (UA) Negative (Negative); Ketones,Urine Negative (Negative); Leukocyte Esterase,Urine Negative (Negative); Nitrate,Urine Negative (Negative); Protein,Urine Negative (Negative); Specific Gravity, Urine 1.015 (1.005-1.030); Urobilinogen,Urine 0.2 EU/dl (0.2)
[2022-08-08 15:26] LABS: RBC,Urine Occasional #/hpf (0-3); Squamous Epithelial Cell,Urine Occasional #/hpf (0-5); WBC,Urine Occasional #/hpf (0-3)
[2022-08-08 15:27] LABS: Troponin I < 0.01 ng/ml (0.00-0.034)
--- NOTE | 2022-08-08 16:06 | PC.NURSE ---
spoke with Dr Stephen about pt and he stated he would call back in 2 minutes
--- NOTE | 2022-08-08 16:20 | PC.NURSE ---
called house for bed
--- NOTE | 2022-08-08 17:45 | PC.NURSE ---
called report to ravinder britt rn
--- NOTE | 2022-08-08 18:22 | PC.NURSE ---
arrived to floor by wheelchair from ED
--- NOTE | 2022-08-08 19:45 | PC.NURSE ---
PT IS AOX2 SINCE ARRIVING FROM THE ER. ABLE TO TELL ME HER NAME . ANSWERS SIMPLE YES AND NO QUESTIONS DIFFICULT TO COMPLETE ADMISSION PT IS A POOR HISTORIAN
--- NOTE | 2022-08-08 22:37 | EXP.HP ---
History of Present Illness *Admission Date: 08/08/22 *Reason for visit:: Hypoxia *History of present illness: Ms. Key is a 71-year-old female with a past medical history of DVT on Xarelto, CHF, DM, Hypertension, Hyperlipidemia and Renal insufficiency. She is a resident of an assisted living facility. She was brought into the ER due to Hypoxia. Work-up in the ER was positive for Flu A. She was noted to have a pO2 of 53 on ABG on 2L. Cxray showed no acute cardiopulmonary findings. CTA of the chest showed an incidental thyroid and adrenal nodule. The patient is noted to have dementia. She is only oriented to person and place. Information for the history and physical was taken from the patient's chart and notes from the care facility. [facility] Disclaimer: The information contained in this section may have been updated after the patient was seen, as this information can be updated by other users. Medical History (Updated 08/09/22 @ 15:02 by Neto Stephen MD) Cancer of kidney Congestive heart failure COPD (chronic obstructive pulmonary disease) History of dementia History of DVT (deep vein thrombosis) History of fall History of gastroesophageal reflux (GERD) History of gout History of hyperlipidemia History of hypoglycemia History of renal insufficiency Hypertension Surgical History H/O tubal ligation History of kidney surgery Family History Mother Family history of cancer Sister Family history of cancer Social History Smoking Status: Never smoker alcohol intake: never substance use type: denies use and unknown current occupational status: retired Travel in the last 8 weeks: None caregiver/support person: No ([facility] ) household members: other housing: assisted living facility lives independently: Yes marital status: unknown special shad needs: No Review of Systems Review of Systems Review of systems:: unable to obtain Review of systems (narrative): Patient is not oriented, this is her baseline. Constitutional Constitutional: Denies headache(s) and Denies weakness ENT Ears, Nose, Mouth, and Throat: Denies headache(s) *Musculoskeletal Musculoskeletal: Denies numbness *Neurologic Neurologic: Denies headache(s), Denies numbness and Denies weakness Meds Home Medications and Allergies Home Medications Medication Instructions Recorded Confirmed Type albuterol sulfate 90 mcg/actuation 2 puffs inhalation Q4HP PRN 10/17/21 08/09/22 History breath activated powder inhaler Shortness Of Breath allopurinol 100 mg tablet 50 mg PO DAILY GOUT 10/17/21 08/09/22 History aspirin 81 mg chewable tablet 81 mg PO DAILY heart health 10/17/21 08/09/22 History cyclobenzaprine 5 mg tablet 5 mg PO Q8HP PRN Muscle Spasm 10/17/21 08/09/22 History montelukast 10 mg tablet 10 mg PO PM Allergy symptoms 10/17/21 08/09/22 History potassium chloride 10 mEq 10 meq PO DAILY Supplement 10/17/21 08/09/22 History tablet,extended release pravastatin 80 mg tablet 80 mg PO HS Cholesterol 10/17/21 08/09/22 History rivaroxaban 20 mg tablet 20 mg PO QPMWITHMEAL Blood 10/17/21 08/09/22 History thinner/DVT history sertraline 50 mg tablet 50 mg PO DAILY Depression 10/17/21 08/09/22 History fluticasone furoate 100 1 puff inhalation DAILY Breathing 10/18/21 08/09/22 History mcg-vilanterol 25 mcg/dose problems inhalation powder famotidine 20 mg tablet 20 mg PO DAILY acid reflux 03/10/22 08/09/22 History lisinopril 30 mg tablet 30 mg PO DAILY Hypertension 03/10/22 08/09/22 History gabapentin 300 mg capsule 300 mg PO TID Pain #90 caps 06/27/22 08/09/22 Rx dextromethorphan-guaifenesin 30 1 tab PO DAILY Congestion/chest 08/09/22 08/09/22 History mg-600 mg tablet extended congesti [id number] hr (Mucinex DM) loperamide 2 mg tablet
[2022-08-09] VITALS: BP 131/90; PULSE 94; RESP 24; TEMP 36.6; O2SAT 92
--- NOTE | 2022-08-09 00:24 | ECG_ITS ---
APPROVED REPORT Exam: Resting ECG HR:97 bpm ECG Measurements Heart Rate 97 AXES QRSd 74 QRS 71 QT 380 T 71 QTc 435 Conclusion ATRIAL FIBRILLATION ABNORMAL RHYTHM ECG UNCONFIRMED REPORT Electronically signed by : Angel Zhong MD 08/09/2022 21:32:46
--- NOTE | 2022-08-09 00:30 | PC.NURSE ---
0011 noted heart rate irregular 92-113; ekg obtained, sandra lamas aprn called and notified of pt hr and ekg noted to be atrial fibrillation hr 97 and noted ekg obtained in er was noted to nsr, no new orders at this time, sandra kelsey also noted of pt sleeping if not disturbed, pt arousable upon name calling but goes right back to sleep and noted was difficulty to stay awake to swallow pills and had to be instructed to swallow. no acute distress noted.
[2022-08-09 04:00] VITALS: BP 120/73; PULSE 78; RESP 24; TEMP 36.6; O2SAT 96
--- NOTE | 2022-08-09 05:15 | PC.NURSE ---
unable to weight patient this am due to sleepiness and weakness, pt is unable to stand and bed does not weigh.
--- NOTE | 2022-08-09 05:19 | PC.NURSE ---
no change from previous assessment, pt is alert and oriented to name, bd and time, oriented to place at times, pt noted with some mild dementia at times, pt sleeps mostly unless name called, pt is incontinent of urine, attempted purewick and brief was placed, was difficult to keep pt awake to swallow meds, skin pwd with some redness and excoriation noted to buttocks/rectal area, and also to skin folds under abd, noted hr to be irregular and ekg was obtained and noted to be in atrial fib, sandra fraga aprn was notified with no new orders at this time, stated pt has apparent history of atrial fib. VSS, no acute distress
--- NOTE | 2022-08-09 07:46 | P.CONPHA_ITS ---
Pharmacy Intervention Comments: Medication reconciliation completed via chart review and MAR from [facility] facility. -Dori Worthington, PharmD Candidate 2022
--- NOTE | 2022-08-09 07:46 | HMH.PHAINT1 ---
Pharmacy Intervention Comments: Medication reconciliation completed via chart review and MAR from intermediate facility. -Dori Worthington, PharmD Candidate 2022
[2022-08-09 08:00] VITALS: BP 152/90; PULSE 71; RESP 22; TEMP 37.1; O2SAT 95
--- NOTE | 2022-08-09 08:06 | HMH.PTEV ---
Physical Therapy Evaluation Rehab PT IP Evaluation Start: 08/08/22 16:19 Freq: ONCE Status: Active Protocol: Document 08/09/22 08:01 KB (Rec: 08/09/22 08:05 KB [id number]) Subjective/History History History Ms. Key is a 71-year-old female with a past medical history of DVT on Xarelto, CHF , DM, Hypertension, Hyperlipidemia and Renal insufficiency. She is a resident of an assisted living facility. She was brought into the ER due to Hypoxia. Work-up in the ER was positive for Flu A. copied from H&P Subjective Subjective Pt alert to name, birthday and year - new she was in hospital but not which one - pt did not wish to get OOB but agreed after VC's Rehab PT IP Eval Objective Appearance Patient Behavior Cooperative,Passive Patient Orientation Name,Birthday,Year,Situation Difficulty following instructions mild Speech Pattern Appropriate Ambulation Patient Able to Ambulate Yes Ambulation Observation IP General Gait Pattern Observation Shuffling Step Ambulation Distance (feet) 15 Ambulation Assistive Device None Ambulation Ability Contact Guard/Hand Hold Balance Ability to Arise Able, uses arms to help Sitting Balance Steady, safe Standing Balance Steady, wide stance Dynamic Sitting Balance Ability Good Dynamic Standing Balance Ability Fair Transfers Bed Transfer Ability Independent Chair Transfer Ability Independent Sit to Stand Bed Transfer Ability Contact Guard/Hand Hold Sit to Stand Chair Transfer Ability Contact Guard/Hand Hold Rehab PT IP prob,goals,plan Problems Date of Evaluation: 08/09/22 PT IP Problems Transfers,Gait,Balance,Self care,Safety Rehab Potential Rehab Potential Fair Equipment Needs Assistive Devices Rolling / Wheeled Walker Plan PT Intervention Plan Transfers,Gait,Balance,Self care,Safety,Therapeutic Exercise PT Plan Frequency BID Duration LOS Discharge Goals Sit to Stand Chair Transfer Ability Supervision/Stand by,Contact Guard/Hand Hold Ambulation Assistive Device Rolling Walker Ambulation Distance (feet)
[2022-08-09 08:08] LABS: Basophils % 0.5 % (0.1-2.0); Hematocrit 46.7 % (37.0-47.0); Hemoglobin 13.7 g/dL (12.2-16.2); Lymphocytes % 19.1 % (10-50); Mean Corpuscular HGB Conc 29.3 g/dL (31.8-35.4); Mean Corpuscular Hemoglobin 27.9 pg (27.0-31.2); Mean Corpuscular Volume 95.4 fl (81-99); Mean Platelet Volume 10.6 fl (7.4-10.4); Monocytes # 0.2 K/mm3 (0.1-1.0); Monocytes % 3.2 % (1.7-9.3); Neutrophils # 3.9 K/mm3 (1.8-7.8); Neutrophils % 77.2 % (37.0-80.0); Platelet Count 160 K/mm3 (142-424); Red Blood Count 4.89 M/mm3 (4.20-5.40); Red Cell Distribution Width 17.8 % (11.5-17.5); White Blood Count 5.1 K/mm3 (4.8-10.8)
[2022-08-09 08:09] LABS: Chloride 104 mmol/L (98-107)
[2022-08-09 08:10] LABS: Potassium 4.5 mmoL/L (3.5-5.1); Sodium 136 mmol/L (136-145)
[2022-08-09 08:12] LABS: Alanine Aminotransferase 11 U/L (12-78); Alkaline Phosphatase 118 U/L (38-126); Anion Gap 10.5 mEq/L (5-15); Aspartate Amino Transferase 21 U/L (14-36); Bilirubin,Total 0.3 mg/dl (0.2-1.3); Blood Urea Nitrogen 18 mg/dl (7-17); Carbon Dioxide 26 mmol/L (22.0-30.0); Creatinine Clearance Estimated 53 mL/min (50-200); Estimated Glomerular Filt Rate 49 ml/min (>60); GFR (African American) 59 ML/MIN (>60); Glucose 138 mg/dl (74-100)
[2022-08-09 08:13] LABS: Albumin Level 3.3 g/dl (3.5-5.0); Albumin/Globulin Ratio 1.2 (1.1-1.8); Calcium 9.2 mg/dl (8.4-10.2); Globulin 2.8 g/dL (1.3-3.2); Magnesium 1.8 mg/dl (1.6-2.3); Total Protein,Serum 6.1 g/dl (6.3-8.2)
--- NOTE | 2022-08-09 09:29 | HMH.OTEV ---
OT Inpatient Evaluation Rehab OT IP Evaluation Start: 08/08/22 16:19 Freq: ONCE Status: Complete Protocol: Document 08/09/22 09:24 PATJOY (Rec: 08/09/22 09:29 PATJOY [id number]) Rehab OT IP Assessment Subjective History Ms. Key is a 71-year-old female with a past medical history of DVT on Xarelto, CHF , DM, Hypertension, Hyperlipidemia and Renal insufficiency. She is a resident of an assisted living facility. She was brought into the ER due to Hypoxia. Work-up in the ER was positive for Flu A. She was noted to have a pO2 of 53 on ABG on 2L. Cxray showed no acute cardiopulmonary findings. CTA of the chest showed an incidental thyroid and adrenal nodule. The patient is noted to have dementia. She is only oriented to person and place. Information for the history and physical was taken from the patient's chart and notes from the care facility. PMH: Cancer of kidney Congestive heart failure COPD (chronic obstructive pulmonary disease) History of DVT (deep vein thrombosis) Hypertension Patient stated to live in assistance living facility and used a RW to ambulate. Nursing staff would assist ADLs as needed, however Patient would need to be mostly indepndent with all ADLs. Subjective I can get up. Instructed Patient on safety awareness during sit->stand and maneuvering througout environment this date as well as assessing LB drsg. Patient completed all tasks with Min/ CGA. Objective Patient Orientation Person,Name,A
--- NOTE | 2022-08-09 11:39 | SW/DCPLANNER ---
Addendum entered by Janessa Lau 08/09/22 15:23: Patient does not require a COVID swab prior to discharge. Original Note: This patient currently resides at [facility]: I have called and updated Patsy hernandez/ Akin Carson regarding this patient. The plan for this patient is to return to [facility] today. FTSB will be arranged once medically stable for discharge.
--- NOTE | 2022-08-09 12:00 | PC.NURSE ---
RA at rest is 95%
--- NOTE | 2022-08-09 14:56 | EXP.DC.SUM ---
General Admission date:: 08/08/22 HPI HPI HPI: Ms. Key is a 71-year-old female with a past medical history of DVT on Xarelto, CHF, DM, Hypertension, Hyperlipidemia and Renal insufficiency. She is a resident of an assisted living facility. She was brought into the ER due to Hypoxia. Work-up in the ER was positive for Flu A. She was noted to have a pO2 of 53 on ABG on 2L. Cxray showed no acute cardiopulmonary findings. CTA of the chest showed an incidental thyroid and adrenal nodule. The patient is noted to have dementia. She is only oriented to person and place. Information for the history and physical was taken from the patient's chart and notes from the care facility. Hospital Course Hospital Course Hospital Course: 71-year-old female who is a resident of an assisted living facility presents due to acute hypoxia, found to have Flu A Acute Hypoxic Respiratory Failure Influenza A - ABG on admission showed a pO2 of 53.2, on 2L nasal cannula in the 80's on room air. Monitored overnight on supplemental oxygen. Found to be flu positive. Started on Tamiflu. Following morning, room air sat of 93%. Able to wean off oxygen but no further requirement. Stable on room air for discharge back to her personal [place] [facility]. Plan to complete 5 days total of Tamiflu. CKD - Close to most recent baseline, monitored during admission. DVT on anticoagulation: continued home Xarelto Diabetes: Sliding scale while hospitalized Hypertension: continue home regime Hyperlipidemia: continue home statin Stable to discharge back to facility. Exam Data for Last 24 hours Vital signs and Labs for Last 24 Hours: Temp Pulse Resp BP Pulse Ox 98.7 F 71 22 152/90 H 95 08/09/22 08:00 08/09/22 08:00 08/09/22 08:00 08/09/22 08:00 08/09/22 08:00 Laboratory Results - last 24 hr 08/08/22 14:49: Urine Color Yellow, Urine Appearance Clear, Urine pH 7.0, Ur Specific [place] 1.015, Urine Protein Negative, Urine Glucose (UA) Negative, Urine Ketones Negative, Urine Blood Trace-i, Urine Nitrate Negative, Urine Bilirubin Negative, Urine Urobilinogen 0.2, Ur Leukocyte Esterase Negative, Urine RBC Occasional, Urine WBC Occasional, Ur Squamous Epith Cells Occasional, Urine Bacteria None 08/08/22 14:50: Troponin I < 0.01 08/09/22 06:40: WBC 5.1, RBC 4.89, Hgb 13.7, Hct 46.7, MCV 95.4, MCH 27.9, MCHC 29.3 L, RDW 17.8 H, Plt Count 160, MPV 10.6 H, Neut % (Auto) 77.2, Lymph % (Auto) 19.1, Sharkey % (Auto) 3.2, Eos % (Auto) 0.0 L, Baso % (Auto) 0.5, Neut # (Auto) 3.9, Lymph # (Auto) 1.0, Sharkey # (Auto) 0.2, Eos # (Auto) 0.0, Baso # (Auto) 0.0 08/09/22 06:40: Sodium 136, Potassium 4.5, Chloride 104, Carbon Dioxide 26, Anion Gap 10.5, BUN 18 H D, Creatinine 1.10 H, Estimated Creat Clear 53, Estimated GFR 49 L, Est GFR ( Amer) 59, Glucose 138 H D, Calcium 9.2, Magnesium 1.8, Total Bilirubin 0.3, AST 21, ALT 11 L, Alkaline Phosphatase 118, Total Protein 6.1 L, Albumin 3.3 L, Globulin 2.8, Albumin/Globulin Ratio 1.2 I & O for Last 24 hours: Intake & Output 08/06/22 08/07/22 08/08/22 08/09/22 23:59 23:59 23:59 23:59 Intake Total 923 / 923 Output Total 0 / 0 0 / 0 Balance 0 / 0 923 / 923 Weight 73.17 kg Constitutional Constitutional: no acute distress, average body habitus and chronically ill appearing *Routine HEENT Exam Head: Present normocephalic Eye: Present EOMI and PERRL ENT: Present mucous membranes moist *Routine Neck Exam Neck: Present supple; Absent lymphadenopathy *Routine Respiratory Exam Respiratory: Present CTA bilaterally; Absent accessory muscle use *Routine Cardiovascular Exam Cardiovascular: Present RRR *Routine Abdominal Exam Abdominal: Present soft and normoactive bowel sounds; Absent tenderness *Routine Rectal Exam Patient deferred: visual exam *Routine Exam Patient deferred: external exam *Routine Extremities Exam Extremities: Absent cyanosis, clubbing or edema *Routine Skin Exam Skin: Present warm; Absent rash *R
--- NOTE | 2022-08-09 15:09 | P.CONPHA_ITS ---
Pharmacy Intervention Comments: Discharge medication information sent back to [facility] where patient will be residing.
--- NOTE | 2022-08-09 15:09 | HMH.PHAINT1 ---
Pharmacy Intervention Comments: Discharge medication information sent back to [facility] where patient will be residing.
--- NOTE | 2022-08-10 14:40 | CARE MANAGER ---
Spoke with Rosie at [facility], patient is doing well and has no issues.
== END 2022-08-09 16:26 | disposition home or self-care (01) ==
LOC: ER 16:09 → 2ND 16:31
PROVIDERS: Admitting Provider Internal Medicine Adolescent Medicine; Emergency Provider Emergency Medicine; PCP Emergency Medicine; Visit Provider Internal Medicine Adolescent Medicine
DX: J10.1 Influenza due to other identified influenza virus with other respiratory manifestations (principal); J96.01 Acute respiratory failure with hypoxia; E78.5 Hyperlipidemia, unspecified; I50.32 Chronic diastolic (congestive) heart failure; I11.0 Hypertensive heart disease with heart failure; E11.9 Type 2 diabetes mellitus without complications; N18.9 Chronic kidney disease, unspecified; Z79.01 Long term (current) use of anticoagulants; Z79.899 Other long term (current) drug therapy; Z86.718 Personal history of other venous thrombosis and embolism
CPT/HCPCS: G0378; 36415; 70450; 71045; 71275; 80053; 81001; 82803; 83735; 83880; 84484; 85025; 85378; 93005; 94640; 94760; 94761; 97116; 97162; 97165; 97530; 99285; C9803; Q9967; U0003; U0005